=== PATIENT | male | born 1945 | race Caucasian/White ===

== ENCOUNTER 2016-10-18 05:23 | Inpatient (IN) | payer OTHER ==
--- NOTE | 2016-10-18 05:28 | PDOC ---
History of Present Illness - History of Present Illness Initial Comments: 10/18/16 06:04 The patient is a 72-year-old male BIB daughter via car with a significant past medical history of hypertension, hypercholesterolemia, diabetes, s/p triple bypass surgery, cardiac stent, paroxysmal Afib, and fibroids, and presents to the emergency department with bloody stools and a near syncopal episode tonight. The patient reports that he has had multiple episodes of bloody stools since 2am this morning, and there was a copious amount of blood. The patient reports associated nausea and diarrhea. As per daughter, the patient had a brief syncopal episode en route to the ED, during which he was unresponsive. He also reports associated pallor and diaphoresis. The patient denies any history of polyps. He denies any head trauma. The patient denies chest pain, shortness of breath, and headache. The patient denies fever, chills, vomit and constipation. The patient denies dysuria, frequency, urgency and hematuria. Allergies: NKDA Past Surgical History: Triple bypass heart surgery (16 months ago), colonoscopy PCP: Dr. Julito Aragon Tank Tender: Dr. Hannah Muir <Loly Worthington - Last Filed: 10/18/16 06:45> <Tayler Fernandez - Last Filed: 10/18/16 06:55> - General Stated Complaint: DIARRHEA, NEAR SYNCOPE Time Seen by Provider: 10/18/16 05:28 Past History <Loly Worthington - Last Filed: 10/18/16 06:45> - Past Medical History Anemia: No Asthma: No Cancer: No Cardiac Disorders: Yes (STENTS , A FIB; triple bypass sx in 11/25) CVA: No COPD: No CHF: No Dementia: No Diabetes: (NIDDM resolved) GI Disorders: Yes (REFLUX) Disorders: No HTN: Yes Hypercholesterolemia: Yes HIV: Yes (kidney stones) Liver Disease: No Seizures: No Thyroid Disease: No - Surgical History Abdominal Surgery: Yes (HERNIA SX REPAIRS) Appendectomy: No Cardiac Surgery: Yes (STENTS/tripple bypass 11/22/14) Cholecystectomy: No Orthopedic Surgery: Yes (ARTHROSCOPY KNEE;) - Immunization History Immunization Up to Date: Yes - Psycho/Social/Smoking Cessation Hx Anxiety: No Suicidal Ideation: No Smoking History: Never smoked Have you smoked in the past 12 months: No Hx Alcohol Use: No Drug/Substance Use Hx: No Substance Use Type: None Hx Substance Use Treatment: No <Tayler Fernandez - Last Filed: 10/18/16 06:55> - Past Medical History Allergies/Adverse Reactions: Allergies Allergy/AdvReac Type Severity Reaction Status Date / Time No Known Drug Allergies Allergy Verified 10/18/16 05:36 Home Medications: Ambulatory Orders Glyburide/Metformin HCl [Glyburide-Metformin 5-500 mg] 2.5 each PO HS 09/23/13 Atorvastatin Ca [Lipitor] 20 mg PO HS #0 tablet 09/26/13 Allopurinol [Zyloprim -] 100 mg PO DAILY 06/03/14 Finasteride 5 mg PO DAILY 06/28/15 Tamsulosin HCl 0.4 mg PO DAILY 06/28/15 Levothyroxine [Synthroid -] 25 mcg PO DAILY 04/06/16 Ranitidine [Zantac -] 150 mg PO DAILY 04/06/16 Sotalol HCl [Betapace -] 80 mg PO BID 04/06/16 Aspirin [ASA -] 81 mg PO DAILY 10/18/16 Glipizide [Glipizide ER] 2.5 mg PO DAILY 10/18/16 Paroxetine HCl 10 mg PO DAILY 10/18/16 Review of Systems - Review of Systems Able to Perform ROS?: Yes Comments:: 10/18/16 06:04 CONSTITUTIONAL: Present: (+) diaphoresis Absent: fever, chills, generalized weakness, malaise, loss of appetite HEENT: Absent: rhinorrhea, nasal congestion, throat pain, throat swelling, difficulty swallowing, mouth swelling, ear pain, eye pain, visual changes CARDIOVASCULAR: Present: (+) near syncope Absent: chest pain, palpitations, irregular heart rate, lightheadedness, peripheral edema RESPIRATORY: Absent: cough, shortness of breath, dyspnea with exertion, orthopnea, wheezing, stridor, hemoptysis GASTROINTESTINAL: Present: (+) hematochezia, (+) diarrhea, (+) nausea Absent: abdominal pain, abdominal distension, vomiting, constipation, melena GENITOURINARY: Absent: dysuria, frequency, urgency, hesitancy, hematuria, flank pain, genital pain MUSCULOSKELETAL: Absent: myalgia, arthralgia, joint swelling SKIN: Present: (+) pallor Absent: rash, itching HEMATOLOGIC/IMMUNOLOGIC: Absent: easy bleeding, easy bruising, lymphadenopathy, frequent infections ENDOCRINE: Absent: unexplained weight gain, unexplained weight loss, heat intolerance, cold intolerance NEUROLOGIC: Absent: headache, focal weakness or paresthesias, dizziness, unsteady gait, seizure, mental status changes, bladder or bowel incontinence PSYCHIATRIC: Absent: anxiety, depression, suicidal or homicidal ideation, hallucinations. <Loly Worthington - Last Filed: 10/18/16 06:45> *Physical Exam - Vital Signs Last Vital Signs Temp Pulse Resp BP Pulse Ox 97.9 F 59 L 20 119/63 100 10/18/16 05:46 10/18/16 05:46 10/18/16 05:46 10/18/16 05:46 10/18/16 05:46 - Physical Exam Comments: 10/18/16 06:42 GENERAL: Well developed, well nourished. Awake and alert. No acute distress. HEENT: Normocephalic, atraumatic. PERRLA, EOMI. No conjunctival pallor. Sclera are non- icteric. Moist mucous membranes. Oropharynx is clear. NECK: Supple. Full ROM. No JVD. Carotid pulses 2+ and symmetric, without bruits. No thyromegaly. No lymphadenopathy. CARDIOVASCULAR: Regular rate and rhythm. No murmurs, rubs, or gallops. Distal pulses are 2+ and symmetric. PULMONARY: No evidence of respiratory distress. Lungs clear to auscultation bilaterally. No wheezing, rales or rhonchi. ABDOMINAL: (+) Obese abdomen. (+) Large ventral hernia. Soft. Non-tender. No rebound or guarding. No organomegaly. Normoactive bowel sounds. MUSCULOSKELETAL Normal range of motion at all joints. No bony deformities or tenderness. No CVA tenderness. EXTREMITIES: No cyanosis. No clubbing. No pitting edema. No calf tenderness. SKIN: (+) Pale, (+) Poor capillary refill. (+) Cold and clammy. No rashes. No jaundice. NEUROLOGICAL: Alert, awake, appropriate. Cranial nerves 2-12 intact. No deficits to light touch and temperature in face, upper extremities and lower extremities. No motor deficits in the in face, upper extremities and lower extremities. Normoreflexic in the upper and lower extremities. Normal speech. Toes are down- going bilaterally. Gait is normal without ataxia. PSYCHIATRIC: Cooperative. Good eye contact. Appropriate mood and affect. <Loly Worthington - Last Filed: 10/18/16 06:45> ED Treatment Course - LABORATORY CBC & Chemistry Diagram: 10/18/16 05:30 10/18/16 05:30 - ADDITIONAL ORDERS Additional order review: 10/18/16 05:30 RBC 4.88 MCV 70.4 L MCHC 31.7 L RDW 16.6 H MPV 8.7 Neutrophils % 61.8 Lymphocytes % 24.9 Monocytes % 8.1 Eosinophils % 3.9 Basophils % 1.3 - Medications Given in the ED: ED Medications Discontinued Medications Generic Name Dose Route Start Last Admin Trade Name Raj PRN Reason Stop Dose Admin Sodium Chloride 500 ml 10/18/16 05:30 10/18/16 05:51 Normal Saline - IV 10/18/16 05:31 500 ml ONCE ONE Administration <Loly Worthington - Last Filed: 10/18/16 06:45> - LABORATORY CBC & Chemistry Diagram: 10/18/16 05:30 10/18/16 05:30 <Tayler Fernandez - Last Filed: 10/18/16 06:55> Medical Decision Making - Medical Decision Making 10/18/16 06:38 Patient Name: Antoine Dupree THIS IS A PRELIMINARY REPORT FROM [facility] EXAM: CT of the brain without contrast. IMAGES: 86. There is no intra/extra-axial hemorrhage, vasogenic edema/focal mass effect or CT evidence of acute infarction; mild-moderate white matter presumed microvascular disease changes. No disproportionate ventriculomegaly. Right maxillary, ethmoid and milder b/l frontal sinus mucoperiosteal disease; no air/fluid levels. The visualized portions of the paranasal sinuses, orbits and tympanomastoid cavities are otherwise unremarkable. Impression: no hemorrhage, gross acute infarct or mass. THIS DOCUMENT HAS BEEN ELECTRONICALLY SIGNED 10/18/16 06:53 Pt came in with diarrhea and GI bleed going on since 2 am today. He comes with a syncopal episode in his daughters car. Pt is stable on arrival. Hb is 10.9. 7 months previously his Hb was 13. Dr Aragon is aware of the patient and accepts him to the tele unit. He is requesting Dr. Villatoro for consultation GI; pt has normal cardiac enzymmes and flat T waves on EKG inferiorly. <Tayler Fernandez - Last Filed: 10/18/16 06:55> *DC/Admit/Observation/Transfer - Attestations Scribe Attestion: 10/18/16 06:05 Documentation prepared by Loly Worthington, acting as medical staff physician for Tayler Fernandez MD. <Loly Worthington - Last Filed: 10/18/16 06:45> - Discharge Dispostion Admit: Yes <Tayler Fernandez - Last Filed: 10/18/16 06:55> Diagnosis at time of Disposition: Rectal bleed, Syncope - Referrals
[2016-10-18] MEDS ORDERED: SODIUM CHLORIDE 0.9% 500 ML INFUS.BAG IV ONE (05:30)
[2016-10-18 05:48] LABS: BASOPHIL 1.3 % (0-2.0); EOSINOPHIL 3.9 % (0-4.5); MCH 22.3 pg (25.7-33.7); MCHC 31.7 g/dl (32.0-35.9); MEAN CELL VOLUME 70.4 fl (80-96); MEAN PLT VOLUME 8.7 fl (7.5-11.1); NEUTROPHILS 61.8 % (42.8-82.8); PLATELET COUNT 160 K/MM3 (134-434); RDW 16.6 % (11.9-15.9); WHITE BLOOD COUNT 10.4 K/mm3 (4.0-10.0)
[2016-10-18 05:57] LABS: INR 1.04 (0.82-1.09); PROTHROMBIN TIME (PATIENT) 11.5 SEC (9.98-11.88)
[2016-10-18 06:18] LABS: ALBUMIN 3.4 g/dl (3.4-5.0); ANION GAP 11 (8-16); BILIRUBIN,TOTAL 0.3 mg/dL (0.2-1.0); CALCIUM 8.8 mg/dL (8.5-10.1); CO2 22 mmol/L (21-32); CREATININE 1.3 mg/dL (0.7-1.3); GLUCOSE,RANDOM 251 mg/dL (74-106); SGPT/ALT 20 U/L (12-78); TOT PROT 6.5 g/dl (6.4-8.2)
[2016-10-18 06:20] LABS: ALK PHOS 46 U/L (45-117); TROPONIN I < 0.02 ng/ml (0.00-0.05)
[2016-10-18 06:25] LABS: SGOT/AST 21 U/L (15-37)
[2016-10-18] MEDS ORDERED: ONDANSETRON 4 MG/2 ML VIAL IVPUSH ONE ×2 (07:31→08:54)
[2016-10-18] MEDS ORDERED: ONDANSETRON 4 MG/2 ML VIAL ONE ×2 (07:34→08:56)
[2016-10-18 14:03] VITALS: BMI 36.3
--- NOTE | 2016-10-18 14:13 | CON.GI ---
Consult Consult Specialty:: Gastroenterology Referred by:: Dr. Aragon Reason for Consultation:: Rectal bleeding - History of Present Illness Chief Complaint: Awoken by crampy abdominal pain followed by 3 episodes of hemtochezia. History of Present Illness: 71M was awoken with crampy lower abdominal pain leading to 2 episodes of hematochezia. Took an Imodium but after having a 3rd episode he had his granddaughter bring him to the ER. He had a very brief syncopal spell in the car. No further episodes of hematochezia. Has nausea but no vomiting. Takes aspirin but no other blood thinners. No previous GI bleeding. Had colonoscopy with me about 10 years ago which he recalls being normal. He has chronic acid reflux. No FH of GI malignancies. Had cardiac stents 3 years ago and CABG 16 months ago at [facility] in [place]. Cardioverted for paroxysmal atrial fib x 2. Has an indwelling wireless rhythm transmitter. - History Source History Provided By: Patient Limitations to Obtaining History: No Limitations - Past Medical History Cardio/Vascular: Yes: AFIB (paroxysmal with 2 cardioversions. Has wireless rhythm transmitter), CAD (stents 2012, CABG 2014), CHF (EF 47% on 2014 echo), HTN, Hyperlipdemia Pulmonary: Yes: Sleep Apnea (does not prescribed use CPAP machine) Gastrointestinal: Yes: GERD Renal/: Yes: BPH, Renal Calculi (required cystoscopic extraction) Psych: Yes: Anxiety Rheumatology: Yes: Gout Endocrine: Yes: Diabetes Mellitus, Hypothyroidism - Past Surgical History Past Surgical History: Yes: CABG, Colonoscopy, Hernia Repair (right inguinal), Stent, Tonsillectomy - Alcohol/Substance Use Hx Alcohol Use: Yes (occasional wine) History of Substance Use: reports: None - Smoking History Smoking history: Former smoker (quit as teenager) Have you smoked in the past 12 months: No - Social History Usual Living Arrangement: With Spouse ADL: Independent 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 (year[place] age 19 History of Recent Travel: No Home Medications - Allergies Allergies/Adverse Reactions: Allergies Allergy/AdvReac Type Severity Reaction Status Date / Time No Known Drug Allergies Allergy Verified 10/18/16 05:36 - Home Medications Home Medications: Ambulatory Orders Glyburide/Metformin HCl [Glyburide-Metformin 5-500 mg] 2.5 each PO HS 09/23/13 Atorvastatin Ca [Lipitor] 20 mg PO HS #0 tablet 09/26/13 Allopurinol [Zyloprim -] 100 mg PO DAILY 06/03/14 Finasteride 5 mg PO DAILY 06/28/15 Tamsulosin HCl 0.4 mg PO DAILY 06/28/15 Levothyroxine [Synthroid -] 25 mcg PO DAILY 04/06/16 Ranitidine [Zantac -] 150 mg PO DAILY 04/06/16 Sotalol HCl [Betapace -] 80 mg PO BID 04/06/16 Aspirin [ASA -] 81 mg PO DAILY 10/18/16 Glipizide [Glipizide ER] 2.5 mg PO DAILY 10/18/16 Paroxetine HCl 10 mg PO DAILY 10/18/16 Family Disease History - Family Disease History Family Disease History: Diabetes: Brother, Heart Disease: Brother, Other: Father (lived to 93), Mother (liverd ot 88) Review of Systems - Review of Systems Constitutional: reports: No Symptoms Eyes: reports: No Symptoms HENT: reports: No Symptoms Neck: reports: No Symptoms Cardiovascular: reports: No Symptoms Respiratory: reports: No Symptoms Gastrointestinal: reports: Abdominal Pain, Nausea, Rectal Bleeding Genitourinary: reports: No Symptoms Musculoskeletal: reports: No Symptoms Neurological: reports: No Symptoms Physical Exam-GI Vital Signs: Vital Signs Temperature 98.0 F 10/18/16 06:43 Pulse Rate 62 10/18/16 13:40 Respiratory Rate 20 10/18/16 13:40 Blood Pressure 117/61 10/18/16 13:40 O2 Sat by Pulse Oximetry (%) 97 10/18/16 13:40 CBC,CMP WBC 10.4 K/mm3 (4.0-10.0) H 10/18/16 05:30 RBC 4.88 M/mm3 (4.00-5.60) 10/18/16 05:30 Hgb 10.9 GM/dL (11.7-16.9) L D 10/18/16 05:30 Hct 34.4 % (35.4-49) L D 10/18/16 05:30 MCV 70.4 fl (80-96) L 10/18/16 05:30 MCHC 31.7 g/dl (32.0-35.9) L 10/18/16 05:30 RDW 16.6 % (11.9-15.9) H 10/18/16 05:30 Plt Count 160 K/MM3 (134-434) D 10/18/16 05:30 MPV 8.7 fl (7.5-11.1) 10/18/16 05:30 Neutrophils % 61.8 % (42.8-82.8) 10/18/16 05:30 Lymphocytes % 24.9 % (8-40) 10/18/16 05:30 Monocytes % 8.1 % (3.8-10.2) 10/18/16 05:30 Eosinophils % 3.9 % (0-4.5) 10/18/16 05:30 Basophils % 1.3 % (0-2.0) 10/18/16 05:30 Sodium 137 mmol/L (136-145) 10/18/16 05:30 Potassium 4.5 mmol/L (3.5-5.1) 10/18/16 05:30 Chloride 104 mmol/L (98-107) 10/18/16 05:30 Carbon Dioxide 22 mmol/L (21-32) 10/18/16 05:30 Anion Gap 11 (8-16) 10/18/16 05:30 BUN 29 mg/dL (7-18) H D 10/18/16 05:30 Creatinine 1.3 mg/dL (0.7-1.3) 10/18/16 05:30 Creat Clearance w eGFR 54.11 (>60) 10/18/16 05:30 Random Glucose 251 mg/dL (74-106) H D 10/18/16 05:30 Calcium 8.8 mg/dL (8.5-10.1) 10/18/16 05:30 Total Bilirubin 0.3 mg/dL (0.2-1.0) D 10/18/16 05:30 AST 21 U/L (15-37) 10/18/16 05:30 ALT 20 U/L (12-78) D 10/18/16 05:30 Alkaline Phosphatase 46 U/L (45-117) 10/18/16 05:30 Creatine Kinase 106 IU/L (39-308) 10/18/16 05:30 Troponin I < 0.02 ng/ml (0.00-0.05) 10/18/16 05:30 Total Protein 6.5 g/dl (6.4-8.2) 10/18/16 05:30 Albumin 3.4 g/dl (3.4-5.0) 10/18/16 05:30 Constitutional: Yes: Calm Eyes: Yes: Conjunctiva Clear HENT: Yes: Normocephalic Neck: Yes: Supple Cardiovascular: Yes: Regular Rate and Rhythm Respiratory: Yes: CTA Bilaterally Gastrointestinal Inspection: Yes: Distention, Scars (healed RIH incision) ...Auscultate: Yes: Normoactive Bowel Sounds ...Palpate: Yes: Soft, Other (nontender) ...Rectal Exam: Yes: Guaiac Positive, Hemorrhoids/External, Other (2+ prostate, fresh red blood) Musculoskeletal: Yes: WNL Extremities: Yes: WNL Edema: No Neurological: Yes: Alert, Oriented Psychiatric: Yes: Alert Labs: INR, PTT INR 1.04 (0.82-1.09) 10/18/16 05:30 Problem List - Problems (1) Anemia associated with acute blood loss Code(s): D62 - ACUTE POSTHEMORRHAGIC ANEMIA (2) Abdominal pain Code(s): R10.9 - UNSPECIFIED ABDOMINAL PAIN (3) Gout Code(s): M10.9 - GOUT, UNSPECIFIED Assessment/Plan The presentation with crampy pain in a diabetic suggests ischemic colitis. Other potential sources of bleeding include diverticuli, angiodysplasias, hemorrhoids, stercoral ulcer, infectious colitis, UGI source such as NSAID gastritis or ulcer or GERD among other possibilities. I have discussed the need to undergo a colonoscopy to determine the source of bleeding and facilitate management. I have obtained an informed consent for colonoscopy after discussing the potential for such complications as perforation and hemorrhage. If no source is found he may come to need an EGD as well. Situation discussed in detail with the patient and his daughter. Will defer colonoscopy to allow bleeding to subside and for patient's condition to be optimized given his syncopal spell.
[2016-10-18 16:50] LABS: MCH 22.4 pg (25.7-33.7); PLATELET COUNT 145 K/MM3 (134-434); RDW 16.5 % (11.9-15.9); WHITE BLOOD COUNT 10.5 K/mm3 (4.0-10.0)
[2016-10-18] MEDS: PANTOPRAZOLE SODIUM 80 MG in SODIUM CHLORIDE 100 ML IVPB SCH (17:36)
[2016-10-18] MEDS: SODIUM CHLORIDE 0.45% 1,000 ML IV SCH (17:36)
[2016-10-18 18:38] LABS: BASOPHIL 0.8 % (0-2.0); EOSINOPHIL 2.1 % (0-4.5); MCH 22.3 pg (25.7-33.7); MCHC 31.9 g/dl (32.0-35.9); MEAN CELL VOLUME 69.9 fl (80-96); MEAN PLT VOLUME 8.5 fl (7.5-11.1); NEUTROPHILS 66.5 % (42.8-82.8); PLATELET COUNT 144 K/MM3 (134-434); WHITE BLOOD COUNT 10.6 K/mm3 (4.0-10.0)
[2016-10-18] MEDS: SOTALOL HCL 80 MG TABLET (FP) PO SCH (21:00)
[2016-10-18] MEDS: ATORVASTATIN CA 40 MG TABLET (FP) PO SCH (21:00)
--- NOTE | 2016-10-18 21:44 | EKG ---
Test Reason : Blood Pressure : / mmHG Vent. Rate : 055 BPM Atrial Rate : 055 BPM P-R Int : 164 ms QRS Dur : 092 ms QT Int : 478 ms P-R-T Axes : 026 000 018 degrees QTc Int : 457 ms SINUS BRADYCARDIA OTHERWISE NORMAL ECG WHEN COMPARED WITH ECG OF 18-OCT-2016 05:27, NO SIGNIFICANT CHANGE WAS FOUND Confirmed by EVIE COSTA MD ([id number]) on 10/18/2016 9:44:03 PM Referred By: Confirmed By:EVIE COSTA MD
--- NOTE | 2016-10-18 21:54 | EKG ---
Test Reason : Blood Pressure : / mmHG Vent. Rate : 061 BPM Atrial Rate : 061 BPM P-R Int : 162 ms QRS Dur : 096 ms QT Int : 462 ms P-R-T Axes : 046 010 010 degrees QTc Int : 465 ms NORMAL SINUS RHYTHM NORMAL ECG WHEN COMPARED WITH ECG OF 04-APR-2016 23:05, NO SIGNIFICANT CHANGE WAS FOUND Confirmed by EVIE COSTA MD ([id number]) on 10/18/2016 9:54:23 PM Referred By: Confirmed By:EVIE COSTA MD
[2016-10-19] MEDS: PANTOPRAZOLE SODIUM 80 MG in SODIUM CHLORIDE 100 ML IVPB SCH ×2 (01:09→11:16)
[2016-10-19] MEDS: LEVOTHYROXINE NA 25 MCG TABLET (FP) PO SCH (06:25)
[2016-10-19] MEDS: metFORMIN HCL 500 MG TABLET (FP) PO SCH (06:25)
[2016-10-19] MEDS: glyBURIDE 2.5 MG TABLET (FP) PO SCH (06:25)
[2016-10-19] MEDS: SODIUM CHLORIDE 0.45% 1,000 ML IV SCH (06:27)
[2016-10-19 07:21] LABS: INR 1.08 (0.82-1.09); PROTHROMBIN TIME (PATIENT) 11.9 SEC (9.98-11.88)
[2016-10-19 07:45] LABS: ALBUMIN 3.4 g/dl (3.4-5.0); BILIRUBIN,TOTAL 0.4 mg/dL (0.2-1.0); CALCIUM 8.9 mg/dL (8.5-10.1); CREATININE 1.3 mg/dL (0.7-1.3); TOT PROT 6.2 g/dl (6.4-8.2)
--- NOTE | 2016-10-19 09:15 | PN ---
Progress Note, Physician History of Present Illness: Admitted with rectal bleeding Diagnosed to have CAD/CABG diabetics - Current Medication List Current Medications: Active Medications Allopurinol (Zyloprim -) 100 mg PO DAILY [facility] Aspirin (Asa -) 81 mg PO DAILY [facility] Atorvastatin Calcium (Lipitor -) 40 mg PO HS [facility] Last Admin: 10/18/16 21:00 Dose: 40 mg Finasteride (Proscar -) 5 mg PO DAILY [facility] Glyburide (Diabeta -) 2.5 mg PO DAILY@0700 [facility] Last Admin: 10/19/16 06:25 Dose: 2.5 mg Pantoprazole Sodium 80 mg/ (Sodium Chloride) 100 mls @ 10 mls/hr IVPB Q10H [facility] PRN Reason: 8 MG/HR Last Admin: 10/19/16 01:09 Dose: 10 mls/hr Sodium Chloride (1/2 Normal Saline) 1,000 mls @ 75 mls/hr IV ASDIR [facility] Last Admin: 10/19/16 06:27 Dose: 75 mls/hr Levothyroxine Sodium (Synthroid -) 25 mcg PO DAILY@0700 [facility] Last Admin: 10/19/16 06:25 Dose: 25 mcg Metformin HCl (Glucophage -) 500 mg PO DAILY@0700 [facility] Last Admin: 10/19/16 06:25 Dose: 500 mg Sotalol HCl (Betapace -) 80 mg PO BID [facility] Last Admin: 10/18/16 21:00 Dose: 80 mg Tamsulosin HCl (Flomax -) 0.4 mg PO DAILY@0830 [facility] - Objective Vital Signs: Vital Signs Temperature 98.1 F 10/19/16 06:00 Pulse Rate 65 10/19/16 06:00 Respiratory Rate 20 10/19/16 06:00 Blood Pressure 151/79 10/19/16 06:00 O2 Sat by Pulse Oximetry (%) 98 10/19/16 05:00 Constitutional: Yes: No Distress Eyes: Yes: WNL HENT: Yes: WNL Neck: Yes: WNL Cardiovascular: Yes: Regular Rate and Rhythm Respiratory: Yes: WNL Gastrointestinal: Yes: Normal Bowel Sounds, Soft ...Rectal Exam: Yes: Deferred Neurological: Yes: Alert ...Motor Strength: WNL Labs: CBC, BMP 10/18/16 18:10 10/19/16 05:35 INR, PTT INR 1.08 (0.82-1.09) 10/19/16 05:35 Assessment/Plan Cleared for colonoscopy/ EKG to be evaluated
[2016-10-19] MEDS: ASPIRIN 81 MG CHEWABLE TABLETS PO SCH (10:05)
[2016-10-19] MEDS: TAMSULOSIN HCL 0.4 MG CAP.ER.24H (FP) PO SCH (10:05)
[2016-10-19] MEDS: FINASTERIDE 5 MG TABLET (FP) PO SCH (10:06)
[2016-10-19] MEDS: ALLOPURINOL 100 MG TABLET (FP) PO SCH (10:06)
[2016-10-19] MEDS: SOTALOL HCL 80 MG TABLET (FP) PO SCH ×2 (10:06→21:44)
--- NOTE | 2016-10-19 10:16 | HP ---
DATE OF ADMISSION: 10/18/2016 This is a 71-year-old male admitted with rectal bleeding. Patient was examined yesterday in the ER. He came to the ER with minimal abdominal pain and two to three times of rectal bleeding. His granddaughter brought him to the ER. When he came, he had a near syncopal episode. His hemoglobin had dropped from 13 to 10 and there was shameka blood, so got admitted. PAST MEDICAL HISTORY: Coronary artery bypass surgery 2 years ago at [facility] in [place]. Atrial fibrillation. He takes aspirin but no other blood thinners. Patient also diabetic. PHYSICAL EXAMINATION: Vital Signs: BP 130/80, pulse 72, respirations 20, temperature 98. HEENT: Unremarkable. Neck: Supple, no JVD. Lungs: Clear. Heart: S1, S2 normal. No S3, S4. Abdomen: benign, bowel sounds are normal. Rectal: Shameka blood present with maroon color. Extremities: Legs: No edema. Neurological: Grossly normal. LABORATORY REPORTS: Hemoglobin 9.8, hematocrit 30. Electrolytes normal. Blood sugar 110. Chest x-ray to be evaluated. IMPRESSION: Gastrointestinal bleeding. PLAN: Consult Dr. Villatoro. Admit to the telemetry unit. Polina [id number]
--- NOTE | 2016-10-19 10:40 | CON.CARD ---
Consult Consult Specialty:: Cardiology Referred by:: Julito Aragon MD Reason for Consultation:: Pre-procedural CV evaluation - History of Present Illness Chief Complaint: Hematochezia History of Present Illness: 71-year-old [place] male with past medical history significant for LV diastolic dysfxn, hypertension, paroxysmal A. fib ([id number]), CAD s/p multivessel PCI (stent), CABGx3 with MAZE procedure 11/2014, angina pectoris, NIDDM, chol, HTN, hypothyroidism presented with crampy lower abdominal pain leading to 2 episodes of hematochezia, diaphoresis with vasovagal syncope, nausea. Today reports epigastric burning since improved, denies chest tightness, palpitations, dyspnea , near or true syncope, orthopnea, PND or LE edema. Allergies: None Past surgical history: Abdominal hernia sx, triple bypass with stents (11/22/14) Social history: Former smoker (quit 12 years ago). He denies alcohol and drug use PCP - Dr.Abdul Aragon Train Starter - Dr. Killian - History Source History Provided By: Patient Limitations to Obtaining History: No Limitations - Past Medical History Cardio/Vascular: Yes: AFIB (paroxysmal with 2 cardioversions. Has wireless rhythm transmitter), CAD (stents 2012, CABG 2014), CHF (EF 47% on 2014 echo), HTN, Hyperlipdemia Pulmonary: Yes: Sleep Apnea (does not prescribed use CPAP machine) Gastrointestinal: Yes: GERD Renal/: Yes: BPH, Renal Calculi (required cystoscopic extraction) Psych: Yes: Anxiety Rheumatology: Yes: Gout Endocrine: Yes: Diabetes Mellitus, Hypothyroidism - Past Surgical History Past Surgical History: Yes: CABG, Colonoscopy, Hernia Repair (right inguinal), Stent, Tonsillectomy - Alcohol/Substance Use Hx Alcohol Use: Yes (occasional wine) History of Substance Use: reports: None - Smoking History Smoking history: Former smoker (quit as teenager) Have you smoked in the past 12 months: No - Social History Usual Living Arrangement: With Spouse ADL: Independent 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 History of Recent Travel: No Home Medications - Allergies Allergies/Adverse Reactions: Allergies Allergy/AdvReac Type Severity Reaction Status Date / Time No Known Drug Allergies Allergy Verified 10/18/16 05:36 - Home Medications Home Medications: Ambulatory Orders Glyburide/Metformin HCl [Glyburide-Metformin 5-500 mg] 2.5 each PO HS 09/23/13 Atorvastatin Ca [Lipitor] 20 mg PO HS #0 tablet 09/26/13 Allopurinol [Zyloprim -] 100 mg PO DAILY 06/03/14 Finasteride 5 mg PO DAILY 06/28/15 Tamsulosin HCl 0.4 mg PO DAILY 06/28/15 Levothyroxine [Synthroid -] 25 mcg PO DAILY 04/06/16 Ranitidine [Zantac -] 150 mg PO BID 04/06/16 Sotalol HCl [Betapace -] 80 mg PO BID 04/06/16 Aspirin [ASA -] 81 mg PO DAILY 10/18/16 Glipizide [Glipizide ER] 2.5 mg PO DAILY 10/18/16 Losartan Potassium [Cozaar] 25 mg PO DAILY 10/18/16 Paroxetine HCl 10 mg PO DAILY 10/18/16 Family Disease History - Family Disease History Family Disease History: Diabetes: Brother, Heart Disease: Brother, Other: Father (lived to 93), Mother (liverd ot 88) Review of Systems - Review of Systems Gastrointestinal: reports: Abdominal Pain, Indigestion, Rectal Bleeding Vital Signs: Vital Signs Temperature 98.1 F 10/19/16 06:00 Pulse Rate 65 10/19/16 06:00 Respiratory Rate 20 10/19/16 06:00 Blood Pressure 151/79 10/19/16 06:00 O2 Sat by Pulse Oximetry (%) 98 10/19/16 05:00 Constitutional: Yes: No Distress, Calm Respiratory: Yes: Regular Gastrointestinal: Yes: Normal Bowel Sounds, Soft Cardiovascular: Yes: Regular Rate and Rhythm JVD: No Carotid Bruit: No Heart Sounds: Yes: S1, S2 Edema: No - Other Data Labs, Other Data: CBC, BMP 10/18/16 18:10 10/19/16 05:35 INR, PTT INR 1.08 (0.82-1.09) 10/19/16 05:35 SB @ [address]-T changes Ejection Fraction %: LVEF > or = 40 % Imaging - Results Chest X-ray: Report Reviewed (NAD) Cat Scan: Report Reviewed (HCT: No acute changes) Problem List - Problems (1) Anemia associated with acute blood loss Code(s): D62 - ACUTE POSTHEMORRHAGIC ANEMIA (2) Syncope Code(s): R55 - SYNCOPE AND COLLAPSE Qualifiers: Syncope type: vasovagal syncope Qualified Code(s): R55 - Syncope and collapse (3) Atypical chest pain Code(s): R07.89 - OTHER CHEST PAIN (4) Coronary artery disease Code(s): I25.10 - ATHSCL HEART DISEASE OF [place] CORONARY ARTERY W/O ANG PCTRS Qualifiers: Coronary Disease-Associated Artery/Lesion type: [place] artery [place] vs. transplanted heart: [place] heart Associated angina: without angina Qualified Code(s): I25.10 - Atherosclerotic heart disease of [place] coronary artery without angina pectoris (5) Diabetes mellitus Code(s): E11.9 - TYPE 2 DIABETES MELLITUS WITHOUT COMPLICATIONS Qualifiers: Diabetes mellitus type: type 2 (6) Diastolic dysfunction Code(s): I51.9 - HEART DISEASE, UNSPECIFIED (7) Hyperlipidemia Code(s): E78.5 - HYPERLIPIDEMIA, UNSPECIFIED Qualifiers: Hyperlipidemia type: pure hypercholesterolemia Qualified Code(s): E78.0 - Pure hypercholesterolemia (8) Hypertension Code(s): I10 - ESSENTIAL (PRIMARY) HYPERTENSION Qualifiers: Hypertension type: essential hypertension Qualified Code(s): I10 - Essential (primary) hypertension (9) Hypothyroidism Code(s): E03.9 - HYPOTHYROIDISM, UNSPECIFIED Qualifiers: Hypothyroidism type: unspecified Qualified Code(s): E03.9 - Hypothyroidism, unspecified (10) Paroxysmal atrial fibrillation Code(s): I48.0 - PAROXYSMAL ATRIAL FIBRILLATION (11) S/P Maze operation for atrial fibrillation Code(s): Z98.89 - OTHER SPECIFIED POSTPROCEDURAL STATES * DO NOT USE * Z86.79 - PERSONAL HISTORY OF OTHER DISEASES OF THE CIRCULATORY SYSTEM (12) S/P coronary artery bypass graft x 3 Code(s): Z95.1 - PRESENCE OF AORTOCORONARY BYPASS GRAFT (13) Status post coronary artery stent placement Code(s): Z95.5 - PRESENCE OF CORONARY ANGIOPLASTY IMPLANT AND GRAFT Assessment/Plan 1. Chest pain syndrome atypical for CAD angina pectoris probably GERD 2. CAD post PCI/Stent/CABG angina pectoris 3. PAF post Cryo-Maze procedure, a/c deferred due to hematochezia 4. Diastolic LV dysfunction with no clinical LV failure 5. HTN 6. DM 7. Hypercholesterolemia 8. Hypothyroidism 9. Anemia r/o GI source with h/o hematochezia 10. Syncopal episode with prodromal sxs likely vasovagal etiology PLAN: 1. Continue sotalol 80 bid, losartan 25 qd 2. Continue Lipitor 20 qhs 3. Continue ASA 81 qd 4. Trial of antacids, check TSH, lipid panel, Ha1c 5. Plan for EGD and colonoscopy, may proceed from CV standpoint 6. Thank you for consultative opportunity
[2016-10-19] MEDS: LOSARTAN POTASSIUM 25 MG TABLET PO SCH (11:17)
[2016-10-19] MEDS ORDERED: MAG HYDROX/AL HYDROX/SIMETH 30 ML UNIT-DOSE CUP PO ONE (11:20)
--- NOTE | 2016-10-19 12:15 | PN ---
GI Progress Note Subjective: GI NOte: Dr Soriano's consult is appreciated. No bleeding overnight and Hct us stable. Has developed epigastric burning which he recognizes as his acid reflux. I have advised adding EGD to his colonoscopy as he agrees. - Objective Vital Signs: Vital Signs Temperature 98.1 F 10/19/16 06:00 Pulse Rate 65 10/19/16 06:00 Respiratory Rate 20 10/19/16 06:00 Blood Pressure 151/79 10/19/16 06:00 O2 Sat by Pulse Oximetry (%) 98 10/19/16 05:00 ...Auscultate: Yes: Normoactive Bowel Sounds ...Palpate: Yes: Soft, Other (nontender) Labs: CBC, BMP 10/18/16 18:10 10/19/16 05:35 INR, PTT INR 1.08 (0.82-1.09) 10/19/16 05:35 Laboratory Tests 10/18/16 10/19/16 18:10 05:35 WBC 10.6 H Hgb 9.7 L BUN 24 H Creatinine 1.3 Assessment/Plan GI bleeding appears to have subsided. Now has epigastric burning suggesting reflux but will need to exclude an ulcer or erosive gastritis. Will start prep in AM for egd and colonoscopy. Problem List - Problems (1) Anemia associated with acute blood loss Code(s): D62 - ACUTE POSTHEMORRHAGIC ANEMIA (2) Abdominal pain Code(s): R10.9 - UNSPECIFIED ABDOMINAL PAIN (3) Gout Code(s): M10.9 - GOUT, UNSPECIFIED
[2016-10-19] MEDS: POLYETHYLENE GLYCOL 3350 119 GM BTL PO SCH ×2 (12:33→21:45)
[2016-10-19 14:46] LABS: MCH 21.8 pg (25.7-33.7); MCHC 30.8 g/dl (32.0-35.9); MEAN CELL VOLUME 70.6 fl (80-96); PLATELET COUNT 120 K/MM3 (134-434); RDW 16.3 % (11.9-15.9); WHITE BLOOD COUNT 8.1 K/mm3 (4.0-10.0)
[2016-10-19 16:45] LABS: ANISOCYTOSIS 3+; HYPOCHROMIA 2+; MICROCYTOSIS 3+; OVALOCYTES 1+; PLATELET ESTIMATE DECREASED (NORMAL)
[2016-10-19] MEDS ORDERED: ACETAMINOPHEN 325 MG TABLET (FP) PO PRN (20:33)
[2016-10-19] MEDS ORDERED: ONDANSETRON 4 MG TABLET PO PRN (20:34)
[2016-10-19] MEDS: ATORVASTATIN CA 40 MG TABLET (FP) PO SCH (21:44)
[2016-10-19] MEDS: PANTOPRAZOLE 40 MG TABLET (FP) PO SCH (21:44)
[2016-10-19] MEDS: PARoxetine HCL 10 MG TABLET (FP) PO SCH (21:45)
--- NOTE | 2016-10-20 00:23 | EKG ---
Test Reason : Blood Pressure : / mmHG Vent. Rate : 062 BPM Atrial Rate : 062 BPM P-R Int : 164 ms QRS Dur : 096 ms QT Int : 440 ms P-R-T Axes : 007 002 016 degrees QTc Int : 446 ms NORMAL SINUS RHYTHM NONSPECIFIC T WAVE ABNORMALITY ABNORMAL ECG WHEN COMPARED WITH ECG OF 18-OCT-2016 08:34, NO SIGNIFICANT CHANGE WAS FOUND Confirmed by EDWARD LEDBETTER MD ([id number]) on 10/20/2016 12:22:50 AM Referred By: NAZIA AUSTIN Confirmed By:EDWARD LEDBETTER MD
[2016-10-20] MEDS: LEVOTHYROXINE NA 25 MCG TABLET (FP) PO SCH (06:00)
[2016-10-20] MEDS: glyBURIDE 2.5 MG TABLET (FP) PO SCH (06:01)
[2016-10-20] MEDS: metFORMIN HCL 500 MG TABLET (FP) PO SCH (06:01)
[2016-10-20 07:32] LABS: BASOPHIL 0.5 % (0-2.0); EOSINOPHIL 3.4 % (0-4.5); MCH 22.3 pg (25.7-33.7); MCHC 31.7 g/dl (32.0-35.9); MEAN CELL VOLUME 70.4 fl (80-96); MEAN PLT VOLUME 8.9 fl (7.5-11.1); NEUTROPHILS 61.4 % (42.8-82.8); PLATELET COUNT 123 K/MM3 (134-434); RDW 16.2 % (11.9-15.9); WHITE BLOOD COUNT 6.6 K/mm3 (4.0-10.0)
[2016-10-20 08:03] LABS: CREATININE 1.3 mg/dL (0.7-1.3); THYROID STIMULATING HORMONE 2.21 uIU/ml (0.358-3.74)
[2016-10-20] MEDS ORDERED: PEG3350/SOD SULF,BICARB,CL/KCL 4,000 ML SOLN.RECON PO ONE (09:00)
--- NOTE | 2016-10-20 09:25 | PN ---
Progress Note, Physician Chief Complaint: No chest pain edith Hutchins cardiology consult appreciated - Current Medication List Current Medications: Active Medications Acetaminophen (Tylenol -) 650 mg PO Q4H PRN PRN Reason: FEVER OR PAIN Last Admin: 10/19/16 20:54 Dose: 650 mg Allopurinol (Zyloprim -) 100 mg PO DAILY [facility] Last Admin: 10/19/16 10:06 Dose: 100 mg Aspirin (Asa -) 81 mg PO DAILY [facility] Last Admin: 10/19/16 10:05 Dose: 81 mg Atorvastatin Calcium (Lipitor -) 40 mg PO HS [facility] Last Admin: 10/19/16 21:44 Dose: 40 mg Bisacodyl (Dulcolax -) 20 mg PO ONCE ONE Stop: 10/20/16 18:01 Finasteride (Proscar -) 5 mg PO DAILY [facility] Last Admin: 10/19/16 10:06 Dose: 5 mg Glyburide (Diabeta -) 2.5 mg PO DAILY@0700 [facility] Last Admin: 10/20/16 06:01 Dose: 2.5 mg Levothyroxine Sodium (Synthroid -) 25 mcg PO DAILY@0700 [facility] Last Admin: 10/20/16 06:00 Dose: 25 mcg Losartan Potassium (Cozaar -) 25 mg PO DAILY [facility] Last Admin: 10/19/16 11:17 Dose: 25 mg Metformin HCl (Glucophage -) 500 mg PO DAILY@0700 [facility] Last Admin: 10/20/16 06:01 Dose: 500 mg Ondansetron HCl (Zofran -) 4 mg PO Q8H PRN PRN Reason: NAUSEA AND/OR VOMITING Last Admin: 10/19/16 20:55 Dose: 4 mg Pantoprazole Sodium (Protonix -) 40 mg PO BID [facility] Last Admin: 10/19/16 21:44 Dose: 40 mg Paroxetine HCl (Paxil -) 10 mg PO DAILY [facility] Last Admin: 10/19/16 21:45 Dose: 10 mg Polyethylene Glycol (Miralax (For Daily Use) -) 17 gm PO BID [facility] Last Admin: 10/19/16 21:45 Dose: 17 gm Sotalol HCl (Betapace -) 80 mg PO BID [facility] Last Admin: 10/19/16 21:44 Dose: 80 mg Tamsulosin HCl (Flomax -) 0.4 mg PO DAILY@0830 [facility] Last Admin: 10/19/16 10:05 Dose: 0.4 mg - Objective Vital Signs: Vital Signs Temperature 98.5 F 10/20/16 06:00 Pulse Rate 62 10/20/16 06:00 Respiratory Rate 20 10/20/16 06:00 Blood Pressure 155/81 10/20/16 06:00 O2 Sat by Pulse Oximetry (%) 96 10/19/16 20:42 Constitutional: Yes: No Distress Eyes: Yes: WNL HENT: Yes: WNL Neck: Yes: WNL Respiratory: Yes: Regular Gastrointestinal: Yes: Normal Bowel Sounds Genitourinary: Yes: WNL Breast(s): Yes: WNL Neurological: Yes: Alert Labs: CBC, BMP 10/20/16 05:35 10/20/16 05:35 INR, PTT INR 1.08 (0.82-1.09) 10/19/16 05:35 Assessment/Plan EGD and colonoscopy today
[2016-10-20] MEDS: SOTALOL HCL 80 MG TABLET (FP) PO SCH ×2 (09:49→21:37)
[2016-10-20] MEDS: ASPIRIN 81 MG CHEWABLE TABLETS PO SCH (09:49)
[2016-10-20] MEDS: PANTOPRAZOLE 40 MG TABLET (FP) PO SCH ×2 (09:49→21:37)
[2016-10-20] MEDS: ALLOPURINOL 100 MG TABLET (FP) PO SCH (09:49)
[2016-10-20] MEDS: FINASTERIDE 5 MG TABLET (FP) PO SCH (09:49)
[2016-10-20] MEDS: LOSARTAN POTASSIUM 25 MG TABLET PO SCH (09:49)
[2016-10-20] MEDS: TAMSULOSIN HCL 0.4 MG CAP.ER.24H (FP) PO SCH (09:49)
[2016-10-20] MEDS: PARoxetine HCL 10 MG TABLET (FP) PO SCH (09:49)
[2016-10-20] MEDS: POLYETHYLENE GLYCOL 3350 119 GM BTL PO SCH ×2 (09:50→21:38)
--- NOTE | 2016-10-20 10:57 | PN ---
Progress Note (short form) - Note Progress Note: Chief Complaint: Events noted, notes reviewed, denies any chest pain or dyspnea History of Present Illness: Seen and examined on telemetry. Events noted, notes reviewed, denies any chest pain or dyspnea Medications: Current Medications Acetaminophen (Tylenol -) 650 mg PO Q4H PRN PRN Reason: FEVER OR PAIN Last Admin: 10/19/16 20:54 Dose: 650 mg Allopurinol (Zyloprim -) 100 mg PO DAILY [facility] Last Admin: 10/20/16 09:49 Dose: 100 mg Aspirin (Asa -) 81 mg PO DAILY [facility] Last Admin: 10/20/16 09:49 Dose: 81 mg Atorvastatin Calcium (Lipitor -) 40 mg PO HS [facility] Last Admin: 10/19/16 21:44 Dose: 40 mg Bisacodyl (Dulcolax -) 20 mg PO ONCE ONE Stop: 10/20/16 18:01 Finasteride (Proscar -) 5 mg PO DAILY [facility] Last Admin: 10/20/16 09:49 Dose: 5 mg Glyburide (Diabeta -) 2.5 mg PO DAILY@0700 [facility] Last Admin: 10/20/16 06:01 Dose: 2.5 mg Levothyroxine Sodium (Synthroid -) 25 mcg PO DAILY@0700 [facility] Last Admin: 10/20/16 06:00 Dose: 25 mcg Losartan Potassium (Cozaar -) 25 mg PO DAILY [facility] Last Admin: 10/20/16 09:49 Dose: 25 mg Metformin HCl (Glucophage -) 500 mg PO DAILY@0700 [facility] Last Admin: 10/20/16 06:01 Dose: 500 mg Ondansetron HCl (Zofran -) 4 mg PO Q8H PRN PRN Reason: NAUSEA AND/OR VOMITING Last Admin: 10/19/16 20:55 Dose: 4 mg Pantoprazole Sodium (Protonix -) 40 mg PO BID [facility] Last Admin: 10/20/16 09:49 Dose: 40 mg Paroxetine HCl (Paxil -) 10 mg PO DAILY [facility] Last Admin: 10/20/16 09:49 Dose: 10 mg Polyethylene Glycol (Miralax (For Daily Use) -) 17 gm PO BID [facility] Last Admin: 10/20/16 09:50 Dose: 17 gm Sotalol HCl (Betapace -) 80 mg PO BID [facility] Last Admin: 10/20/16 09:49 Dose: 80 mg Tamsulosin HCl (Flomax -) 0.4 mg PO DAILY@0830 [facility] Last Admin: 10/20/16 09:49 Dose: 0.4 mg Review of Systems - Review of Systems Constitutional: no symptoms reported Respiratory: denies Cough or Sputum Production Cardiovascular: as noted above Gastrointestinal: denies Nausea, Vomiting, Diarrhea, Constipation or Abdominal Pain Genitourinary: no symptoms reported Musculoskeletal: no symptoms reported Endocrine: Diabetes Mellitus Vital Signs: Last Vital Signs Temp Pulse Resp BP Pulse Ox 98.5 F 62 20 155/81 96 10/20/16 06:00 10/20/16 06:00 10/20/16 06:00 10/20/16 06:00 10/19/16 20:42 Constitutional: No Distress, Calm Neck: Supple Negative JVD No Bruit Respiratory: Clear to A&P Bilaterally Cardiovascular: S1 S2 Regular Rate and Rhythm Grade 1/6 SM Gastrointestinal: Soft Benign Normal Bowel Sounds Ext: No Edema Labs: CBC, BMP 10/20/16 05:35 10/20/16 05:35 INR, PTT INR 1.08 (0.82-1.09) 10/19/16 05:35 Hepatic Panel Total Bilirubin 0.4 mg/dL (0.2-1.0) D 10/19/16 05:35 AST 11 U/L (15-37) L D 10/19/16 05:35 ALT 17 U/L (12-78) 10/19/16 05:35 Alkaline Phosphatase 43 U/L (45-117) L 10/19/16 05:35 Albumin 3.4 g/dl (3.4-5.0) 10/19/16 05:35 ASSESSMENT/PLAN: ASSESSMENT: 1. Chest pain syndrome atypical for CAD angina pectoris probably musculo- skeletal discomfort 2. CAD post PCI/Stent/CABG angina pectoris 3. PAF post Cryo-Maze procedure, [id number] score of 4 on no A/C 4. Diastolic LV dysfunction with class 0 NYHA classification LV failure 5. HTN 6. DM 7. Hypercholesterolemia 8. Anemia R/O GI source with history of hematochezia 9. Syncopal episode with prodromal symptoms most likely vasovagal etiology 10. Hypothyroidism PLAN: 1. Continue Sotalol 2. Continue Losartan 2. Continue Lipitor 3. Continue ASA 4. To proceed with EGD and colonoscopy, there are no absolute contraindications in proceeding with planned procedures considering that there is no evidence of ACS and/or decompensated LV failure and/or malignant ventricular arrhythmias Felicia Lemus M.D.
[2016-10-20] MEDS ORDERED: INSULIN (NOVOLOG) ASPART 100 UNITS/ML 10ML VIAL ONE (11:28)
[2016-10-20 15:26] LABS: MCH 22.2 pg (25.7-33.7); MCHC 31.7 g/dl (32.0-35.9); MEAN PLT VOLUME 8.5 fl (7.5-11.1); PLATELET COUNT 132 K/MM3 (134-434); RDW 16.4 % (11.9-15.9)
[2016-10-20] MEDS ORDERED: BISACODYL 5 MG TABLET.DR (FP) PO ONE (18:00)
[2016-10-20] MEDS: ATORVASTATIN CA 40 MG TABLET (FP) PO SCH (21:37)
[2016-10-21] MEDS: glyBURIDE 2.5 MG TABLET (FP) PO SCH (06:00)
[2016-10-21] MEDS: LEVOTHYROXINE NA 25 MCG TABLET (FP) PO SCH (06:00)
[2016-10-21] MEDS: metFORMIN HCL 500 MG TABLET (FP) PO SCH (06:00)
--- NOTE | 2016-10-21 09:30 | DS ---
Physical Examination Vital Signs: Vital Signs Temperature 98.2 F 10/21/16 06:00 Pulse Rate 61 10/21/16 06:00 Respiratory Rate 18 10/21/16 06:00 Blood Pressure 142/79 10/21/16 06:00 O2 Sat by Pulse Oximetry (%) 97 10/20/16 21:00 Findings/Remarks: Admitted with rectal bleeding,no active bleeding now Scheduled for EGD and colonoscopy today Constitutional: Yes: No Distress Eyes: Yes: WNL HENT: Yes: WNL Neck: Yes: WNL Cardiovascular: Yes: WNL Respiratory: Yes: WNL ...Rectal Exam: Yes: Deferred Breast(s): Yes: WNL Extremities: Yes: WNL Edema: No Peripheral Pulses WNL: Yes Wound/Incision: No: Steri Strips Neurological: Yes: Alert ...Motor Strength: WNL Psychiatric: Yes: WNL Labs: CBC, BMP 10/20/16 14:45 10/20/16 05:35 Discharge Summary Reason For Visit: HEMORRHAGE Current Active Problems Abdominal pain (Acute) Anemia associated with acute blood loss (Acute) Gout (Acute) Rectal bleed (Acute) Syncope (Acute) - Instructions Referrals: Julito Aragon MD [Primary Care Provider] - - Home Medications Comprehensive Discharge Medication List: Ambulatory Orders Glyburide/Metformin HCl [Glyburide-Metformin 5-500 mg] 2.5 each PO HS 09/23/13 Atorvastatin Ca [Lipitor] 20 mg PO HS #0 tablet 09/26/13 Allopurinol [Zyloprim -] 100 mg PO DAILY 06/03/14 Finasteride 5 mg PO DAILY 06/28/15 Tamsulosin HCl 0.4 mg PO DAILY 06/28/15 Levothyroxine [Synthroid -] 25 mcg PO DAILY 04/06/16 Ranitidine [Zantac -] 150 mg PO BID 04/06/16 Sotalol HCl [Betapace -] 80 mg PO BID 04/06/16 Aspirin [ASA -] 81 mg PO DAILY 10/18/16 Glipizide [Glipizide ER] 2.5 mg PO DAILY 10/18/16 Losartan Potassium [Cozaar] 25 mg PO DAILY 10/18/16 Paroxetine HCl 10 mg PO DAILY 10/18/16
[2016-10-21] MEDS: POLYETHYLENE GLYCOL 3350 119 GM BTL PO SCH ×2 (10:00→22:02)
[2016-10-21] MEDS: ASPIRIN 81 MG CHEWABLE TABLETS PO SCH (10:00)
[2016-10-21] MEDS ORDERED: PROPOFOL 20 ML ONE ×3 (11:11)
--- NOTE | 2016-10-21 11:29 | PN ---
Progress Note (short form) - Note Progress Note: S: Active Medications Generic Name Dose Route Start Last Admin Trade Name Freq PRN Reason Stop Dose Admin Acetaminophen 650 mg 10/19/16 20:33 10/19/16 20:54 Tylenol - PO 650 mg Q4H PRN Administration FEVER OR PAIN Allopurinol 100 mg 10/19/16 10:00 10/20/16 09:49 Zyloprim - PO 100 mg DAILY [facility] Administration Aspirin 81 mg 10/19/16 10:00 10/20/16 09:49 Asa - PO 81 mg DAILY [facility] Administration Atorvastatin Calcium 40 mg 10/18/16 22:00 10/20/16 21:37 Lipitor - PO 40 mg HS [facility] Administration Finasteride 5 mg 10/19/16 10:00 10/20/16 09:49 Proscar - PO 5 mg DAILY [facility] Administration Glyburide 2.5 mg 10/19/16 07:00 10/21/16 06:00 Diabeta - PO Not Given DAILY@0700 [facility] Levothyroxine Sodium 25 mcg 10/19/16 07:00 10/21/16 06:00 Synthroid - PO Not Given DAILY@0700 [facility] Losartan Potassium 25 mg 10/19/16 11:20 10/20/16 09:49 Cozaar - PO 25 mg DAILY [facility] Administration Metformin HCl 500 mg 10/19/16 07:00 10/21/16 06:00 Glucophage - PO Not Given DAILY@0700 [facility] Ondansetron HCl 4 mg 10/19/16 20:34 10/19/16 20:55 Zofran - PO 4 mg Q8H PRN Administration NAUSEA AND/OR VOMITING Pantoprazole Sodium 40 mg 10/19/16 22:00 10/20/16 21:37 Protonix - PO 40 mg BID [facility] Administration Paroxetine HCl 10 mg 10/19/16 20:45 10/20/16 09:49 Paxil - PO 10 mg DAILY [facility] Administration Polyethylene Glycol 17 gm 10/19/16 12:30 10/20/16 21:38 Miralax (For Daily Use) - PO 17 gm BID [facility] Administration Sotalol HCl 80 mg 10/18/16 22:00 10/20/16 21:37 Betapace - PO 80 mg BID [facility] Administration Tamsulosin HCl 0.4 mg 10/19/16 08:30 10/20/16 09:49 Flomax - PO 0.4 mg DAILY@0830 [facility] Administration O: 71 year old male was in no acute distress, no pallor, cyanosis, clubbing, or jaundice. Last Vital Signs Temp Pulse Resp BP Pulse Ox 98.2 F 58 L 18 137/77 98 10/21/16 06:00 10/21/16 10:00 10/21/16 10:00 10/21/16 10:00 10/21/16 10:00 Neck: Supple, no JVD, negative HJR, carotids were equal and upstrokes were normal, no thyromegaly appreciated. Heart: PMI was in the 5th intercostal space, no heaves or thrills, S1 and S2 were normal. No murmurs or gallops were appreciated. Lungs: Clear on auscultation bilaterally. Abdomen: Soft, nontender, no hepatosplenomegaly appreciated, and no palpable masses were felt. Extremities: No calf tenderness or dependent edema. Pulses are normal. CBC, BMP 10/20/16 14:45 10/20/16 05:35 Laboratory Results - last 24 hr 10/20/16 10/21/16 14:45 05:49 WBC 7.0 RBC 4.30 Hgb 9.5 L Hct 30.1 L MCV 70.0 L MCHC 31.7 L RDW 16.4 H Plt Count 132 L MPV 8.5 POC Glucometer 157 Impression: (1) Anemia associated with acute blood loss Code(s): D62 - ACUTE POSTHEMORRHAGIC ANEMIA (2) Syncope Code(s): R55 - SYNCOPE AND COLLAPSE Qualifiers: Syncope type: vasovagal syncope Qualified Code(s): R55 - Syncope and collapse (3) Atypical chest pain Code(s): R07.89 - OTHER CHEST PAIN (4) Coronary artery disease Code(s): I25.10 - ATHSCL HEART DISEASE OF [place] CORONARY ARTERY W/O ANG PCTRS Qualifiers: Coronary Disease-Associated Artery/Lesion type: [place] artery [place] vs. transplanted heart: [place] heart Associated angina: without angina Qualified Code(s): I25.10 - Atherosclerotic heart disease of [place] coronary artery without angina pectoris (5) Diabetes mellitus Code(s): E11.9 - TYPE 2 DIABETES MELLITUS WITHOUT COMPLICATIONS Qualifiers: Diabetes mellitus type: type 2 (6) Diastolic dysfunction Code(s): I51.9 - HEART DISEASE, UNSPECIFIED (7) Hyperlipidemia Code(s): E78.5 - HYPERLIPIDEMIA, UNSPECIFIED Qualifiers: Hyperlipidemia type: pure hypercholesterolemia Qualified Code(s): E78.0 - Pure hypercholesterolemia (8) Hypertension Code(s): I10 - ESSENTIAL (PRIMARY) HYPERTENSION Qualifiers: Hypertension type: essential hypertension Qualified Code(s): I10 - Essential (primary) hypertension (9) Hypothyroidism Code(s): E03.9 - HYPOTHYROIDISM, UNSPECIFIED Qualifiers: Hypothyroidism type: unspecified Qualified Code(s): E03.9 - Hypothyroidism, unspecified (10) Paroxysmal atrial fibrillation Code(s): I48.0 - PAROXYSMAL ATRIAL FIBRILLATION (11) S/P Maze operation for atrial fibrillation Code(s): Z98.89 - OTHER SPECIFIED POSTPROCEDURAL STATES * DO NOT USE * Z86.79 - PERSONAL HISTORY OF OTHER DISEASES OF THE CIRCULATORY SYSTEM (12) S/P coronary artery bypass graft x 3 Code(s): Z95.1 - PRESENCE OF AORTOCORONARY BYPASS GRAFT (13) Status post coronary artery stent placement Code(s): Z95.5 - PRESENCE OF CORONARY ANGIOPLASTY IMPLANT AND GRAFT Recommendations: Prognosis: Attestation: Documentation prepared by Jonatan Osuna, acting as medical data analyst for Leoncio Agee MD.
--- NOTE | 2016-10-21 12:59 | PN ---
Progress Note (short form) - Note Progress Note: GI procedure NOte: Please see EGD and colonoscopy reports. 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 Two tattoos were applied distal to it as there was 2 proximal transverse colon polyps of a significant size that should be included in the resection. I have informed Antoine and his family of the finding and need for surgical resection. They are trying to decide whether to have the surgery done here or at [facility] in [place]. I will order a CT scan and CEA level in the interim and keep Antoine on a clear liquid diet. Problem List - Problems (1) Anemia associated with acute blood loss Code(s): D62 - ACUTE POSTHEMORRHAGIC ANEMIA (2) Abdominal pain Code(s): R10.9 - UNSPECIFIED ABDOMINAL PAIN (3) Gout Code(s): M10.9 - GOUT, UNSPECIFIED
[2016-10-21] MEDS ORDERED: PT OWN MED DRAWER 7, Y5N ONE (13:37)
[2016-10-21] MEDS: ALLOPURINOL 100 MG TABLET (FP) PO SCH (13:47)
[2016-10-21] MEDS: TAMSULOSIN HCL 0.4 MG CAP.ER.24H (FP) PO SCH (13:47)
[2016-10-21] MEDS: PANTOPRAZOLE 40 MG TABLET (FP) PO SCH ×2 (13:47→22:01)
[2016-10-21] MEDS: PARoxetine HCL 10 MG TABLET (FP) PO SCH (13:47)
[2016-10-21] MEDS: SOTALOL HCL 80 MG TABLET (FP) PO SCH ×2 (13:47→22:01)
[2016-10-21] MEDS: FINASTERIDE 5 MG TABLET (FP) PO SCH (13:48)
[2016-10-21] MEDS: LOSARTAN POTASSIUM 25 MG TABLET PO SCH (13:48)
[2016-10-21 14:48] LABS: MCH 22.3 pg (25.7-33.7); MCHC 31.6 g/dl (32.0-35.9); MEAN CELL VOLUME 70.5 fl (80-96); MEAN PLT VOLUME 8.1 fl (7.5-11.1); PLATELET COUNT 127 K/MM3 (134-434); RDW 16.6 % (11.9-15.9); WHITE BLOOD COUNT 6.7 K/mm3 (4.0-10.0)
--- NOTE | 2016-10-21 16:36 | CONSULT ---
Consult Consult Specialty:: Surgery Referred by:: Dr. Aragon Reason for Consultation:: Colonic tumor - History of Present Illness Chief Complaint: 71 year old man is admitted with acute rectal bleeding. and found to have two tumors in transverse colon, which has been biopsied today Pathology is pending. - History Source History Provided By: Patient, Family Member Limitations to Obtaining History: No Limitations - Past Medical History Cardio/Vascular: Yes: AFIB (paroxysmal with 2 cardioversions. Has wireless rhythm transmitter), CAD (stents 2012, CABG 2014), CHF (EF 47% on 2014 echo), HTN, Hyperlipdemia Pulmonary: Yes: Sleep Apnea (does not prescribed use CPAP machine) Gastrointestinal: Yes: GERD Renal/: Yes: BPH, Renal Calculi (required cystoscopic extraction) Psych: Yes: Anxiety Rheumatology: Yes: Gout Endocrine: Yes: Diabetes Mellitus, Hypothyroidism - Past Surgical History Past Surgical History: Yes: CABG, Colonoscopy, Hernia Repair (right inguinal), Stent, Tonsillectomy - Alcohol/Substance Use Hx Alcohol Use: Yes (occasional wine) History of Substance Use: reports: None - Smoking History Smoking history: Former smoker (quit as teenager) Have you smoked in the past 12 months: No - Social History Usual Living Arrangement: With Spouse ADL: Independent 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 [place] History of Recent Travel: No Home Medications - Allergies Allergies/Adverse Reactions: Allergies Allergy/AdvReac Type Severity Reaction Status Date / Time No Known Drug Allergies Allergy Verified 10/18/16 05:36 - Home Medications Home Medications: Ambulatory Orders Glyburide/Metformin HCl [Glyburide-Metformin 5-500 mg] 2.5 each PO HS 09/23/13 Atorvastatin Ca [Lipitor] 20 mg PO HS #0 tablet 09/26/13 Allopurinol [Zyloprim -] 100 mg PO DAILY 06/03/14 Finasteride 5 mg PO DAILY 06/28/15 Tamsulosin HCl 0.4 mg PO DAILY 06/28/15 Levothyroxine [Synthroid -] 25 mcg PO DAILY 04/06/16 Ranitidine [Zantac -] 150 mg PO BID 04/06/16 Sotalol HCl [Betapace -] 80 mg PO BID 04/06/16 Aspirin [ASA -] 81 mg PO DAILY 10/18/16 Glipizide [Glipizide ER] 2.5 mg PO DAILY 10/18/16 Losartan Potassium [Cozaar] 25 mg PO DAILY 10/18/16 Paroxetine HCl 10 mg PO DAILY 10/18/16 Family Disease History - Family Disease History Family Disease History: Diabetes: Brother, Heart Disease: Brother, Other: Father (lived to 93), Mother (liverd ot 88) Physical Exam Vital Signs: Vital Signs Temperature 98.3 F 10/21/16 16:11 Pulse Rate 60 10/21/16 16:11 Respiratory Rate 20 10/21/16 16:11 Blood Pressure 122/70 10/21/16 16:11 O2 Sat by Pulse Oximetry (%) 100 10/21/16 13:12 Gastrointestinal: Yes: Abdomen, Obese Labs: CBC, BMP 10/21/16 14:30 10/20/16 05:35 Imaging - Results Other: Other (Colonoscopy views noted.) Problem List - Problems (1) Colonic mass Code(s): K63.9 - DISEASE OF INTESTINE, UNSPECIFIED (2) Anemia associated with acute blood loss Code(s): D62 - ACUTE POSTHEMORRHAGIC ANEMIA (3) Obesity Code(s): E66.9 - OBESITY, UNSPECIFIED Qualifiers: Obesity type: due to excess calories Obesity severity: morbid Qualified Code(s): E66.01 - Morbid (severe) obesity due to excess calories (4) Coronary artery disease Code(s): I25.10 - ATHSCL HEART DISEASE OF [place] CORONARY ARTERY W/O ANG PCTRS Qualifiers: Coronary Disease-Associated Artery/Lesion type: [place] artery [place] vs. transplanted heart: [place] heart Associated angina: without angina Qualified Code(s): I25.10 - Atherosclerotic heart disease of [place] coronary artery without angina pectoris (5) Hypertension Code(s): I10 - ESSENTIAL (PRIMARY) HYPERTENSION Qualifiers: Hypertension type: essential hypertension Qualified Code(s): I10 - Essential (primary) hypertension (6) Thrombocytopenia Code(s): D69.6 - THROMBOCYTOPENIA, UNSPECIFIED Assessment/Plan Colonic mass , 2 in proximal transverse colon , biopsied. Possible cause of acute bleeding. Also had a polyp removed from the rectum. Await biopsy report . Will need colectomy , ? right hemicolectomy, laparoscopic , possible open. Has thrombocytopenia, ? secondary to aspirin intake, will need to hold aspirin, disscussed with Dr. Aragon. Procedure , risks, benefits and complications and alternatives were explained. I have explained to the patient , his son and daughter.
[2016-10-21] MEDS: ATORVASTATIN CA 40 MG TABLET (FP) PO SCH (22:02)
[2016-10-21] MEDS: DEXTROSE 5%-0.45% SALINE 1,000 ML IV SCH (22:02)
[2016-10-22] MEDS: metFORMIN HCL 500 MG TABLET (FP) PO SCH (06:23)
[2016-10-22] MEDS: LEVOTHYROXINE NA 25 MCG TABLET (FP) PO SCH (06:27)
[2016-10-22] MEDS: glyBURIDE 2.5 MG TABLET (FP) PO SCH (06:27)
[2016-10-22] MEDS: TAMSULOSIN HCL 0.4 MG CAP.ER.24H (FP) PO SCH (08:07)
[2016-10-22 08:28] LABS: BASOPHIL 0.5 % (0-2.0); EOSINOPHIL 3.5 % (0-4.5); MCH 22.2 pg (25.7-33.7); MCHC 31.4 g/dl (32.0-35.9); MEAN CELL VOLUME 70.6 fl (80-96); MEAN PLT VOLUME 9.3 fl (7.5-11.1); NEUTROPHILS 66.9 % (42.8-82.8); PLATELET COUNT 124 K/MM3 (134-434); RDW 16.4 % (11.9-15.9); WHITE BLOOD COUNT 5.9 K/mm3 (4.0-10.0)
[2016-10-22 08:50] LABS: CALCIUM 8.4 mg/dL (8.5-10.1); CREATININE 1.2 mg/dL (0.7-1.3)
[2016-10-22] MEDS: ASPIRIN 81 MG CHEWABLE TABLETS PO SCH (10:23)
[2016-10-22] MEDS: SOTALOL HCL 80 MG TABLET (FP) PO SCH ×2 (10:47→22:17)
[2016-10-22] MEDS: LOSARTAN POTASSIUM 25 MG TABLET PO SCH (10:47)
[2016-10-22] MEDS: ALLOPURINOL 100 MG TABLET (FP) PO SCH (10:47)
[2016-10-22] MEDS: PANTOPRAZOLE 40 MG TABLET (FP) PO SCH ×2 (10:47→22:17)
[2016-10-22] MEDS: FINASTERIDE 5 MG TABLET (FP) PO SCH (10:47)
[2016-10-22] MEDS: PARoxetine HCL 10 MG TABLET (FP) PO SCH (10:48)
[2016-10-22] MEDS: POLYETHYLENE GLYCOL 3350 119 GM BTL PO SCH ×2 (10:48→22:17)
--- NOTE | 2016-10-22 14:18 | PATH ---
Surgical Pathology Report Patient Name: DANYA VERDUZCO [facility]. Rec. #: [id number] /Age/Gender: 1945 (Age: 71) / M Account: [id number] Location: [address] [place] [address] Taken: 10/21/2016 Received: 10/21/2016 Reported: 10/22/2016 Physicians: Polina Choudhary M.D. Prakashchandra Rao, M.D. Specimen(s) Received A: BX DUODENUM B: BX ANTRUM C: POLYP HEPATIC FLEXURE D: POLYP SESSITE POLYPS PROXIMAL TRANSVERSE E: POLYP RIGHT COLON F: POLYP RECTUM Clinical History Rectal bleeding Gastritis, colon polyps Final Diagnosis A. DUODENUM, SECOND PORTION AND BULB, BIOPSY: NONSPECIFIC CHRONIC DUODENITIS WITH FOLLICULAR HYPERPLASIA OF [place] ASSOCIATED LYMPHOID TISSUE. NO HISTOLOGIC EVIDENCE OF GLUTEN SENSITIVE ENTEROPATHY (CELIAC SPRUE) IDENTIFIED. B. STOMACH, ANTRUM, BIOPSY: MODERATE CHRONIC ACTIVE GASTRITIS. IMMUNOSTAIN FOR H. PYLORI IS NEGATIVE. C. 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 D. COLON, PROXIMAL TRANSVERSE, BIOPSY: TUBULAR ADENOMA. E. COLON, RIGHT, BIOPSY: TUBULAR ADENOMA. F. COLON, RECTUM, BIOPSY: TUBULAR ADENOMA. Comment: This case was discussed with Dr. Villatoro on October 22, 2016. Mismatch repair protein analysis by immunohistochemistry is pending on specimen C, and a report will follow. Electronically Signed Edwin Mcqueen M.D. Addendum Reported: 10/26/2016 Addendum Diagnosis Part C: DNA Mismatch Repair (MMR) protein expression analysis by IHC [facility] [place] ([id number] on block C1 and interpreted [facility] shows the following: Results: hMLH-1 DNA Mismatch Repair Protein: Intact nuclear expression hMSH-2 DNA Mismatch Repair Protein: Intact nuclear expression hMSH-6 DNA Mismatch Repair Protein: Intact nuclear expression PMS2 DNA Mismatch Repair Protein: Intact nuclear expression Interpretation: No defect in DNA Mismatch Repair (MMR) protein expression is identified by IHC. This result is usually seen in MSI-H stable tumors and is not associated with HNPCC (Ruth syndrome). Moses Harjit, M.D. Gross Description A. Received in formalin, labeled "biopsy duodenum second portion and bulb" are 3 simon, irregular portions of soft tissue averaging 0.3 cm. in greatest dimension. The specimens are submitted in toto in one cassette. B. Received in formalin, labeled "biopsy antrum" are 2 simon, irregular portions of soft tissue measuring 0.2 and 0.3 cm. in greatest dimension. The specimens are submitted in toto in one cassette. C. Received in formalin, labeled "polyp hepatic flexure" are 7 simon, irregular portions of soft tissue ranging from 0.1-0.3 cm. in greatest dimension. The specimens are submitted in toto in one cassette. D. Received in formalin, labeled "biopsy sessile polyps proximal transverse" are 7 simon, irregular portions of soft tissue ranging from 0.1-0.4 cm. in greatest dimension. The specimens are submitted in toto in one cassette. E. Received in formalin, labeled "polyp right colon" is a simon, irregular portion of soft tissue measuring 0.2 cm. in greatest dimension. The specimen is submitted in toto in one cassette. F. Received in formalin, labeled "polyp rectum" are 3 simon, irregular portions of soft tissue ranging from 0.1-0.4 cm. in greatest dimension. The specimens are submitted in toto in one cassette. 10/21/2016 saudi10/21/2016
--- NOTE | 2016-10-22 15:20 | PN ---
Progress Note, Physician - Current Medication List Current Medications: Active Medications Acetaminophen (Tylenol -) 650 mg PO Q4H PRN PRN Reason: FEVER OR PAIN Last Admin: 10/19/16 20:54 Dose: 650 mg Allopurinol (Zyloprim -) 100 mg PO DAILY ON LICENSE OF [facility] Last Admin: 10/22/16 10:47 Dose: 100 mg Aspirin (Asa -) 81 mg PO DAILY ON LICENSE OF [facility] Last Admin: 10/22/16 10:23 Dose: Not Given Atorvastatin Calcium (Lipitor -) 40 mg PO HS ON LICENSE OF [facility] Last Admin: 10/21/16 22:02 Dose: 40 mg Finasteride (Proscar -) 5 mg PO DAILY ON LICENSE OF [facility] Last Admin: 10/22/16 10:47 Dose: 5 mg Glyburide (Diabeta -) 2.5 mg PO DAILY@0700 ON [facility] OF [facility] Last Admin: 10/22/16 06:27 Dose: 2.5 mg Dextrose/Sodium Chloride (D5-1/2ns -) 1,000 mls @ 125 mls/hr IV ASDIR ON LICENSE OF [facility] Last Admin: 10/21/16 22:02 Dose: Not Given Levothyroxine Sodium (Synthroid -) 25 mcg PO DAILY@0700 ON [facility] Last Admin: 10/22/16 06:27 Dose: 25 mcg Losartan Potassium (Cozaar -) 25 mg PO DAILY ON [facility] Last Admin: 10/22/16 10:47 Dose: 25 mg Metformin HCl (Glucophage -) 500 mg PO DAILY@0700 ON [facility] Last Admin: 10/22/16 06:23 Dose: Not Given Ondansetron HCl (Zofran -) 4 mg PO Q8H PRN PRN Reason: NAUSEA AND/OR VOMITING Last Admin: 10/19/16 20:55 Dose: 4 mg Pantoprazole Sodium (Protonix -) 40 mg PO BID ON [facility] Last Admin: 10/22/16 10:47 Dose: 40 mg Paroxetine HCl (Paxil -) 10 mg PO DAILY ON [facility] Last Admin: 10/22/16 10:48 Dose: 10 mg Polyethylene Glycol (Miralax (For Daily Use) -) 17 gm PO BID ON [facility] Last Admin: 10/22/16 10:48 Dose: Not Given Sotalol HCl (Betapace -) 80 mg PO BID ON [facility] Last Admin: 10/22/16 10:47 Dose: 80 mg Tamsulosin HCl (Flomax -) 0.4 mg PO DAILY@0830 ON LICENSE [facility] Last Admin: 10/22/16 08:07 Dose: 0.4 mg - Objective Vital Signs: Vital Signs Temperature 98.1 F 10/22/16 10:00 Pulse Rate 56 L 10/22/16 10:00 Respiratory Rate 20 10/22/16 10:00 Blood Pressure 122/78 10/22/16 10:00 O2 Sat by Pulse Oximetry (%) 97 10/22/16 10:00 Labs: CBC, BMP 10/22/16 06:00 10/22/16 06:00 INR, PTT INR 1.08 (0.82-1.09) 10/19/16 05:35 Problem List - Problems (1) Colonic mass Code(s): K63.9 - DISEASE OF INTESTINE, UNSPECIFIED (2) Anemia associated with acute blood loss Code(s): D62 - ACUTE POSTHEMORRHAGIC ANEMIA (3) Obesity Code(s): E66.9 - OBESITY, UNSPECIFIED Qualifiers: Obesity type: due to excess calories Obesity severity: morbid Qualified Code(s): E66.01 - Morbid (severe) obesity due to excess calories (4) Coronary artery disease Code(s): I25.10 - ATHSCL HEART DISEASE OF [place] CORONARY ARTERY W/O ANG PCTRS Qualifiers: Coronary Disease-Associated Artery/Lesion type: [place] artery [place] vs. transplanted heart: [place] heart Associated angina: without angina Qualified Code(s): I25.10 - Atherosclerotic heart disease of [place] coronary artery without angina pectoris (5) Hypertension Code(s): I10 - ESSENTIAL (PRIMARY) HYPERTENSION Qualifiers: Hypertension type: essential hypertension Qualified Code(s): I10 - Essential (primary) hypertension (6) Thrombocytopenia Code(s): D69.6 - THROMBOCYTOPENIA, UNSPECIFIED Assessment/Plan Mri of abdomen suggests, splenomegaly and enlarged, caudate lobe to right lobe ratio. Suggestive of " advanced hepatocellular disease, wuth fatty infiltration. This might explain his thrombocytopenia, in addition to aspirin intake, He is scheduled for surgery on Wednesday at 8.00 a.m., for ? lesions around the hepatic flexure of the transverse colon.
[2016-10-22] MEDS ORDERED: BACITRACIN 0.9 GM PACKET TP SCH (22:00)
[2016-10-22] MEDS: BACITRACIN 30 GM TUBE TOPICAL OINTMENT TP SCH (22:16)
[2016-10-22] MEDS: ATORVASTATIN CA 40 MG TABLET (FP) PO SCH (22:17)
[2016-10-23] MEDS: DEXTROSE 5%-0.45% SALINE 1,000 ML IV SCH (06:46)
[2016-10-23] MEDS: LEVOTHYROXINE NA 25 MCG TABLET (FP) PO SCH (06:50)
[2016-10-23] MEDS: metFORMIN HCL 500 MG TABLET (FP) PO SCH (06:50)
[2016-10-23] MEDS: glyBURIDE 2.5 MG TABLET (FP) PO SCH (06:50)
[2016-10-23 07:45] LABS: ALBUMIN 3.4 g/dl (3.4-5.0); CALCIUM 8.8 mg/dL (8.5-10.1); CREATININE 1.2 mg/dL (0.7-1.3)
[2016-10-23 07:49] LABS: BILIRUBIN,TOTAL 0.5 mg/dL (0.2-1.0); TOT PROT 6.2 g/dl (6.4-8.2)
--- NOTE | 2016-10-23 09:15 | PN ---
Progress Note, Physician Chief Complaint: Feels OK History of Present Illness: Diagnosed to have Ca colon ,case discussed with Dr Rubi CT of abdomen showed sleenomegally - Current Medication List Current Medications: Active Medications Acetaminophen (Tylenol -) 650 mg PO Q4H PRN PRN Reason: FEVER OR PAIN Last Admin: 10/19/16 20:54 Dose: 650 mg Allopurinol (Zyloprim -) 100 mg PO DAILY [facility] Last Admin: 10/22/16 10:47 Dose: 100 mg Atorvastatin Calcium (Lipitor -) 40 mg PO HS [facility] Last Admin: 10/22/16 22:17 Dose: 40 mg Bacitracin (Bacitracin -) 1 applic TP BID [facility] Last Admin: 10/22/16 22:16 Dose: 1 applic Finasteride (Proscar -) 5 mg PO DAILY [facility] Last Admin: 10/22/16 10:47 Dose: 5 mg Glyburide (Diabeta -) 2.5 mg PO DAILY@0700 [facility] Last Admin: 10/23/16 06:50 Dose: 2.5 mg Dextrose/Sodium Chloride (D5-1/2ns -) 1,000 mls @ 125 mls/hr IV ASDIR [facility] Last Admin: 10/23/16 06:46 Dose: 125 mls/hr Levothyroxine Sodium (Synthroid -) 25 mcg PO DAILY@0700 [facility] Last Admin: 10/23/16 06:50 Dose: 25 mcg Losartan Potassium (Cozaar -) 25 mg PO DAILY [facility] Last Admin: 10/22/16 10:47 Dose: 25 mg Metformin HCl (Glucophage -) 500 mg PO DAILY@0700 [facility] Last Admin: 10/23/16 06:50 Dose: Not Given Ondansetron HCl (Zofran -) 4 mg PO Q8H PRN PRN Reason: NAUSEA AND/OR VOMITING Last Admin: 10/19/16 20:55 Dose: 4 mg Pantoprazole Sodium (Protonix -) 40 mg PO BID [facility] Last Admin: 10/22/16 22:17 Dose: 40 mg Paroxetine HCl (Paxil -) 10 mg PO DAILY [facility] Last Admin: 10/22/16 10:48 Dose: 10 mg Polyethylene Glycol (Miralax (For Daily Use) -) 17 gm PO BID [facility] Last Admin: 10/22/16 22:17 Dose: Not Given Sotalol HCl (Betapace -) 80 mg PO BID [facility] Last Admin: 10/22/16 22:17 Dose: 80 mg Tamsulosin HCl (Flomax -) 0.4 mg PO DAILY@0830 [facility] Last Admin: 10/22/16 08:07 Dose: 0.4 mg - Objective Vital Signs: Vital Signs Temperature 97.7 F 10/23/16 05:55 Pulse Rate 52 L 10/23/16 05:55 Respiratory Rate 20 10/23/16 05:55 Blood Pressure 146/72 10/23/16 05:55 O2 Sat by Pulse Oximetry (%) 99 10/22/16 21:00 Constitutional: Yes: No Distress Eyes: Yes: WNL HENT: Yes: WNL Neck: Yes: WNL Respiratory: Yes: WNL Gastrointestinal: Yes: Normal Bowel Sounds Genitourinary: Yes: WNL Labs: CBC, BMP 10/22/16 06:00 10/23/16 05:35 INR, PTT INR 1.08 (0.82-1.09) 10/19/16 05:35 Assessment/Plan Oncology consult Dr Stiles
[2016-10-23] MEDS: TAMSULOSIN HCL 0.4 MG CAP.ER.24H (FP) PO SCH (09:36)
[2016-10-23] MEDS: LOSARTAN POTASSIUM 25 MG TABLET PO SCH (09:36)
[2016-10-23] MEDS: BACITRACIN 30 GM TUBE TOPICAL OINTMENT TP SCH ×2 (09:36→21:49)
[2016-10-23] MEDS: SOTALOL HCL 80 MG TABLET (FP) PO SCH ×2 (09:36→21:48)
[2016-10-23] MEDS: PANTOPRAZOLE 40 MG TABLET (FP) PO SCH ×2 (09:37→21:48)
[2016-10-23] MEDS: FINASTERIDE 5 MG TABLET (FP) PO SCH (09:37)
[2016-10-23] MEDS: ALLOPURINOL 100 MG TABLET (FP) PO SCH (09:37)
[2016-10-23] MEDS: POLYETHYLENE GLYCOL 3350 119 GM BTL PO SCH ×2 (09:39→21:48)
[2016-10-23] MEDS: PARoxetine HCL 10 MG TABLET (FP) PO SCH (09:39)
--- NOTE | 2016-10-23 09:55 | PN ---
Progress Note, Physician - Current Medication List Current Medications: Active Medications Acetaminophen (Tylenol -) 650 mg PO Q4H PRN PRN Reason: FEVER OR PAIN Last Admin: 10/19/16 20:54 Dose: 650 mg Allopurinol (Zyloprim -) [address] [facility] Last Admin: 10/23/16 09:37 Dose: 100 mg Atorvastatin Calcium (Lipitor -) [address] [facility] Last Admin: 10/22/16 22:17 Dose: 40 mg Bacitracin (Bacitracin -) [address] [facility] Last Admin: 10/23/16 09:36 Dose: 1 applic Finasteride (Proscar -) [address] [facility] Last Admin: 10/23/16 09:37 Dose: 5 mg Glyburide (Diabeta -) 2.5 mg PO DAILY@0700 [facility] Last Admin: 10/23/16 06:50 Dose: 2.5 mg Levothyroxine Sodium (Synthroid -) 25 mcg PO DAILY@0700 [facility] Last Admin: 10/23/16 06:50 Dose: 25 mcg Losartan Potassium (Cozaar -) [address] [facility] Last Admin: 10/23/16 09:36 Dose: 25 mg Metformin HCl (Glucophage -) 500 mg PO DAILY@0700 [facility] Last Admin: 10/23/16 06:50 Dose: Not Given Ondansetron HCl (Zofran -) 4 mg PO Q8H PRN PRN Reason: NAUSEA AND/OR VOMITING Last Admin: 10/19/16 20:55 Dose: 4 mg Pantoprazole Sodium (Protonix -) [address] [facility] Last Admin: 10/23/16 09:37 Dose: 40 mg Paroxetine HCl (Paxil -) [address] [facility] Last Admin: 10/23/16 09:39 Dose: 10 mg Polyethylene Glycol (Miralax (For Daily Use) -) [address] [facility] Last Admin: 10/23/16 09:39 Dose: Not Given Sotalol HCl (Betapace -) [address] [facility] Last Admin: 10/23/16 09:36 Dose: 80 mg Tamsulosin HCl (Flomax -) 0.4 mg PO DAILY@0830 [facility] Last Admin: 10/23/16 09:36 Dose: 0.4 mg - Objective Vital Signs: Vital Signs Temperature 97.7 F 10/23/16 05:55 Pulse Rate 52 L 10/23/16 05:55 Respiratory Rate 20 10/23/16 05:55 Blood Pressure 146/72 10/23/16 05:55 O2 Sat by Pulse Oximetry (%) 99 10/22/16 21:00 Labs: CBC, BMP 10/22/16 06:00 10/23/16 05:35 INR, PTT INR 1.08 (0.82-1.09) 10/19/16 05:35 Problem List - Problems (1) Colonic mass Code(s): K63.9 - DISEASE OF INTESTINE, UNSPECIFIED (2) Anemia associated with acute blood loss Code(s): D62 - ACUTE POSTHEMORRHAGIC ANEMIA (3) Obesity Code(s): E66.9 - OBESITY, UNSPECIFIED Qualifiers: Obesity type: due to excess calories Obesity severity: morbid Qualified Code(s): E66.01 - Morbid (severe) obesity due to excess calories (4) Coronary artery disease Code(s): I25.10 - ATHSCL HEART DISEASE OF [place] CORONARY ARTERY W/O ANG PCTRS Qualifiers: Coronary Disease-Associated Artery/Lesion type: [place] artery [place] vs. transplanted heart: [place] heart Associated angina: without angina Qualified Code(s): I25.10 - Atherosclerotic heart disease of [place] coronary artery without angina pectoris (5) Hypertension Code(s): I10 - ESSENTIAL (PRIMARY) HYPERTENSION Qualifiers: Hypertension type: essential hypertension Qualified Code(s): I10 - Essential (primary) hypertension (6) Thrombocytopenia Code(s): D69.6 - THROMBOCYTOPENIA, UNSPECIFIED Assessment/Plan Surgery: No further g.i. bleeding. He has no abdominal pain. He is scheduled for colectomy on Wednesday. Underhoing preperation for the same. He is thrombocytopenic with splenomegaly, and an enlarged liver. ? Etiology. I have explained the risks of surgery, with concerns for bleeding, if he has underlying liver disease, portal hypertension , hematological disorder. Concerns of laparoscopic surgery , with inflation of the abdpmen , to venous return , pulmonary hypertension also discussed. I have explained complications related to obesity, including, pulmonary, thromboembolism. poor wound healing, and onfection has been explained. His daughter was with him during the disscussion. Will resume bowel prep on 10/26/2016.
--- NOTE | 2016-10-23 10:23 | PN ---
Progress Note (short form) - Note Progress Note: S: 71 year old male, known case of coronary artery disease, s/p PCI/stenting, s/ p CABG, angina pectoris, left ventricular diastolic dysfunction, paroxysmal atrial fibrillation, s/p cryo-maze procedure, hypertension, NID diabetes mellitus, hypercholesterolemia, hypothyroidism. History of GERD. Patient was admitted with recurrent rectal bleeding. There is no further episode of syncope. Denies having lightheadedness, dizziness. States that he has not had further rectal bleeding. 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 Active Medications Generic Name Dose Route Start Last Admin Trade Name Freq PRN Reason Stop Dose Admin Acetaminophen 650 mg 10/19/16 20:33 10/19/16 20:54 Tylenol - PO 650 mg Q4H PRN Administration FEVER OR PAIN Allopurinol 100 mg 10/19/16 10:00 10/20/16 09:49 Zyloprim - PO 100 mg DAILY [facility] Administration Aspirin 81 mg 10/19/16 10:00 10/20/16 09:49 Asa - PO 81 mg DAILY [facility] Administration Atorvastatin Calcium 40 mg 10/18/16 22:00 10/20/16 21:37 Lipitor - PO 40 mg HS [facility] Administration Finasteride 5 mg 10/19/16 10:00 10/20/16 09:49 Proscar - PO 5 mg DAILY [facility] Administration Glyburide 2.5 mg 10/19/16 07:00 10/21/16 06:00 Diabeta - PO Not Given DAILY@0700 [facility] Levothyroxine Sodium 25 mcg 10/19/16 07:00 10/21/16 06:00 Synthroid - PO Not Given DAILY@0700 [facility] Losartan Potassium 25 mg 10/19/16 11:20 10/20/16 09:49 Cozaar - PO 25 mg DAILY [facility] Administration Metformin HCl 500 mg 10/19/16 07:00 10/21/16 06:00 Glucophage - PO Not Given DAILY@0700 [facility] Ondansetron HCl 4 mg 10/19/16 20:34 10/19/16 20:55 Zofran - PO 4 mg Q8H PRN Administration NAUSEA AND/OR VOMITING Pantoprazole Sodium 40 mg 10/19/16 22:00 10/20/16 21:37 Protonix - PO 40 mg BID [facility] Administration Paroxetine HCl 10 mg 10/19/16 20:45 10/20/16 09:49 Paxil - PO 10 mg DAILY [facility] Administration Polyethylene Glycol 17 gm 10/19/16 12:30 10/20/16 21:38 Miralax (For Daily Use) - PO 17 gm BID [facility] Administration Sotalol HCl 80 mg 10/18/16 22:00 10/20/16 21:37 Betapace - PO 80 mg BID [facility] Administration Tamsulosin HCl 0.4 mg 10/19/16 08:30 10/20/16 09:49 Flomax - PO 0.4 mg DAILY@0830 [facility] Administration O: 71 year old male was in no acute distress, no pallor, cyanosis, clubbing, or jaundice. Last Vital Signs Temp Pulse Resp BP Pulse Ox 98.2 F 58 L 18 137/77 98 10/21/16 06:00 10/21/16 10:00 10/21/16 10:00 10/21/16 10:00 10/21/16 10:00 Neck: Supple, no JVD, negative HJR, carotids were equal and upstrokes were normal, no thyromegaly appreciated. Heart: PMI was in the 5th intercostal space, no heaves or thrills, S1 and S2 were normal. No murmurs or gallops were appreciated. Lungs: Clear on auscultation bilaterally. Abdomen: Soft, nontender, no hepatosplenomegaly appreciated, and no palpable masses were felt. Extremities: No calf tenderness or dependent edema. Pulses are normal. CBC, BMP 10/20/16 14:45 10/20/16 05:35 Laboratory Results - last 24 hr 10/20/16 10/21/16 14:45 05:49 WBC 7.0 RBC 4.30 Hgb 9.5 L Hct 30.1 L MCV 70.0 L MCHC 31.7 L RDW 16.4 H Plt Count 132 L MPV 8.5 POC Glucometer 157 Impression: (1) Coronary artery disease, s/p PCI/stenting s/p CABG, angina pectoris Code(s): I25.10 - ATHSCL HEART DISEASE OF [place] CORONARY ARTERY W/O ANG PCTRS Qualifiers: Coronary Disease-Associated Artery/Lesion type: [place] artery [place] vs. transplanted heart: [place] heart Associated angina: without angina Qualified Code(s): I25.10 - Atherosclerotic heart disease of [place] coronary artery without angina pectoris (2) Syncope, most likely related to acute blood loss Code(s): R55 - SYNCOPE Qualifiers: Syncope type: vasovagal syncope Qualified Code(s): R55 - Syncope (3) Anemia associated with acute blood loss Code(s): D62 - ACUTE POSTHEMORRHAGIC ANEMIA (4) Chest pain syndrome, possibly related to angina pectoris, ppt by acute blood loss Code(s): R07.89 - OTHER CHEST PAIN (5) Diabetes mellitus Code(s): E11.9 - TYPE 2 DIABETES MELLITUS WITHOUT COMPLICATIONS Qualifiers: Diabetes mellitus type: type 2 (6) History of Diastolic dysfunction Code(s): I51.9 - HEART DISEASE, UNSPECIFIED (7) Hyperlipidemia Code(s): E78.5 - HYPERLIPIDEMIA, UNSPECIFIED Qualifiers: Hyperlipidemia type: pure hypercholesterolemia Qualified Code(s): E78.0 - Pure hypercholesterolemia (8) Hypertension Code(s): I10 - ESSENTIAL (PRIMARY) HYPERTENSION Qualifiers: Hypertension type: essential hypertension Qualified Code(s): I10 - Essential (primary) hypertension (9) Hypothyroidism Code(s): E03.9 - HYPOTHYROIDISM, UNSPECIFIED Qualifiers: Hypothyroidism type: unspecified Qualified Code(s): E03.9 - Hypothyroidism, unspecified (10) Paroxysmal atrial fibrillation Code(s): I48.0 - PAROXYSMAL ATRIAL FIBRILLATION (11) S/P Maze operation for atrial fibrillation Code(s): Z98.89 - OTHER SPECIFIED POSTPROCEDURAL STATES * DO NOT USE * Z86.79 - PERSONAL HISTORY OF OTHER DISEASES OF THE CIRCULATORY SYSTEM Recommendations: 1. Continue current cardiac therapy. 2. Maintain hematocrit 30 and above. 3. Risk modifications were discussed. 4. Follow up with primary bank credit card collection clerk. Prognosis: Guarded Attestation: Documentation prepared by Jonatan Osuna, acting as medical nurse for Leoncio Agee MD.
--- NOTE | 2016-10-23 13:24 | PN ---
GI Progress Note Subjective: GI NOte: I have informed Antoine and his daughter ( I spoke with the son yesterday) that the biopsies confirm colon cancer and that his CT and CEA argue against advanced disease. I also explained that his CT suggests that he has a chronic liver disease with possible cirrhosis. He denies any significant alcohol intake but tells me that at one time he weighed over 300 lbs and that bariatric surgery was being considered. I told him that he most likely has LOZANO. I answered all of his daughter's and grandaughter's questions. - Objective Vital Signs: Vital Signs Temperature 97.7 F 10/23/16 05:55 Pulse Rate 52 L 10/23/16 05:55 Respiratory Rate 20 10/23/16 05:55 Blood Pressure 146/72 10/23/16 05:55 O2 Sat by Pulse Oximetry (%) 100 10/23/16 09:00 Constitutional: Calm ...Auscultate: Yes: Normoactive Bowel Sounds ...Palpate: Yes: Soft, Other (nontender) Labs: CBC, BMP 10/22/16 06:00 10/23/16 05:35 INR, PTT INR 1.08 (0.82-1.09) 10/19/16 05:35 Laboratory Tests 10/22/16 10/22/16 10/23/16 06:00 06:00 05:35 Hgb 9.2 L MCV 70.6 L Plt Count 124 L Total Bilirubin 0.5 D AST 14 L D ALT 22 D Alkaline Phosphatase 51 Albumin 3.4 Carcinoembryonic Ag 2.0 Assessment/Plan 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 I discussed the colonoscopic findings and tattoos with Dr Rubi to assure that all the residual right half of the colon polyps be removed. I also asked him to do a liver biopsy. Fortunately despite the evident cirrhosis it does appear to be still relatively well compensated. I will order an AFP however as hepatocellular carcinoma screening. Problem List - Problems (1) Anemia associated with acute blood loss Code(s): D62 - ACUTE POSTHEMORRHAGIC ANEMIA (2) Abdominal pain Code(s): R10.9 - UNSPECIFIED ABDOMINAL PAIN (3) Gout Code(s): M10.9 - GOUT, UNSPECIFIED
--- NOTE | 2016-10-23 17:21 | CONSULT ---
Consult Consult Specialty:: Oncology Referred by:: Dr. Aragon Reason for Consultation:: Colon Ca - History Source History Provided By: Patient, Medical Record Limitations to Obtaining History: No Limitations - Past Medical History Cardio/Vascular: Yes: AFIB (paroxysmal with 2 cardioversions. Has wireless rhythm transmitter), CAD (stents 2012, CABG 2014), CHF (EF 47% on 2014 echo), HTN, Hyperlipdemia Pulmonary: Yes: Sleep Apnea (does not prescribed use CPAP machine) Gastrointestinal: Yes: GERD Hepatobiliary: Yes: Cirrhosis Renal/: Yes: BPH, Renal Calculi (required cystoscopic extraction) Heme/Onc: Yes: Thrombocytopenia Psych: Yes: Anxiety Rheumatology: Yes: Gout Endocrine: Yes: Diabetes Mellitus, Hypothyroidism - Past Surgical History Past Surgical History: Yes: CABG, Colonoscopy, Hernia Repair (right inguinal), Stent, Tonsillectomy - Alcohol/Substance Use Hx Alcohol Use: Yes (occasional wine) History of Substance Use: reports: None - Smoking History Smoking history: Former smoker (quit as teenager) Have you smoked in the past 12 months: No - Social History Usual Living Arrangement: With Spouse ADL: Independent 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 [employer] of : Other ([email or web address]) History of Recent Travel: No Home Medications - Allergies Allergies/Adverse Reactions: Allergies Allergy/AdvReac Type Severity Reaction Status Date / Time No Known Drug Allergies Allergy Verified 10/18/16 05:36 - Home Medications Home Medications: Ambulatory Orders Glyburide/Metformin HCl [Glyburide-Metformin 5-500 mg] 2.5 each PO HS 09/23/13 Atorvastatin Ca [Lipitor] 20 mg PO HS #0 tablet 09/26/13 Allopurinol [Zyloprim -] 100 mg PO DAILY 06/03/14 Finasteride 5 mg PO DAILY 06/28/15 Tamsulosin HCl 0.4 mg PO DAILY 06/28/15 Levothyroxine [Synthroid -] 25 mcg PO DAILY 04/06/16 Ranitidine [Zantac -] 150 mg PO BID 04/06/16 Sotalol HCl [Betapace -] 80 mg PO BID 04/06/16 Aspirin [ASA -] 81 mg PO DAILY 10/18/16 Glipizide [Glipizide ER] 2.5 mg PO DAILY 10/18/16 Losartan Potassium [Cozaar] 25 mg PO DAILY 10/18/16 Paroxetine HCl 10 mg PO DAILY 10/18/16 Family Disease History - Family Disease History Family Disease History: Diabetes: Brother, Heart Disease: Brother, Other: Father (lived to 93), Mother (liverd ot 88) Other Family History: No family history of carcinoma Review of Systems - Review of Systems Constitutional: denies: Fever, Night Sweats, Unintentional Wgt. Loss, Weakness Eyes: denies: Photophobia HENT: denies: Difficult Swallowing, Epistaxis, Throat Pain Neck: denies: Stiffness, Swollen Glands, Tenderness Cardiovascular: denies: Palpitations Respiratory: denies: SOB, SOB on Exertion Gastrointestinal: reports: Diarrhea, Rectal Bleeding Genitourinary: reports: Other (nocturia x 2). denies: Burning, Dysuria, Frequency Musculoskeletal: denies: Back Pain, Decreased ROM Integumentary: denies: Blister, Bruising, Erythema Neurological: reports: No Symptoms Endocrine: reports: No Symptoms Hematology/Lymphatic: denies: Swollen Glands Psychiatric: reports: No Symptoms Physical Exam Vital Signs: Vital Signs Temperature 98.2 F 10/23/16 16:20 Pulse Rate 57 L 10/23/16 16:20 Respiratory Rate 22 10/23/16 16:20 Blood Pressure 144/68 10/23/16 16:20 O2 Sat by Pulse Oximetry (%) 100 10/23/16 09:00 Constitutional: Yes: No Distress Eyes: Yes: PERRL. No: Ptosis, Sclera Icterus HENT: Yes: Normocephalic. No: Epistaxis, Hoarseness, Tonsillar Exudate Neck: Yes: Supple. No: Lymphadenopathy, Tenderness, Thyromegaly Cardiovascular: Yes: Regular Rate and Rhythm Respiratory: Yes: Regular, Accessory Muscle Use Gastrointestinal: Yes: Normal Bowel Sounds, Distention, Rectal Bleeding. No: Hepatomegaly, Splenomegaly, Tenderness Renal/: No: CVA Tenderness - Left, CVA Tenderness - Right Musculoskeletal: No: Back Pain, Joint Swelling, Muscle Pain Extremities: No: Calf Tenderness, Cyanosis Integumentary: No: Bruising, Erythema, Jaundice, Petechiae Neurological: Yes: WNL ...Motor Strength: WNL Psychiatric: Yes: WNL Labs: CBC, BMP 10/22/16 06:00 10/23/16 05:35 Imaging - Results X-ray: Report Reviewed, Image Reviewed Cat Scan: Report Reviewed, Image Reviewed Problem List - Problems (1) Colonic mass Assessment/Plan: 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 Will need surgery. CT with picture compatible with hepatocellular disease and splenomegaly. No obvious mets. Will need to complete staging with CT of chest. CEA baseline prior to surgery. Pathology will determine any adjuvant treatments which may be required. Code(s): K63.9 - DISEASE OF INTESTINE, UNSPECIFIED (2) Thrombocytopenia Assessment/Plan: Ct with hepatocellular disease and fatty liver . Also with splenomegaly, likely secondary to liver disease. 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 Current platelet count is adequate for surgery. (124K) Code(s): D69.6 - THROMBOCYTOPENIA, UNSPECIFIED (3) Rectal bleed Assessment/Plan: ?? rectal polyp, ?? other site as source. Code(s): K62.5 - HEMORRHAGE OF ANUS AND RECTUM
[2016-10-23] MEDS: ATORVASTATIN CA 40 MG TABLET (FP) PO SCH (21:48)
[2016-10-24] MEDS: LEVOTHYROXINE NA 25 MCG TABLET (FP) PO SCH (06:26)
[2016-10-24] MEDS: metFORMIN HCL 500 MG TABLET (FP) PO SCH (06:26)
[2016-10-24] MEDS: glyBURIDE 2.5 MG TABLET (FP) PO SCH ×2 (06:59→09:36)
[2016-10-24] MEDS: TAMSULOSIN HCL 0.4 MG CAP.ER.24H (FP) PO SCH (08:14)
[2016-10-24 09:04] LABS: ALBUMIN 3.5 g/dl (3.4-5.0); BILIRUBIN,DIRECT 0.2 mg/dL (0.0-0.2); BILIRUBIN,TOTAL 0.5 mg/dL (0.2-1.0); FERRITIN 7.363 ng/ml (16.4-293.9); TOT PROT 6.4 g/dl (6.4-8.2)
[2016-10-24] MEDS ORDERED: PT OWN MED DRAWER 7, Y5N ONE ×2 (09:19→16:33)
[2016-10-24] MEDS: BACITRACIN 30 GM TUBE TOPICAL OINTMENT TP SCH ×2 (09:35→21:58)
[2016-10-24] MEDS: LOSARTAN POTASSIUM 25 MG TABLET PO SCH (09:35)
[2016-10-24] MEDS: PANTOPRAZOLE 40 MG TABLET (FP) PO SCH ×2 (09:35→21:58)
[2016-10-24] MEDS: SOTALOL HCL 80 MG TABLET (FP) PO SCH ×2 (09:35→21:58)
[2016-10-24] MEDS: PARoxetine HCL 10 MG TABLET (FP) PO SCH (09:35)
[2016-10-24] MEDS: ALLOPURINOL 100 MG TABLET (FP) PO SCH (09:35)
[2016-10-24] MEDS: FINASTERIDE 5 MG TABLET (FP) PO SCH (09:35)
[2016-10-24] MEDS: POLYETHYLENE GLYCOL 3350 119 GM BTL PO SCH ×2 (09:35→21:57)
--- NOTE | 2016-10-24 12:23 | PN ---
Progress Note, Physician - Current Medication List Current Medications: Active Medications Acetaminophen (Tylenol -) 650 mg PO Q4H PRN PRN Reason: FEVER OR PAIN Last Admin: 10/19/16 20:54 Dose: 650 mg Allopurinol (Zyloprim -) 100 mg PO DAILY [facility] Last Admin: 10/24/16 09:35 Dose: 100 mg Atorvastatin Calcium (Lipitor -) 40 mg PO HS [facility] Last Admin: 10/23/16 21:48 Dose: 40 mg Bacitracin (Bacitracin -) 1 applic TP BID [facility] Last Admin: 10/24/16 09:35 Dose: 1 applic Finasteride (Proscar -) 5 mg PO DAILY [facility] Last Admin: 10/24/16 09:35 Dose: 5 mg Glyburide (Diabeta -) 2.5 mg PO DAILY@0700 [facility] Last Admin: 10/24/16 09:36 Dose: 2.5 mg Levothyroxine Sodium (Synthroid -) 25 mcg PO DAILY@0700 [facility] Last Admin: 10/24/16 06:26 Dose: 25 mcg Losartan Potassium (Cozaar -) 25 mg PO DAILY [facility] Last Admin: 10/24/16 09:35 Dose: 25 mg Metformin HCl (Glucophage -) 500 mg PO DAILY@0700 [facility] Last Admin: 10/24/16 06:26 Dose: Not Given Ondansetron HCl (Zofran -) 4 mg PO Q8H PRN PRN Reason: NAUSEA AND/OR VOMITING Last Admin: 10/19/16 20:55 Dose: 4 mg Pantoprazole Sodium (Protonix -) 40 mg PO BID [facility] Last Admin: 10/24/16 09:35 Dose: 40 mg Paroxetine HCl (Paxil -) 10 mg PO DAILY [facility] Last Admin: 10/24/16 09:35 Dose: 10 mg Polyethylene Glycol (Miralax (For Daily Use) -) 17 gm PO BID [facility] Last Admin: 10/24/16 09:35 Dose: Not Given Sotalol HCl (Betapace -) 80 mg PO BID [facility] Last Admin: 10/24/16 09:35 Dose: 80 mg Tamsulosin HCl (Flomax -) 0.4 mg PO DAILY@0830 [facility] Last Admin: 10/24/16 08:14 Dose: 0.4 mg - Objective Vital Signs: Vital Signs Temperature 98.5 F 10/24/16 06:00 Pulse Rate 60 10/24/16 06:00 Respiratory Rate 20 10/24/16 06:00 Blood Pressure 148/78 10/24/16 06:00 O2 Sat by Pulse Oximetry (%) 99 10/23/16 21:00 Constitutional: Yes: Anxious Eyes: Yes: WNL HENT: Yes: WNL, Tonsillar Exudate Cardiovascular: Yes: WNL Respiratory: Yes: Regular Gastrointestinal: Yes: Normal Bowel Sounds Breast(s): Yes: WNL Musculoskeletal: Yes: WNL Neurological: Yes: Alert ...Motor Strength: WNL Labs: CBC, BMP 10/22/16 06:00 10/23/16 05:35 INR, PTT INR 1.08 (0.82-1.09) 10/19/16 05:35
--- NOTE | 2016-10-24 12:25 | PN ---
Progress Note, Physician History of Present Illness: Dr Youngblood oncology consult appreciated Platelet - Current Medication List Current Medications: Active Medications Acetaminophen (Tylenol -) 650 mg PO Q4H PRN PRN Reason: FEVER OR PAIN Last Admin: 10/19/16 20:54 Dose: 650 mg Allopurinol (Zyloprim -) 100 mg PO DAILY [facility] Last Admin: 10/24/16 09:35 Dose: 100 mg Atorvastatin Calcium (Lipitor -) 40 mg PO HS [facility] Last Admin: 10/23/16 21:48 Dose: 40 mg Bacitracin (Bacitracin -) 1 applic TP BID [facility] Last Admin: 10/24/16 09:35 Dose: 1 applic Finasteride (Proscar -) 5 mg PO DAILY [facility] Last Admin: 10/24/16 09:35 Dose: 5 mg Glyburide (Diabeta -) 2.5 mg PO DAILY@0700 [facility] Last Admin: 10/24/16 09:36 Dose: 2.5 mg Levothyroxine Sodium (Synthroid -) 25 mcg PO DAILY@0700 [facility] Last Admin: 10/24/16 06:26 Dose: 25 mcg Losartan Potassium (Cozaar -) 25 mg PO DAILY [facility] Last Admin: 10/24/16 09:35 Dose: 25 mg Metformin HCl (Glucophage -) 500 mg PO DAILY@0700 [facility] Last Admin: 10/24/16 06:26 Dose: Not Given Ondansetron HCl (Zofran -) 4 mg PO Q8H PRN PRN Reason: NAUSEA AND/OR VOMITING Last Admin: 10/19/16 20:55 Dose: 4 mg Pantoprazole Sodium (Protonix -) 40 mg PO BID [facility] Last Admin: 10/24/16 09:35 Dose: 40 mg Paroxetine HCl (Paxil -) 10 mg PO DAILY [facility] Last Admin: 10/24/16 09:35 Dose: 10 mg Polyethylene Glycol (Miralax (For Daily Use) -) 17 gm PO BID [facility] Last Admin: 10/24/16 09:35 Dose: Not Given Sotalol HCl (Betapace -) 80 mg PO BID [facility] Last Admin: 10/24/16 09:35 Dose: 80 mg Tamsulosin HCl (Flomax -) 0.4 mg PO DAILY@0830 [facility] Last Admin: 10/24/16 08:14 Dose: 0.4 mg - Objective Vital Signs: Vital Signs Temperature 98.5 F 10/24/16 06:00 Pulse Rate 60 10/24/16 06:00 Respiratory Rate 20 10/24/16 06:00 Blood Pressure 148/78 10/24/16 06:00 O2 Sat by Pulse Oximetry (%) 99 10/23/16 21:00 Labs: CBC, BMP 10/22/16 06:00 10/23/16 05:35 INR, PTT INR 1.08 (0.82-1.09) 10/19/16 05:35
--- NOTE | 2016-10-24 13:42 | PN ---
Progress Note (short form) - Note Progress Note: Chief Complaint: Events noted, notes reviewed, denies any chest pain or dyspnea History of Present Illness: Seen and examined on telemetry. Events noted, notes reviewed, denies any chest pain or dyspnea Results of colonoscopy noted, adenocarcinoma for staging Medications: Current Medications Acetaminophen (Tylenol -) 650 mg PO Q4H PRN PRN Reason: FEVER OR PAIN Last Admin: 10/19/16 20:54 Dose: 650 mg Allopurinol (Zyloprim -) 100 mg PO DAILY [facility]S [facility] Last Admin: 10/24/16 09:35 Dose: 100 mg Atorvastatin Calcium (Lipitor -) 40 mg PO HS [facility] 234 B[facility]S AT [facility] Last Admin: 10/23/16 21:48 Dose: 40 mg Bacitracin (Bacitracin -) 1 applic TP BID [facility] 234 [facility]S [facility] Last Admin: 10/24/16 09:35 Dose: 1 applic Finasteride (Proscar -) 5 mg PO DAILY [facility] 234 [facility]S [facility] Last Admin: 10/24/16 09:35 Dose: 5 mg Glyburide (Diabeta -) 2.5 mg PO DAILY@0700 [facility] 234 B[facility]S [facility] Last Admin: 10/24/16 09:36 Dose: 2.5 mg Levothyroxine Sodium (Synthroid -) 25 mcg PO DAILY@0700 [facility] 234 B[facility]S [facility] Last Admin: 10/24/16 06:26 Dose: 25 mcg Losartan Potassium (Cozaar -) 25 mg PO DAILY [facility] 234 B[facility]S AT [facility] Last Admin: 10/24/16 09:35 Dose: 25 mg Metformin HCl (Glucophage -) 500 mg PO DAILY@0700 [facility] 234 B[facility]S [facility] Last Admin: 10/24/16 06:26 Dose: Not Given Ondansetron HCl (Zofran -) 4 mg PO Q8H PRN PRN Reason: NAUSEA AND/OR VOMITING Last Admin: 10/19/16 20:55 Dose: 4 mg Pantoprazole Sodium (Protonix -) 40 mg PO BID [facility] 234 [facility]S [facility] Last Admin: 10/24/16 09:35 Dose: 40 mg Paroxetine HCl (Paxil -) 10 mg PO DAILY [facility] 234 B[facility]S AT [facility] Last Admin: 10/24/16 09:35 Dose: 10 mg Polyethylene Glycol (Miralax (For Daily Use) -) 17 gm PO BID [facility] 234 [facility]S [facility] Last Admin: 10/24/16 09:35 Dose: Not Given Sotalol HCl (Betapace -) 80 mg PO BID [facility] 234 [facility]S [facility] Last Admin: 10/24/16 09:35 Dose: 80 mg Tamsulosin HCl (Flomax -) 0.4 mg PO DAILY@0830 [facility] 234 [facility]S [facility] Last Admin: 10/24/16 08:14 Dose: 0.4 mg Review of Systems - Review of Systems Constitutional: no symptoms reported Respiratory: denies Cough or Sputum Production Cardiovascular: as noted above Gastrointestinal: denies Nausea, Vomiting, Diarrhea, Constipation or Abdominal Pain Genitourinary: no symptoms reported Musculoskeletal: no symptoms reported Endocrine: Diabetes Mellitus Vital Signs: Last Vital Signs Temp Pulse Resp BP Pulse Ox 97.5 F L 60 17 148/78 99 10/24/16 13:30 10/24/16 13:30 10/24/16 13:30 10/24/16 06:00 10/23/16 21:00 Constitutional: No Distress, Calm Neck: Supple Negative JVD No Bruit Respiratory: Clear to A&P Bilaterally Cardiovascular: S1 S2 Regular Rate and Rhythm Grade 1/6 SM Gastrointestinal: Soft Benign Normal Bowel Sounds Ext: No Edema Labs: CBC, BMP 10/22/16 06:00 10/23/16 05:35 ASSESSMENT/PLAN: ASSESSMENT: 1. 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 Chest pain syndrome atypical for CAD angina pectoris probably musculo- skeletal discomfort 3. CAD post PCI/Stent/CABG angina pectoris 4. PAF post Cryo-Maze procedure, [id number] score of 4 on no A/C 5. Diastolic LV dysfunction with class 0 NYHA classification LV failure 6. HTN 7. DM 8. Hypercholesterolemia 9. Syncopal episode with prodromal symptoms most likely vasovagal etiology 10. Hypothyroidism PLAN: 1. Continue Sotalol 2. Continue Losartan 3. Continue Lipitor 4. Hold ASA 5. To discuss timing of intervention/surgery with the primary team, patient may require additional cardiovascular evaluation prior to proceeding with planned surgical intervention echocardiography and possible MPI study Felicia Lemus M.D.
[2016-10-24] MEDS: ATORVASTATIN CA 40 MG TABLET (FP) PO SCH (21:57)
[2016-10-25] MEDS: LEVOTHYROXINE NA 25 MCG TABLET (FP) PO SCH (06:30)
[2016-10-25] MEDS: glyBURIDE 2.5 MG TABLET (FP) PO SCH (06:31)
[2016-10-25] MEDS: metFORMIN HCL 500 MG TABLET (FP) PO SCH (06:31)
[2016-10-25] MEDS: TAMSULOSIN HCL 0.4 MG CAP.ER.24H (FP) PO SCH (08:17)
[2016-10-25] MEDS ORDERED: PT OWN MED DRAWER 7, Y5N ONE ×2 (09:07→21:44)
[2016-10-25] MEDS: ALLOPURINOL 100 MG TABLET (FP) PO SCH (09:09)
[2016-10-25] MEDS: PARoxetine HCL 10 MG TABLET (FP) PO SCH (09:09)
[2016-10-25] MEDS: PANTOPRAZOLE 40 MG TABLET (FP) PO SCH ×2 (09:09→21:45)
[2016-10-25] MEDS: SOTALOL HCL 80 MG TABLET (FP) PO SCH ×2 (09:09→21:45)
[2016-10-25] MEDS: LOSARTAN POTASSIUM 25 MG TABLET PO SCH (09:09)
[2016-10-25] MEDS: FINASTERIDE 5 MG TABLET (FP) PO SCH (09:10)
[2016-10-25] MEDS: POLYETHYLENE GLYCOL 3350 119 GM BTL PO SCH ×2 (09:10→21:46)
[2016-10-25] MEDS: BACITRACIN 30 GM TUBE TOPICAL OINTMENT TP SCH ×2 (09:10→21:45)
--- NOTE | 2016-10-25 11:06 | PN ---
Progress Note (short form) - Note Progress Note: Chief Complaint: Events noted, notes reviewed, denies any chest pain or dyspnea History of Present Illness: Seen and examined on telemetry. Events noted, notes reviewed, denies any chest pain or dyspnea Discussed in detail with the patient and his daughter Junie who was contacted via telephone that additional cardiovascular vascular evaluation is recommended including echocardiography and MPI study (Junie contacted his electrical apprentice in [place] Dr. Benjamin Wu [phone], his last evaluation was performed 08/27, and as noted patient is post PCI/stent/CABG/Diastolic LV dysfunction/Cryo -Maze for PAF, patient currently has a implantable loop recorder in situ) Medications: Current Medications Acetaminophen (Tylenol -) 650 mg PO Q4H PRN PRN Reason: FEVER OR PAIN Last Admin: 10/19/16 20:54 Dose: 650 mg Allopurinol (Zyloprim -) 100 mg PO DAILY [facility] Last Admin: 10/25/16 09:09 Dose: 100 mg Atorvastatin Calcium (Lipitor -) 40 mg PO HS [facility] Last Admin: 10/24/16 21:57 Dose: 40 mg Bacitracin (Bacitracin -) 1 applic TP BID [facility] Last Admin: 10/25/16 09:10 Dose: 1 applic Finasteride (Proscar -) 5 mg PO DAILY [facility] Last Admin: 10/25/16 09:10 Dose: 5 mg Glyburide (Diabeta -) 2.5 mg PO DAILY@0700 [facility] Last Admin: 10/25/16 06:31 Dose: 2.5 mg Levothyroxine Sodium (Synthroid -) 25 mcg PO DAILY@0700 [facility] Last Admin: 10/25/16 06:30 Dose: 25 mcg Losartan Potassium (Cozaar -) 25 mg PO DAILY [facility] Last Admin: 10/25/16 09:09 Dose: 25 mg Metformin HCl (Glucophage -) 500 mg PO DAILY@0700 [facility] Last Admin: 10/25/16 06:31 Dose: 500 mg Ondansetron HCl (Zofran -) 4 mg PO Q8H PRN PRN Reason: NAUSEA AND/OR VOMITING Last Admin: 10/19/16 20:55 Dose: 4 mg Pantoprazole Sodium (Protonix -) 40 mg PO BID [facility] Last Admin: 10/25/16 09:09 Dose: 40 mg Paroxetine HCl (Paxil -) 10 mg PO DAILY [facility] Last Admin: 10/25/16 09:09 Dose: 10 mg Polyethylene Glycol (Miralax (For Daily Use) -) 17 gm PO BID [facility] Last Admin: 10/25/16 09:10 Dose: Not Given Sotalol HCl (Betapace -) 80 mg PO BID [facility] Last Admin: 10/25/16 09:09 Dose: 80 mg Tamsulosin HCl (Flomax -) 0.4 mg PO DAILY@0830 [facility] Last Admin: 10/25/16 08:17 Dose: 0.4 mg Review of Systems - Review of Systems Constitutional: no symptoms reported Respiratory: denies Cough or Sputum Production Cardiovascular: as noted above Gastrointestinal: denies Nausea, Vomiting, Diarrhea, Constipation or Abdominal Pain Genitourinary: no symptoms reported Musculoskeletal: no symptoms reported Endocrine: Diabetes Mellitus Vital Signs: Last Vital Signs Temp Pulse Resp BP Pulse Ox 98.3 F 67 18 109/61 99 10/25/16 10:00 10/25/16 10:00 10/25/16 10:00 10/25/16 10:00 10/24/16 21:00 Constitutional: No Distress, Calm Neck: Supple Negative JVD No Bruit Respiratory: Clear to A&P Bilaterally Cardiovascular: S1 S2 Regular Rate and Rhythm Grade 1-2/6 SM Gastrointestinal: Soft Benign Normal Bowel Sounds Ext: No Edema Labs: CBC, BMP 10/22/16 06:00 10/23/16 05:35 ASSESSMENT/PLAN: ASSESSMENT: 1. Anemia with history of hematochezia related to colonic adenocarcinoma for surgical intervention this coming week 2. Chest pain syndrome atypical for CAD angina pectoris probably musculo- skeletal discomfort 3. CAD post PCI/Stent/CABG angina pectoris 4. PAF post Cryo-Maze procedure, [id number] score of 4 on no A/C, implantable loop recorder in situ 5. Diastolic LV dysfunction with class 0 NYHA classification LV failure 6. HTN 7. DM 8. Hypercholesterolemia 9. Syncopal episode with prodromal symptoms most likely vaso-vagal etiology 10. Hypothyroidism PLAN: 1. Continue Sotalol 2. Continue Losartan 3. Continue Lipitor 4. Hold ASA, although ideally surgery could have been done with angela-operative continuation of ASA 5. As outlined above to proceed with echocardiography and MPI study in the morning for risk stratification considering his history and presentation Felicia Lemus M.D.
--- NOTE | 2016-10-25 14:54 | PN ---
Progress Note, Physician Chief Complaint: Feels better History of Present Illness: nuclear stress test in am - Current Medication List Current Medications: Active Medications Acetaminophen (Tylenol -) 650 mg PO Q4H PRN PRN Reason: FEVER OR PAIN Last Admin: 10/19/16 20:54 Dose: 650 mg Allopurinol (Zyloprim -) 100 mg PO DAILY [facility] Last Admin: 10/25/16 09:09 Dose: 100 mg Atorvastatin Calcium (Lipitor -) 40 mg PO HS [facility] Last Admin: 10/24/16 21:57 Dose: 40 mg Bacitracin (Bacitracin -) 1 applic TP BID [facility] Last Admin: 10/25/16 09:10 Dose: 1 applic Finasteride (Proscar -) 5 mg PO DAILY [facility] Last Admin: 10/25/16 09:10 Dose: 5 mg Glyburide (Diabeta -) 2.5 mg PO DAILY@0700 [facility] Last Admin: 10/25/16 06:31 Dose: 2.5 mg Levothyroxine Sodium (Synthroid -) 25 mcg PO DAILY@0700 [facility] Last Admin: 10/25/16 06:30 Dose: 25 mcg Losartan Potassium (Cozaar -) 25 mg PO DAILY [facility] Last Admin: 10/25/16 09:09 Dose: 25 mg Metformin HCl (Glucophage -) 500 mg PO DAILY@0700 [facility] Last Admin: 10/25/16 06:31 Dose: 500 mg Ondansetron HCl (Zofran -) 4 mg PO Q8H PRN PRN Reason: NAUSEA AND/OR VOMITING Last Admin: 10/19/16 20:55 Dose: 4 mg Pantoprazole Sodium (Protonix -) 40 mg PO BID [facility] Last Admin: 10/25/16 09:09 Dose: 40 mg Paroxetine HCl (Paxil -) 10 mg PO DAILY [facility] Last Admin: 10/25/16 09:09 Dose: 10 mg Polyethylene Glycol (Miralax (For Daily Use) -) 17 gm PO BID [facility] Last Admin: 10/25/16 09:10 Dose: Not Given Sotalol HCl (Betapace -) 80 mg PO BID [facility] Last Admin: 10/25/16 09:09 Dose: 80 mg Tamsulosin HCl (Flomax -) 0.4 mg PO DAILY@0830 [facility] Last Admin: 10/25/16 08:17 Dose: 0.4 mg - Objective Vital Signs: Vital Signs Temperature 97.3 F L 10/25/16 13:52 Pulse Rate 59 L 10/25/16 13:52 Respiratory Rate 17 10/25/16 13:52 Blood Pressure 109/61 10/25/16 10:00 O2 Sat by Pulse Oximetry (%) 99 10/24/16 21:00 Constitutional: Yes: No Distress Eyes: Yes: WNL HENT: Yes: WNL Neck: Yes: WNL Cardiovascular: Yes: Regular Rate and Rhythm Respiratory: Yes: Regular Gastrointestinal: Yes: Normal Bowel Sounds ...Rectal Exam: Yes: Deferred Genitourinary: Yes: WNL Edema: No Labs: CBC, BMP 10/22/16 06:00 10/23/16 05:35 INR, PTT INR 1.08 (0.82-1.09) 10/19/16 05:35
[2016-10-25] MEDS: ATORVASTATIN CA 40 MG TABLET (FP) PO SCH (21:45)
[2016-10-26] MEDS: glyBURIDE 2.5 MG TABLET (FP) PO SCH ×2 (06:32→12:09)
[2016-10-26] MEDS: metFORMIN HCL 500 MG TABLET (FP) PO SCH ×2 (06:32→12:11)
[2016-10-26] MEDS: LEVOTHYROXINE NA 25 MCG TABLET (FP) PO SCH (06:32)
[2016-10-26 08:06] LABS: SERUM IRON 21 ug/dL (38-169); TOTAL IRON BINDING CAPACITY 356 ug/dL (250-450); UIBC 335 ug/dL (111-343)
[2016-10-26 08:08] LABS: BASOPHIL 0.9 % (0-2.0); EOSINOPHIL 5.7 % (0-4.5); MCH 22.1 pg (25.7-33.7); MCHC 31.7 g/dl (32.0-35.9); MEAN CELL VOLUME 69.5 fl (80-96); MEAN PLT VOLUME 8.4 fl (7.5-11.1); NEUTROPHILS 61.1 % (42.8-82.8); PLATELET COUNT 133 K/MM3 (134-434); RDW 15.9 % (11.9-15.9); WHITE BLOOD COUNT 6.1 K/mm3 (4.0-10.0)
[2016-10-26] MEDS ORDERED: PEG3350/SOD SULF,BICARB,CL/KCL 4,000 ML SOLN.RECON PO ONE (08:26)
[2016-10-26 08:34] LABS: ALBUMIN 3.4 g/dl (3.4-5.0); BILIRUBIN,TOTAL 0.4 mg/dL (0.2-1.0); CALCIUM 8.9 mg/dL (8.5-10.1); CREATININE 1.3 mg/dL (0.7-1.3); TOT PROT 6.3 g/dl (6.4-8.2)
--- NOTE | 2016-10-26 09:13 | PN ---
Progress Note, Physician Chief Complaint: No rectal bleeding No chest pain History of Present Illness: On nuclear stress test to day - Current Medication List Current Medications: Active Medications Acetaminophen (Tylenol -) 650 mg PO Q4H PRN PRN Reason: FEVER OR PAIN Last Admin: 10/19/16 20:54 Dose: 650 mg Allopurinol (Zyloprim -) 100 mg PO DAILY [facility] Last Admin: 10/25/16 09:09 Dose: 100 mg Atorvastatin Calcium (Lipitor -) 40 mg PO HS [facility] Last Admin: 10/25/16 21:45 Dose: 40 mg Bacitracin (Bacitracin -) 1 applic TP BID [facility] Last Admin: 10/25/16 21:45 Dose: 1 applic Finasteride (Proscar -) 5 mg PO DAILY [facility] Last Admin: 10/25/16 09:10 Dose: 5 mg Glyburide (Diabeta -) 2.5 mg PO DAILY@0700 [facility] Last Admin: 10/26/16 06:32 Dose: Not Given Dipyridamole 50 mg/ Dextrose 50 mls @ 750 mls/hr IVPB ONCE ONE Stop: 10/26/16 10:03 Levothyroxine Sodium (Synthroid -) 25 mcg PO DAILY@0700 [facility] Last Admin: 10/26/16 06:32 Dose: Not Given Losartan Potassium (Cozaar -) 25 mg PO DAILY [facility] Last Admin: 10/25/16 09:09 Dose: 25 mg Metformin HCl (Glucophage -) 500 mg PO DAILY@0700 [facility] Last Admin: 10/26/16 06:32 Dose: Not Given Metronidazole (Flagyl -) 500 mg PO BID [facility] Stop: 10/27/16 09:59 Neomycin Sulfate (Mycifradin -) 1,000 mg PO 1300,1400,2300 [facility] Stop: 10/26/16 23:01 Ondansetron HCl (Zofran -) 4 mg PO Q8H PRN PRN Reason: NAUSEA AND/OR VOMITING Last Admin: 10/19/16 20:55 Dose: 4 mg Pantoprazole Sodium (Protonix -) 40 mg PO BID [facility] Last Admin: 10/25/16 21:45 Dose: 40 mg Paroxetine HCl (Paxil -) 10 mg PO DAILY [facility] Last Admin: 10/25/16 09:09 Dose: 10 mg Polyethylene Glycol (Miralax (For Daily Use) -) 17 gm PO BID [facility] Last Admin: 10/25/16 21:46 Dose: Not Given Sotalol HCl (Betapace -) 80 mg PO BID [facility] Last Admin: 10/25/16 21:45 Dose: 80 mg Tamsulosin HCl (Flomax -) 0.4 mg PO DAILY@0830 [facility] Last Admin: 10/25/16 08:17 Dose: 0.4 mg - Objective Vital Signs: Vital Signs Temperature 98.4 F 10/26/16 06:44 Pulse Rate 62 10/26/16 06:44 Respiratory Rate 20 10/26/16 06:44 Blood Pressure 138/74 10/26/16 06:44 O2 Sat by Pulse Oximetry (%) 99 10/24/16 21:00 Constitutional: Yes: No Distress Eyes: Yes: WNL HENT: Yes: WNL Neck: Yes: WNL Cardiovascular: Yes: WNL Respiratory: Yes: WNL Gastrointestinal: Yes: Normal Bowel Sounds ...Rectal Exam: Yes: Deferred Edema: No Neurological: Yes: Alert Psychiatric: Yes: Alert Labs: CBC, BMP 10/26/16 06:38 10/26/16 06:38 INR, PTT INR 1.08 (0.82-1.09) 10/19/16 05:35 Assessment/Plan If stress test is OK ,will clear him for surgery
[2016-10-26] MEDS ORDERED: DIPYRIDAMOLE STRESS TEST 50 MG in DEXTROSE 5%-WATER - 40 ML IVPB ONE (10:00)
--- NOTE | 2016-10-26 11:36 | PN ---
Progress Note, Physician - Current Medication List Current Medications: Active Medications Acetaminophen (Tylenol -) 650 mg PO Q4H PRN PRN Reason: FEVER OR PAIN Last Admin: 10/19/16 20:54 Dose: 650 mg Allopurinol (Zyloprim -) 100 mg PO DAILY [facility] Last Admin: 10/25/16 09:09 Dose: 100 mg Atorvastatin Calcium (Lipitor -) 40 mg PO HS [facility] Last Admin: 10/25/16 21:45 Dose: 40 mg Bacitracin (Bacitracin -) 1 applic TP BID [facility] Last Admin: 10/25/16 21:45 Dose: 1 applic Finasteride (Proscar -) 5 mg PO DAILY [facility] Last Admin: 10/25/16 09:10 Dose: 5 mg Glyburide (Diabeta -) 2.5 mg PO DAILY@0700 [facility] Last Admin: 10/26/16 06:32 Dose: Not Given Levothyroxine Sodium (Synthroid -) 25 mcg PO DAILY@0700 [facility] Last Admin: 10/26/16 06:32 Dose: Not Given Losartan Potassium (Cozaar -) 25 mg PO DAILY [facility] Last Admin: 10/25/16 09:09 Dose: 25 mg Metformin HCl (Glucophage -) 500 mg PO DAILY@0700 [facility] Last Admin: 10/26/16 06:32 Dose: Not Given Metronidazole (Flagyl -) 500 mg PO BID [facility] Stop: 10/27/16 09:59 Neomycin Sulfate (Mycifradin -) 1,000 mg PO 1300,1400,2300 [facility] Stop: 10/26/16 23:01 Ondansetron HCl (Zofran -) 4 mg PO Q8H PRN PRN Reason: NAUSEA AND/OR VOMITING Last Admin: 10/19/16 20:55 Dose: 4 mg Pantoprazole Sodium (Protonix -) 40 mg PO BID [facility] Last Admin: 10/25/16 21:45 Dose: 40 mg Paroxetine HCl (Paxil -) 10 mg PO DAILY [facility] Last Admin: 10/25/16 09:09 Dose: 10 mg Polyethylene Glycol (Miralax (For Daily Use) -) 17 gm PO BID [facility] Last Admin: 10/25/16 21:46 Dose: Not Given Sotalol HCl (Betapace -) 80 mg PO BID [facility] Last Admin: 10/25/16 21:45 Dose: 80 mg Tamsulosin HCl (Flomax -) 0.4 mg PO DAILY@0830 [facility] Last Admin: 10/25/16 08:17 Dose: 0.4 mg - Objective Vital Signs: Vital Signs Temperature 98.4 F 10/26/16 06:44 Pulse Rate 62 10/26/16 06:44 Respiratory Rate 20 10/26/16 06:44 Blood Pressure 138/74 10/26/16 06:44 O2 Sat by Pulse Oximetry (%) 99 10/24/16 21:00 Labs: CBC, BMP 10/26/16 06:38 10/26/16 06:38 INR, PTT INR 1.08 (0.82-1.09) 10/19/16 05:35 Problem List - Problems (1) Colonic mass Code(s): K63.9 - DISEASE OF INTESTINE, UNSPECIFIED (2) Anemia associated with acute blood loss Code(s): D62 - ACUTE POSTHEMORRHAGIC ANEMIA (3) Obesity Code(s): E66.9 - OBESITY, UNSPECIFIED Qualifiers: Obesity type: due to excess calories Obesity severity: morbid Qualified Code(s): E66.01 - Morbid (severe) obesity due to excess calories (4) Coronary artery disease Code(s): I25.10 - ATHSCL HEART DISEASE OF [place] CORONARY ARTERY W/O ANG PCTRS Qualifiers: Coronary Disease-Associated Artery/Lesion type: [place] artery [place] vs. transplanted heart: [place] heart Associated angina: without angina Qualified Code(s): I25.10 - Atherosclerotic heart disease of [place] coronary artery without angina pectoris (5) Hypertension Code(s): I10 - ESSENTIAL (PRIMARY) HYPERTENSION Qualifiers: Hypertension type: essential hypertension Qualified Code(s): I10 - Essential (primary) hypertension (6) Thrombocytopenia Code(s): D69.6 - THROMBOCYTOPENIA, UNSPECIFIED Assessment/Plan He is scheduled for laparoscopy, possible laparoscopic assisted right hemicolectomy, and liver biopsy. His cardiac status may limit the ability to distend his abdomen, and abdominal distension , and CO2 insufflation, may compromise cardiac output. Most likely will have an open laparotomy. Patient has been informed , of the surgical procedure planned for carcinoma of the hepatic flexure, and an adenoma of the proximal transverse colon. Risks, benefits and complications , and alternatives, have been explained to the patient, and his family. Complications related, to his obesity , cardiac status, thrombocytopenia , ? underlying liver disease, etc. are informed. The possible need, for blood transfusion, has been explained. Consent obtained, bowel prep in progress.
[2016-10-26] MEDS ORDERED: PT OWN MED DRAWER 7, Y5N ONE (11:59)
[2016-10-26] MEDS: LOSARTAN POTASSIUM 25 MG TABLET PO SCH (12:07)
[2016-10-26] MEDS: TAMSULOSIN HCL 0.4 MG CAP.ER.24H (FP) PO SCH (12:07)
[2016-10-26] MEDS: PANTOPRAZOLE 40 MG TABLET (FP) PO SCH ×2 (12:07→21:19)
[2016-10-26] MEDS: BACITRACIN 30 GM TUBE TOPICAL OINTMENT TP SCH ×2 (12:07→21:20)
[2016-10-26] MEDS: metroNIDAZOLE 250 MG TABLET PO SCH ×2 (12:08→21:19)
[2016-10-26] MEDS: SOTALOL HCL 80 MG TABLET (FP) PO SCH ×2 (12:09→21:20)
[2016-10-26] MEDS: FINASTERIDE 5 MG TABLET (FP) PO SCH (12:09)
[2016-10-26] MEDS: ALLOPURINOL 100 MG TABLET (FP) PO SCH (12:09)
[2016-10-26] MEDS: NEOMYCIN SO4 500 MG TABLET PO SCH ×3 (12:10→22:06)
[2016-10-26] MEDS: PARoxetine HCL 10 MG TABLET (FP) PO SCH (12:10)
[2016-10-26] MEDS: POLYETHYLENE GLYCOL 3350 119 GM BTL PO SCH ×2 (12:10→21:21)
--- NOTE | 2016-10-26 12:13 | PN ---
Progress Note, Physician Chief Complaint: Events noted Not in distress History of Present Illness: Patient was seen and examined. Awake and alert. Chart was reviewed Denies chest pain, SOB or palpitations - Current Medication List Current Medications: Active Medications Acetaminophen (Tylenol -) 650 mg PO Q4H PRN PRN Reason: FEVER OR PAIN Last Admin: 10/19/16 20:54 Dose: 650 mg Allopurinol (Zyloprim -) 100 mg PO DAILY [facility] Last Admin: 10/26/16 12:09 Dose: 100 mg Atorvastatin Calcium (Lipitor -) 40 mg PO HS [facility] Last Admin: 10/25/16 21:45 Dose: 40 mg Bacitracin (Bacitracin -) 1 applic TP BID [facility] Last Admin: 10/26/16 12:07 Dose: 1 applic Finasteride (Proscar -) 5 mg PO DAILY [facility] Last Admin: 10/26/16 12:09 Dose: 5 mg Glyburide (Diabeta -) 2.5 mg PO DAILY@0700 [facility] Last Admin: 10/26/16 12:09 Dose: 2.5 mg Levothyroxine Sodium (Synthroid -) 25 mcg PO DAILY@0700 [facility] Last Admin: 10/26/16 06:32 Dose: Not Given Losartan Potassium (Cozaar -) 25 mg PO DAILY [facility] Last Admin: 10/26/16 12:07 Dose: 25 mg Metformin HCl (Glucophage -) 500 mg PO DAILY@0700 [facility] Last Admin: 10/26/16 12:11 Dose: 500 mg Metronidazole (Flagyl -) 500 mg PO BID [facility] Stop: 10/27/16 09:59 Last Admin: 10/26/16 12:08 Dose: 500 mg Neomycin Sulfate (Mycifradin -) 1,000 mg PO 1300,1400,2300 [facility] Stop: 10/26/16 23:01 Last Admin: 10/26/16 12:10 Dose: 1,000 mg Ondansetron HCl (Zofran -) 4 mg PO Q8H PRN PRN Reason: NAUSEA AND/OR VOMITING Last Admin: 10/19/16 20:55 Dose: 4 mg Pantoprazole Sodium (Protonix -) 40 mg PO BID [facility] Last Admin: 10/26/16 12:07 Dose: 40 mg Paroxetine HCl (Paxil -) 10 mg PO DAILY [facility] Last Admin: 10/26/16 12:10 Dose: Not Given Polyethylene Glycol (Miralax (For Daily Use) -) 17 gm PO BID [facility] Last Admin: 10/26/16 12:10 Dose: Not Given Sotalol HCl (Betapace -) 80 mg PO BID [facility] Last Admin: 10/26/16 12:09 Dose: 80 mg Tamsulosin HCl (Flomax -) 0.4 mg PO DAILY@0830 [facility] Last Admin: 10/26/16 12:07 Dose: 0.4 mg - Objective Vital Signs: Vital Signs Temperature 98.4 F 10/26/16 06:44 Pulse Rate 62 10/26/16 06:44 Respiratory Rate 20 10/26/16 06:44 Blood Pressure 138/74 10/26/16 06:44 O2 Sat by Pulse Oximetry (%) 99 10/24/16 21:00 Neck: Yes: Supple Cardiovascular: Yes: Regular Rate and Rhythm, Murmur (Soft SM), S1, S2 Respiratory: Yes: CTA Bilaterally Gastrointestinal: Yes: Normal Bowel Sounds, Soft. No: Tenderness Edema: No Additional Findings/Remarks: - Review of Systems Constitutional: no symptoms reported Respiratory: denies Cough or Sputum Production Cardiovascular: as noted above Gastrointestinal: denies Nausea, Vomiting, Diarrhea, Constipation or Abdominal Pain Genitourinary: no symptoms reported Musculoskeletal: no symptoms reported Endocrine: Diabetes Mellitus Labs: CBC, BMP 10/26/16 06:38 10/26/16 06:38 Problem List - Problems (1) Anemia associated with acute blood loss Code(s): D62 - ACUTE POSTHEMORRHAGIC ANEMIA (2) Colonic mass Code(s): K63.9 - DISEASE OF INTESTINE, UNSPECIFIED (3) Syncope Code(s): R55 - SYNCOPE AND COLLAPSE Qualifiers: Syncope type: vasovagal syncope Qualified Code(s): R55 - Syncope and collapse (4) Coronary artery disease Code(s): I25.10 - ATHSCL HEART DISEASE OF [place] CORONARY ARTERY W/O ANG PCTRS Qualifiers: Coronary Disease-Associated Artery/Lesion type: [place] artery [place] vs. transplanted heart: [place] heart Associated angina: without angina Qualified Code(s): I25.10 - Atherosclerotic heart disease of [place] coronary artery without angina pectoris (5) Diabetes mellitus Code(s): E11.9 - TYPE 2 DIABETES MELLITUS WITHOUT COMPLICATIONS Qualifiers: Diabetes mellitus type: type 2 Diabetes mellitus complication status: without complication Diabetes mellitus correction insulin use: without correction use Qualified Code(s): E11.9 - Type 2 diabetes mellitus without complications (6) Diastolic dysfunction Code(s): I51.9 - HEART DISEASE, UNSPECIFIED (7) Hyperlipidemia Code(s): E78.5 - HYPERLIPIDEMIA, UNSPECIFIED Qualifiers: Hyperlipidemia type: pure hypercholesterolemia Qualified Code(s): E78.0 - Pure hypercholesterolemia (8) Hypertension Code(s): I10 - ESSENTIAL (PRIMARY) HYPERTENSION Qualifiers: Hypertension type: essential hypertension Qualified Code(s): I10 - Essential (primary) hypertension (9) Paroxysmal atrial fibrillation Code(s): I48.0 - PAROXYSMAL ATRIAL FIBRILLATION (10) S/P Maze operation for atrial fibrillation Code(s): Z98.89 - OTHER SPECIFIED POSTPROCEDURAL STATES * DO NOT USE * Z86.79 - PERSONAL HISTORY OF OTHER DISEASES OF THE CIRCULATORY SYSTEM (11) S/P coronary artery bypass graft x 3 Code(s): Z95.1 - PRESENCE OF AORTOCORONARY BYPASS GRAFT (12) Status post coronary artery stent placement Code(s): Z95.5 - PRESENCE OF CORONARY ANGIOPLASTY IMPLANT AND GRAFT Assessment/Plan 1. 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 CAD post PCI/Stent/CABG angina pectoris 3. PAF post Cryo-Maze procedure, [id number] score of 4 on no A/C 4. Diastolic LV dysfunction with class 0 NYHA classification LV failure 5. HTN 6. DM 7. Hypercholesterolemia 8. Syncopal episode with prodromal symptoms most likely vasovagal etiology 9. Hypothyroidism PLAN: 1. Continue Sotalol 2. Continue Losartan 3. Continue Lipitor 4. ASA has been held in preparation for surgery 5. Nuclear myocardial perfusion imaging for risk stratification and transthoracic echocardiography ADDENDUM: Spoke with Dr. Benjamin Wu who is his advanced practice nurse and also spoke to his daughter regarding nuclear myocardial perfusion imaging result. Nuclear MPI showed small to moderate inferior ischemia with LVEF 46%. Patient remains asymptomatic, therefore, despite abnormal stress testing, there would be no absolute contraindication in proceeding with surgery at this time, in view of absence of ischemic symptoms, decompensated congestive heart failure or malignant arrhythmia and also with the nature of illness. patient should proceed with planned surgery. Further plans are to follow James Killian MD
[2016-10-26] MEDS ORDERED: D5-1/2NS+20 MEQ KCL - 1,000 ML IV SCH (19:45)
[2016-10-26] MEDS: ATORVASTATIN CA 40 MG TABLET (FP) PO SCH (21:20)
--- NOTE | 2016-10-26 21:53 | PN ---
Progress Note (short form) - Note Progress Note: Patient seen and examined Denies any c/o AFVSS HEENT: VIVIANA, EOM Intact Oropharynx: No thrush, No mucositis Cor: RSR, No murmurs, No gallops Lungs: Clear to P&A Abd: Soft, Normal bowel sounds, No organomegaly Ext:No significant edema Abnormal Lab Results 10/24/16 10/26/16 10/26/16 07:35 06:38 06:38 Hgb 9.3 L Hct 29.2 L MCV 69.5 L MCHC 31.7 L Plt Count 133 L Eosinophils % 5.7 H Anion Gap 7 L Random Glucose 134 H Iron 21 L Iron Saturation 6 L AST 7 L D Total Protein 6.3 L JOCE Screen Positive H Current Medications Acetaminophen (Tylenol -) 650 mg PO Q4H PRN PRN Reason: FEVER OR PAIN Last Admin: 10/19/16 20:54 Dose: 650 mg Allopurinol (Zyloprim -) 100 mg PO DAILY [facility] Last Admin: 10/26/16 12:09 Dose: 100 mg Atorvastatin Calcium (Lipitor -) 40 mg PO HS [facility] Last Admin: 10/26/16 21:20 Dose: 40 mg Bacitracin (Bacitracin -) 1 applic TP BID [facility] Last Admin: 10/26/16 21:20 Dose: 1 applic Finasteride (Proscar -) 5 mg PO DAILY [facility] Last Admin: 10/26/16 12:09 Dose: 5 mg Glyburide (Diabeta -) 2.5 mg PO DAILY@0700 [facility] Last Admin: 10/27/16 06:05 Dose: Not Given Potassium Chloride/Dextrose/Sod Cl (D5-1/2ns+20 Meq Kcl -) 1,000 mls @ 75 mls/ hr IV ASDIR [facility] Last Admin: 10/26/16 21:16 Dose: 75 mls/hr Levothyroxine Sodium (Synthroid -) 25 mcg PO DAILY@0700 [facility] Last Admin: 10/27/16 06:01 Dose: 25 mcg Losartan Potassium (Cozaar -) 25 mg PO DAILY [facility] Last Admin: 10/26/16 12:07 Dose: 25 mg Metformin HCl (Glucophage -) 500 mg PO DAILY@0700 [facility] Last Admin: 10/27/16 06:05 Dose: Not Given Metronidazole (Flagyl -) 500 mg PO BID [facility] Stop: 10/27/16 09:59 Last Admin: 10/26/16 21:19 Dose: 500 mg Ondansetron HCl (Zofran -) 4 mg PO Q8H PRN PRN Reason: NAUSEA AND/OR VOMITING Last Admin: 10/19/16 20:55 Dose: 4 mg Pantoprazole Sodium (Protonix -) 40 mg PO BID [facility] Last Admin: 10/26/16 21:19 Dose: 40 mg Paroxetine HCl (Paxil -) 10 mg PO DAILY [facility] Last Admin: 10/26/16 12:10 Dose: Not Given Polyethylene Glycol (Miralax (For Daily Use) -) 17 gm PO BID [facility] Last Admin: 10/26/16 21:21 Dose: Not Given Sotalol HCl (Betapace -) 80 mg PO BID [facility] Last Admin: 10/26/16 21:20 Dose: 80 mg Tamsulosin HCl (Flomax -) 0.4 mg PO DAILY@0830 [facility] Last Admin: 10/26/16 12:07 Dose: 0.4 mg A/P 1) Colonic mass Assessment/Plan: 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 Will need surgery. CT with picture compatible with hepatocellular disease and splenomegaly. No obvious mets. CT chest -- nl CEA--nl Pathology will determine any adjuvant treatments which may be required (2) Thrombocytopenia Assessment/Plan: Ct with hepatocellular disease and fatty liver . Also with splenomegaly, likely secondary to liver disease. 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 Current platelet count is adequate for surgery. (124K) Code(s): D69.6 - THROMBOCYTOPENIA, UNSPECIFIED (3) Iron deficiency due to colonoc adenoca Hgb 9.3 transfuse perioperatively as necessary will need iron supplementation
[2016-10-27] MEDS: LEVOTHYROXINE NA 25 MCG TABLET (FP) PO SCH (06:01)
[2016-10-27] MEDS: metFORMIN HCL 500 MG TABLET (FP) PO SCH (06:05)
[2016-10-27] MEDS: glyBURIDE 2.5 MG TABLET (FP) PO SCH (06:05)
[2016-10-27] MEDS ORDERED: PROPOFOL 20 ML ONE (07:38)
[2016-10-27] MEDS ORDERED: SUCCINYLCHOLINE CHLORIDE 200 MG/10 ML VIAL ONE (07:38)
[2016-10-27] MEDS ORDERED: ROCURONIUM BROMIDE 50 MG/5 ML VIAL ONE ×2 (07:38→08:48)
[2016-10-27] MEDS ORDERED: MIDAZOLAM HCL 2 MG/2 ML SINGLE DOSE VIAL ONE (07:39)
[2016-10-27 07:47] LABS: MCH 21.8 pg (25.7-33.7); MCHC 31.6 g/dl (32.0-35.9); MEAN CELL VOLUME 69.2 fl (80-96); MEAN PLT VOLUME 8.4 fl (7.5-11.1); PLATELET COUNT 151 K/MM3 (134-434); RDW 16.2 % (11.9-15.9); WHITE BLOOD COUNT 6.3 K/mm3 (4.0-10.0)
[2016-10-27 08:12] LABS: INR 1.16 (0.82-1.09); PROTHROMBIN TIME (PATIENT) 12.8 SEC (9.98-11.88)
[2016-10-27] MEDS ORDERED: ceFAZolin 2 GRAM PREMIX BAG IVPB SCH (08:15)
[2016-10-27] MEDS ORDERED: LIDOCAINE HCL/PF 2% SDV 5ML VIAL ONE (08:17)
[2016-10-27] MEDS ORDERED: AMPICILLIN NA/SULBACTAM NA 1.5 GM VIAL ONE ×2 (08:21→08:31)
[2016-10-27 08:24] LABS: ALBUMIN 3.6 g/dl (3.4-5.0); CALCIUM 8.6 mg/dL (8.5-10.1); CREATININE 1.2 mg/dL (0.7-1.3)
[2016-10-27 08:25] LABS: BILIRUBIN,TOTAL 0.5 mg/dL (0.2-1.0); TOT PROT 6.4 g/dl (6.4-8.2)
[2016-10-27] MEDS ORDERED: ceFAZolin SODIUM 1 GM VIAL IVPB ONE (08:30)
[2016-10-27] MEDS ORDERED: ceFAZolin SODIUM 1 GM VIAL ONE (08:30)
[2016-10-27] MEDS ORDERED: AMPICILLIN NA/SULBACTAM NA 3 GM VIAL IVPB ONE (08:33)
[2016-10-27] MEDS ORDERED: ONDANSETRON 4 MG/2 ML VIAL ONE (09:07)
[2016-10-27] MEDS ORDERED: HYDROmorphone HCL/PF 1 MG/ML VIAL (FOR PYXIS CHARGING ONLY) ONE (10:47)
[2016-10-27] MEDS ORDERED: NEOSTIGMINE METHYLSULFATE 0.5 MG/ML - 10 ML MDV ONE (10:59)
--- NOTE | 2016-10-27 11:21 | OP ---
Operative Note - Note: Operative Date: 10/27/16 Pre-Operative Diagnosis: Adenocarcinoma of the hepatic flexure of the colon, and adenoma of the transverse colon. Operation: Laparoscopic assisted, extended right hemicolectomy, iliotransverse anastamosis, and wedge biopsy of the liver. Findings: Two areas of inked lesion in the specimen with adequate margin. Tumor felt at the hepatic flexure, small, did not appear through the wall. Normal appearing liver. Post-Operative Diagnosis: Same as Pre-op Surgeon: Chuck Rubi Coal Deliverer: Mike Ugarte Anesthesia: General Specimens Removed: 1)Extended right hemicolectomy,. 2) wedge biosy of the liver. Estimated Blood Loss (mls): 50 Operative Report Dictated: Yes
[2016-10-27] MEDS: HYDROmorphone HCL CARPU-JECT 1 MG/1 ML DISP.SYRIN IVPUSH PRN ×2 (11:45→11:55)
[2016-10-27] MEDS ORDERED: HYDROmorphone HCL CARPU-JECT 2 MG/1 ML DISP.SYRIN ONE (11:45)
[2016-10-27] MEDS ORDERED: HYDROmorphone *PCA* 10MG/50ML DISP.SYRIN PCA SCH ×2 (11:58→12:00)
[2016-10-27] MEDS ORDERED: HYDROmorphone *PCA* 10MG/50ML DISP.SYRIN PCA ONE (12:02)
[2016-10-27 12:43] LABS: MCH 21.5 pg (25.7-33.7); MCHC 30.8 g/dl (32.0-35.9); MEAN PLT VOLUME 8.2 fl (7.5-11.1); PLATELET COUNT 180 K/MM3 (134-434); RDW 16.3 % (11.9-15.9); WHITE BLOOD COUNT 11.3 K/mm3 (4.0-10.0)
[2016-10-27 13:15] LABS: ALBUMIN 3.4 g/dl (3.4-5.0); CALCIUM 8.5 mg/dL (8.5-10.1); CREATININE 1.4 mg/dL (0.7-1.3)
[2016-10-27 13:19] LABS: BILIRUBIN,TOTAL 0.5 mg/dL (0.2-1.0); TOT PROT 6.3 g/dl (6.4-8.2)
--- NOTE | 2016-10-27 13:21 | SURG ---
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 Procedure: Laparoscopic assisted, extended right hemicolectomy, iliotransverse anastamosis , and wedge biopsy of the liver I was present for the entirety of the operative procedure. For further detail, please refer to operative report. Visit type - Case Type Case Type: Scheduled Admission - New patient This patient is new to me today: Yes Date on this admission: 10/27/16
--- NOTE | 2016-10-27 13:24 | PN ---
Progress Note, Physician Chief Complaint: Seen in recovery room post op laparoscopic hemicolectomy History of Present Illness: Patient was seen and examined. Awake and alert. Chart was reviewed Post operative incisional pain otherwise hemodynamically stable - Current Medication List Current Medications: Active Medications Heparin Sodium (Porcine) (Heparin -) 5,000 unit SQ BID [facility] Hydromorphone HCl (Dilaudid Extension Forester -) 10 mg PIZZA DELIVERY PIZZA DELIVERY [facility] PRN Reason: Protocol Stop: 10/30/16 11:46 Cefazolin Sodium (Ancef 1gm Ivpb (Pre-Docked)) 50 mls @ 100 mls/hr IVPB BID [facility] Stop: 10/28/16 21:59 Lactated Ringer's (Lactated Ringers Solution) 1,000 mls @ 125 mls/hr IV ASDIR [facility] - Objective Vital Signs: Vital Signs Temperature 98.1 F 10/27/16 11:35 Pulse Rate 52 L 10/27/16 11:35 Respiratory Rate 16 10/27/16 11:35 Blood Pressure 154/73 10/27/16 11:35 O2 Sat by Pulse Oximetry (%) 99 10/27/16 11:35 Neck: Yes: Supple Cardiovascular: Yes: Regular Rate and Rhythm, S1, S2 Respiratory: Yes: Diminished Gastrointestinal: Yes: Other (Post op) Edema: No Additional Findings/Remarks: - Review of Systems Constitutional: no symptoms reported Respiratory: denies Cough or Sputum Production Cardiovascular: as noted above Gastrointestinal: denies Nausea, Vomiting, Diarrhea, Constipation or Abdominal Pain Genitourinary: no symptoms reported Musculoskeletal: no symptoms reported Labs: CBC, BMP 10/27/16 12:00 INR, PTT INR 1.16 (0.82-1.09) H 10/27/16 06:30 Problem List - Problems (1) Anemia associated with acute blood loss Code(s): D62 - ACUTE POSTHEMORRHAGIC ANEMIA (2) Colonic mass Code(s): K63.9 - DISEASE OF INTESTINE, UNSPECIFIED (3) Syncope Code(s): R55 - SYNCOPE AND COLLAPSE Qualifiers: Syncope type: vasovagal syncope Qualified Code(s): R55 - Syncope and collapse (4) Coronary artery disease Code(s): I25.10 - ATHSCL HEART DISEASE OF [place] CORONARY ARTERY W/O ANG PCTRS Qualifiers: Coronary Disease-Associated Artery/Lesion type: [place] artery [place] vs. 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 insulin use: without jail use Qualified Code(s): E11.9 - Type 2 diabetes mellitus without complications (6) Diastolic dysfunction Code(s): I51.9 - HEART DISEASE, UNSPECIFIED (7) Hyperlipidemia Code(s): E78.5 - HYPERLIPIDEMIA, UNSPECIFIED Qualifiers: Hyperlipidemia type: pure hypercholesterolemia Qualified Code(s): E78.0 - Pure hypercholesterolemia (8) Hypertension Code(s): I10 - ESSENTIAL (PRIMARY) HYPERTENSION Qualifiers: Hypertension type: essential hypertension Qualified Code(s): I10 - Essential (primary) hypertension (9) Paroxysmal atrial fibrillation Code(s): I48.0 - PAROXYSMAL ATRIAL FIBRILLATION (10) S/P Maze operation for atrial fibrillation Code(s): Z98.89 - OTHER SPECIFIED POSTPROCEDURAL STATES * DO NOT USE * Z86.79 - PERSONAL HISTORY OF OTHER DISEASES OF THE CIRCULATORY SYSTEM (11) S/P coronary artery bypass graft x 3 Code(s): Z95.1 - PRESENCE OF AORTOCORONARY BYPASS GRAFT (12) Status post coronary artery stent placement Code(s): Z95.5 - PRESENCE OF CORONARY ANGIOPLASTY IMPLANT AND GRAFT Assessment/Plan 1. 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 CAD post PCI/Stent/CABG angina pectoris - abnormal nuclear MPI 3. PAF post Cryo-Maze procedure, [id number] score of 4 on no A/C 4. Diastolic LV dysfunction with class 0 NYHA classification LV failure 5. HTN 6. DM 7. Hypercholesterolemia 8. Syncopal episode with prodromal symptoms most likely vasovagal etiology 9. Hypothyroidism PLAN: 1. Continue Sotalol and Losartan when able to. Monitor ECG and consider telemetry monitoring immediately post op 2. Continue Lipitor 3. ASA has been held in preparation for surgery, but should be restarted when able to 4. Surgical post op follow up Further plans are to follow James Killian MD
--- NOTE | 2016-10-27 15:16 | EKG ---
Test Reason : Blood Pressure : / mmHG Vent. Rate : 060 BPM Atrial Rate : 060 BPM P-R Int : 174 ms QRS Dur : 100 ms QT Int : 468 ms P-R-T Axes : 070 -09 007 degrees QTc Int : 468 ms NORMAL SINUS RHYTHM NORMAL ECG WHEN COMPARED WITH ECG OF 19-OCT-2016 09:39, T WAVE INVERSION NO LONGER EVIDENT IN LATERAL LEADS Confirmed by EDWARD LEDBETTER MD ([id number]) on 10/27/2016 3:16:08 PM Referred By: EDWARD LEDBETTER Confirmed By:EDWARD LEDBETTER MD
[2016-10-27 19:33] LABS: TROPONIN I < 0.02 ng/ml (0.00-0.05)
[2016-10-27] MEDS: LACTATED RINGERS SOLUTION 1,000 ML IV SCH (20:00)
--- NOTE | 2016-10-27 20:17 | PN ---
Progress Note (short form) - Note Progress Note: Patient seen a and examined Laparoscopic assisted right hemicolectomy with ileotransverse anastomosis. Liver biopsy. Post op lying in bed on CLARK DRIVER. Last Vital Signs Temp Pulse Resp BP Pulse Ox 97.8 F 73 18 137/71 100 10/27/16 17:59 10/27/16 19:00 10/27/16 19:00 10/27/16 19:00 10/27/16 14:30 NG tube Lungs - diminished breath sounds Cor -regular rhythm Abd- wound sites -dry Ext-SCD CBC, BMP 10/27/16 12:00 10/27/16 12:00 Current Medications Generic Name Dose Route Start Last Admin Trade Name Freq PRN Reason Stop Dose Admin Heparin Sodium (Porcine) 5,000 unit 10/28/16 10:00 Heparin - SQ BID [facility] Hydromorphone HCl 10 mg 10/27/16 12:00 10/27/16 13:00 Dilaudid Lisw - [employer] DRIVER 10/30/16 11:46 10 mg [employer] [employer]IVER [facility] Administration Protocol Cefazolin Sodium 50 mls @ 100 mls/hr 10/27/16 22:00 Ancef 1gm Ivpb (Pre-Docked) IVPB 10/28/16 21:59 BID [facility] Lactated Ringer's 1,000 mls @ 125 mls/hr 10/27/16 12:00 Lactated Ringers Solution IV ASDIR [facility] Impression: S/P laparoscopic assisted right hemicolectomy Await path. Problem List - Problems (1) Colonic mass Code(s): K63.9 - DISEASE OF INTESTINE, UNSPECIFIED (2) Thrombocytopenia Code(s): D69.6 - THROMBOCYTOPENIA, UNSPECIFIED (3) Rectal bleed Code(s): K62.5 - HEMORRHAGE OF ANUS AND RECTUM
[2016-10-27] MEDS: CEFAZOLIN 1 GM/50 ML IVPB SCH (22:52)
[2016-10-28 00:15] LABS: HEP B SURFACE AB Non Reactive (.)
[2016-10-28] MEDS: LACTATED RINGERS SOLUTION 1,000 ML IV SCH ×3 (05:15→21:55)
[2016-10-28 07:14] LABS: MCH 21.9 pg (25.7-33.7); MCHC 31.5 g/dl (32.0-35.9); MEAN CELL VOLUME 69.5 fl (80-96); MEAN PLT VOLUME 8.5 fl (7.5-11.1); PLATELET COUNT 149 K/MM3 (134-434); RDW 16.1 % (11.9-15.9); WHITE BLOOD COUNT 10.1 K/mm3 (4.0-10.0)
[2016-10-28 07:48] LABS: BILIRUBIN,TOTAL 0.6 mg/dL (0.2-1.0); CALCIUM 8.1 mg/dL (8.5-10.1); CREATININE 1.3 mg/dL (0.7-1.3); TOT PROT 5.9 g/dl (6.4-8.2)
[2016-10-28] MEDS: CEFAZOLIN 1 GM/50 ML IVPB SCH (09:14)
[2016-10-28] MEDS: HEPARIN NA (PORCINE) 5,000 UNITS/ML 1ML VIAL SQ SCH ×2 (09:15→21:36)
--- NOTE | 2016-10-28 09:25 | PN ---
Progress Note, Physician History of Present Illness: S/P Rt colectomy and vedge biopsy of liver - Current Medication List Current Medications: Active Medications Heparin Sodium (Porcine) (Heparin -) 5,000 unit SQ BID [facility] Last Admin: 10/28/16 09:15 Dose: 5,000 unit Hydromorphone HCl (Dilaudid Natural Remedy Consultant -) 10 mg MATERIALS HANDLING COORDINATOR MATERIALS HANDLING COORDINATOR CUATE PRN Reason: Protocol Stop: 10/30/16 11:46 Last Admin: 10/27/16 13:00 Dose: 10 mg Cefazolin Sodium (Ancef 1gm Ivpb (Pre-Docked)) 50 mls @ 100 mls/hr IVPB BID [facility] Stop: 10/28/16 21:59 Last Admin: 10/28/16 09:14 Dose: 100 mls/hr Lactated Ringer's (Lactated Ringers Solution) 1,000 mls @ 125 mls/hr IV ASDIR [facility] Last Admin: 10/28/16 05:15 Dose: 125 mls/hr - Objective Vital Signs: Vital Signs Temperature 98.1 F 10/28/16 06:05 Pulse Rate 72 10/28/16 06:05 Respiratory Rate 18 10/28/16 06:05 Blood Pressure 123/68 10/28/16 06:05 O2 Sat by Pulse Oximetry (%) 92 L 10/27/16 21:00 Constitutional: Yes: Mild Distress Eyes: Yes: WNL HENT: Yes: WNL Neck: Yes: WNL Cardiovascular: Yes: Regular Rate and Rhythm Respiratory: Yes: Regular Gastrointestinal: Yes: Hypoactive Bowel Sounds ...Rectal Exam: Yes: Deferred Genitourinary: Yes: WNL Edema: No Wound/Incision: Yes: Dressing Dry and Intact Psychiatric: Yes: Alert Labs: CBC, BMP 10/28/16 06:10 10/28/16 06:10 INR, PTT INR 1.16 (0.82-1.09) H 10/27/16 06:30 Assessment/Plan pot op, Dr Rubi will follow
[2016-10-28 10:16] LABS: ALPHA 2 MACROGLOBULINS,QN 276 mg/dL (110-276); BILIRUBIN TOTAL 0.2 mg/dL (0.0-1.2); FIBROSIS STAGE F1-F2 (.); GGT= 20 IU/L (0-65); GLUCOSE SERUM 149 mg/dL (65-99); HAPTOGLOBIN= 115 mg/dL (34-200); HEIGHT 63 Inches (.); TRIGLYCERIDES= 173 mg/dL (0-149)
--- NOTE | 2016-10-28 10:27 | PN ---
Progress Note, Physician History of Present Illness: s/p laparoscopic assisted right hemicolectomy with ileotransverse anastomosis. Liver biopsy. Post-op pain adequately controlled, passing flatus. Denies chest pain or dyspnea. - Current Medication List Current Medications: Active Medications Heparin Sodium (Porcine) (Heparin -) 5,000 unit SQ BID [facility] Last Admin: 10/28/16 09:15 Dose: 5,000 unit Hydromorphone HCl (Dilaudid Mental Measurements Teacher -) 10 mg CONDITIONING ROOM WORKER CONDITIONING ROOM WORKER [facility] PRN Reason: Protocol Stop: 10/30/16 11:46 Last Admin: 10/27/16 13:00 Dose: 10 mg Cefazolin Sodium (Ancef 1gm Ivpb (Pre-Docked)) 50 mls @ 100 mls/hr IVPB BID [facility] Stop: 10/28/16 21:59 Last Admin: 10/28/16 09:14 Dose: 100 mls/hr Lactated Ringer's (Lactated Ringers Solution) 1,000 mls @ 125 mls/hr IV ASDIR [facility] Last Admin: 10/28/16 05:15 Dose: 125 mls/hr - Objective Vital Signs: Vital Signs Temperature 98.1 F 10/28/16 06:05 Pulse Rate 72 10/28/16 06:05 Respiratory Rate 18 10/28/16 06:05 Blood Pressure 123/68 10/28/16 06:05 O2 Sat by Pulse Oximetry (%) 92 L 10/27/16 21:00 Constitutional: Yes: No Distress, Calm Neck: Yes: Supple Cardiovascular: Yes: Regular Rate and Rhythm, Murmur (2/6 SM) Respiratory: Yes: Regular, Diminished Gastrointestinal: Yes: Soft, Hypoactive Bowel Sounds, Other (Post-op) Edema: No Labs: CBC, BMP 10/28/16 06:10 10/28/16 06:10 INR, PTT INR 1.16 (0.82-1.09) H 10/27/16 06:30 - ....Imaging EKG: Report Reviewed (NSR without ST-T changes) Problem List - Problems (1) Anemia associated with acute blood loss Code(s): D62 - ACUTE POSTHEMORRHAGIC ANEMIA (2) Syncope Code(s): R55 - SYNCOPE AND COLLAPSE Qualifiers: Syncope type: vasovagal syncope Qualified Code(s): R55 - Syncope and collapse (3) Atypical chest pain Code(s): R07.89 - OTHER CHEST PAIN (4) Coronary artery disease Code(s): I25.10 - ATHSCL HEART DISEASE OF [place] CORONARY ARTERY W/O ANG PCTRS Qualifiers: Coronary Disease-Associated Artery/Lesion type: [place] artery [place] vs. transplanted heart: [place] heart Associated angina: without angina Qualified Code(s): I25.10 - Atherosclerotic heart disease of [place] coronary artery without angina pectoris (5) Diabetes mellitus Code(s): E11.9 - TYPE 2 DIABETES MELLITUS WITHOUT COMPLICATIONS Qualifiers: Diabetes mellitus type: type 2 Diabetes mellitus complication status: without complication Diabetes mellitus group home insulin use: without pediatric critical care nurse use Qualified Code(s): E11.9 - Type 2 diabetes mellitus without complications (6) Diastolic dysfunction Code(s): I51.9 - HEART DISEASE, UNSPECIFIED (7) Hyperlipidemia Code(s): E78.5 - HYPERLIPIDEMIA, UNSPECIFIED Qualifiers: Hyperlipidemia type: pure hypercholesterolemia Qualified Code(s): E78.0 - Pure hypercholesterolemia (8) Hypertension Code(s): I10 - ESSENTIAL (PRIMARY) HYPERTENSION Qualifiers: Hypertension type: essential hypertension Qualified Code(s): I10 - Essential (primary) hypertension (9) Hypothyroidism Code(s): E03.9 - HYPOTHYROIDISM, UNSPECIFIED Qualifiers: Hypothyroidism type: unspecified Qualified Code(s): E03.9 - Hypothyroidism, unspecified (10) Paroxysmal atrial fibrillation Code(s): I48.0 - PAROXYSMAL ATRIAL FIBRILLATION (11) S/P Maze operation for atrial fibrillation Code(s): Z98.89 - OTHER SPECIFIED POSTPROCEDURAL STATES * DO NOT USE * Z86.79 - PERSONAL HISTORY OF OTHER DISEASES OF THE CIRCULATORY SYSTEM (12) S/P coronary artery bypass graft x 3 Code(s): Z95.1 - PRESENCE OF AORTOCORONARY BYPASS GRAFT (13) Status post coronary artery stent placement Code(s): Z95.5 - PRESENCE OF CORONARY ANGIOPLASTY IMPLANT AND GRAFT (14) Colonic mass Code(s): K63.9 - DISEASE OF INTESTINE, UNSPECIFIED (15) Status post right hemicolectomy Code(s): Z90.49 - ACQUIRED ABSENCE OF OTHER SPECIFIED PARTS OF DIGESTIVE TRACT Assessment/Plan 1. Anemia with history of hematochezia related to colonic adenocarcinoma s/p laparoscopic right hemicolectomy and liver biopsy stable CV-taylor 2. CAD post PCI/Stent/CABG angina pectoris - abnormal nuclear MPI 3. PAF post Cryo-Maze procedure, [id number] score of 4 on no A/C 4. Diastolic LV dysfunction with class 0 NYHA classification LV failure 5. HTN 6. DM 7. Hypercholesterolemia 8. Syncopal episode with prodromal symptoms most likely vasovagal etiology 9. Hypothyroidism PLAN: 1. Resume Sotalol, Lipitor and Losartan once oral intake re-established 2. Start NOAC once post-op hemostasis achieved, previously not on a/c due to hematochezia 3. Surgical post-op follow up, f/u pathology, analgesia as needed, OOB to chair 4. DVT and GI prophylaxis
[2016-10-28] MEDS: HYDROmorphone HCL CARPU-JECT 2 MG/1 ML DISP.SYRIN IVPB PRN (12:06)
--- NOTE | 2016-10-28 12:11 | OP ---
DATE OF OPERATION: 10/27/2016 PREOPERATIVE DIAGNOSIS: Lower gastrointestinal bleeding, adenocarcinoma of the hepatic flexure of the colon, and adenoma of the transverse colon. POSTOPERATIVE DIAGNOSIS: Lower gastrointestinal bleeding, adenocarcinoma of the hepatic flexure of the colon, and adenoma of the transverse colon. OPERATIVE PROCEDURE: Laparoscopically assisted extended right hemicolectomy, ileotransverse anastomosis, and wedge biopsy of the liver. SURGEON: Michelle Rubi MD EXERCISE SPECIALIST: JESSICA Jordan ANESTHESIA: General anesthesia. OPERATIVE DESCRIPTION: This 71-year-old man was admitted with lower GI bleeding. He was worked up and found to have adenocarcinoma of the hepatic flexure of the colon as well as an adenoma in the proximal to mid transverse colon. Both were stained by the GI endoscopist enabling to identify intraoperatively. Patient was medically worked up and optimized. He had history of cardiac disease and [place] with stenting and a CABG. He is also obese. Consent was obtained. Risks, benefits, and complications were discussed with the patient and the family. Patient had mechanical and antibiotic bowel prep and was brought to the operating room. General anesthesia was administered, and he was placed in the lithotomy position. The abdomen was painted and draped. A Dinh catheter was placed in the bladder, which will be removed in 24 hours. A 10-mm to 12-mm incision was made in the subxiphoid region of the abdomen, in the midline. The incision was deepened through the skin and subcutaneous tissue and the linea alba. A 10-mm to 12-mm laparoscopic trocar of the Heather type was introduced into the abdominal cavity, and the abdomen was inflated with carbon dioxide at 6 L per minute with maximum intraabdominal pressure of 15 mmHg. A 5-mm camera was introduced into the abdominal cavity. Under direct vision another 10-mm trocar was inserted just above the umbilicus. This was noted to enter the abdominal cavity under direct vision of the camera. Another 5-mm trocar was inserted in the midline in the suprapubic area, and a fourth trocar, another 5-mm, was inserted in the right lower quadrant of the abdomen. The camera was switched to the suprapubic port, and the cecum and ascending colon was identified. The cecum and ascending colon was then grasped with a 10-mm Elle through the two 10-mm port site, and the cecum and ascending colon were retracted anteriorly and towards the left, thus exposing the lateral peritoneal reflection of the cecum. Using a LigaSure, the lateral peritoneal reflection of the cecum and ascending colon was then incised and the cecum and ascending colon were mobilized medially all the way down to the hepatic flexure, so that the cecum and ascending colon could be retracted all the way to the left side of the abdomen. Inferiorly, the incision was carried around the cecum and the terminal ileum. It was completely mobilized. The patient also had thrombocytopenia, and there was a suspicion of mass in the caudate lobe of the liver. Once the cecum, ascending colon, terminal ileum, hepatic flexure were mobilized, the two 10-mm ports were connected with a midline incision of about 8 cm in length. The abdominal cavity was entered. The cecum, ascending colon, terminal ileum, along with the mesentery were brought out through the abdominal cavity. The hepatic flexure and the proximal transverse colon were also brought through this incision. The inked bowel was identified, and there was a small palpable tumor in the proximal inked area, which was around the hepatic flexure. The mass was soft and did not appear to go through the colonic wall. Once the mesentery was mobilized, the middle colic vessels were divided as close to its origin between silk sutures. The right colic vessel as well as the left colic vessel was also divided between ligatures. The distal terminal ileum was persistently adherent for about 5 to 6 cm and edematous. Therefore, line of resection proximal to it was obtained, and the terminal ileum was divided using the RAMONA stapling device, about 8 cm in length from the iliocecal valve. The greater omentum was also divided distal to the mid portion of the transverse colon using the LigaSure and ligating the vessels. The transverse colon was then divided about 8 cm to 10 cm away from the inked margin. This was then divided again using the RAMONA stapling device. The specimen consisting of the terminal ileum, cecum, ascending colon, hepatic flexure, and greater than half of the transverse colon was sent to Pathology, wherein the tumor and the adenoma were identified. The terminal ileum and the distal transverse colon were then approximated in a [id number]-rz-wxty fashion by placing it against each other, opening the anterior mesenteric judy of the terminal ileum and the transverse colon along the tenia coli. It was then placed side by side, and anastomosis using the RAMONA stapling device in a [id number]-[id number]-[id number] functional end-to-end manner. The open end of the small bowel and the transverse colon was then again closed and excised using the RAMONA stapling device. The anastomosis was adequate, so it was at least 4 cm and allowing two fingers to go through. A few interrupted seromuscular sutures of 3-0 silk were obtained. The anastomosis was adequate, staple line complete, and bowel was pink, viable, and with adequate bleeding from the staple line. Hemostasis was satisfactory. The mesentery of the bowel was approximated with interrupted and figure-of- eight 3-0 Vicryl sutures. Hemostasis was satisfactory. The NG tube was found in the body of the stomach. The liver grossly appeared normal. Wedge biopsy of the liver was obtained, first by using 0 chromic catgut sutures and suturing in a hemostatic manner with 3 sutures from the edge, one longitudinally around the length of the liver, another horizontally between them. After this, with a sharp knife, a 1 to 1.5- cm depth of liver from the edge was excised, and again about 1 to 1.5 cm in length. This was sent to Pathology. There was no bleeding from the cut surface. However, this was cauterized using electrocautery. Hemostasis was satisfactory. Estimated blood loss was between 50 to 100 mL. Sponge count and instrument count were correct. The abdominal cavity was irrigated with 2 L of normal saline. Also, it was evacuated. The abdomen was then closed with No. 1 looped PDS sutures in running continuous fashion. Skin was approximated with judy. Sponge count and instrument count were correct. Abdominal x-ray was obtained which showed no foreign body within the abdominal cavity. Patient tolerated the procedure well, was extubated, and sent to the recovery room in satisfactory and stable condition. Polina [id number] cc: MD ASYA Ortega
[2016-10-28 12:16] LABS: URINE APPEARANCE CLEAR; URINE BILIRUBIN NEGATIVE (NEGATIVE); URINE COLOR YELLOW; URINE GLUCOSE (UA) NEGATIVE (NEGATIVE); URINE KETONE TRACE (NEGATIVE); URINE NITRITE NEGATIVE (NEGATIVE); URINE UROBILINOGEN NEGATIVE E.U./dl (0.2-1.0)
[2016-10-28 12:20] LABS: URINE BLOOD 1+ (NEGATIVE); URINE LEUK ESTERASE 2+ (NEGATIVE); URINE PROTEIN 1+ (NEGATIVE)
[2016-10-28 12:29] LABS: URINE MUCUS RARE; URINE RBC 9 /hpf (0-3); URINE WBC 13 /hpf (3-5)
--- NOTE | 2016-10-28 17:21 | PN ---
Progress Note, Physician - Current Medication List Current Medications: Active Medications Heparin Sodium (Porcine) (Heparin -) 5,000 unit SQ BID [facility] Last Admin: 10/28/16 09:15 Dose: 5,000 unit Hydromorphone HCl (Dilaudid Injection -) 2 mg IVPB Q6H PRN PRN Reason: PAIN Last Admin: 10/28/16 12:06 Dose: 2 mg Cefazolin Sodium (Ancef 1gm Ivpb (Pre-Docked)) 50 mls @ 100 mls/hr IVPB BID [facility] Stop: 10/28/16 21:59 Last Admin: 10/28/16 09:14 Dose: 100 mls/hr Lactated Ringer's (Lactated Ringers Solution) 1,000 mls @ 125 mls/hr IV ASDIR [facility] Last Admin: 10/28/16 05:15 Dose: 125 mls/hr - Objective Vital Signs: Vital Signs Temperature 98.2 F 10/28/16 14:27 Pulse Rate 70 10/28/16 14:27 Respiratory Rate 16 10/28/16 14:27 Blood Pressure 142/64 10/28/16 14:27 O2 Sat by Pulse Oximetry (%) 92 L 10/28/16 10:00 Labs: CBC, BMP 10/28/16 06:10 10/28/16 06:10 INR, PTT INR 1.16 (0.82-1.09) H 10/27/16 06:30 Problem List - Problems (1) Colonic mass Code(s): K63.9 - DISEASE OF INTESTINE, UNSPECIFIED (2) Anemia associated with acute blood loss Code(s): D62 - ACUTE POSTHEMORRHAGIC ANEMIA (3) Obesity Code(s): E66.9 - OBESITY, UNSPECIFIED Qualifiers: Obesity type: due to excess calories Obesity severity: morbid Qualified Code(s): E66.01 - Morbid (severe) obesity due to excess calories (4) Coronary artery disease Code(s): I25.10 - ATHSCL HEART DISEASE OF [place] CORONARY ARTERY W/O ANG PCTRS Qualifiers: Coronary Disease-Associated Artery/Lesion type: [place] artery [place] vs. transplanted heart: [place] heart Associated angina: without angina Qualified Code(s): I25.10 - Atherosclerotic heart disease of [place] coronary artery without angina pectoris (5) Hypertension Code(s): I10 - ESSENTIAL (PRIMARY) HYPERTENSION Qualifiers: Hypertension type: essential hypertension Qualified Code(s): I10 - Essential (primary) hypertension (6) Thrombocytopenia Code(s): D69.6 - THROMBOCYTOPENIA, UNSPECIFIED Assessment/Plan Postop day1. Afebrile stable. Voiding, no calf tenderness. Surgical procedure explained. NG drainage 1250ml. Dvt prophylxis.
[2016-10-29] MEDS: HYDROmorphone HCL CARPU-JECT 2 MG/1 ML DISP.SYRIN IVPB PRN ×3 (01:57→21:06)
--- NOTE | 2016-10-29 09:35 | PN ---
Progress Note, Physician Chief Complaint: S/P Rt colectomy History of Present Illness: NGT draing a lot No BS - Current Medication List Current Medications: Active Medications Heparin Sodium (Porcine) (Heparin -) 5,000 unit SQ BID [facility] Last Admin: 10/28/16 21:36 Dose: 5,000 unit Hydromorphone HCl (Dilaudid Injection -) 2 mg IVPB Q6H PRN PRN Reason: PAIN Last Admin: 10/29/16 07:51 Dose: 2 mg Lactated Ringer's (Lactated Ringers Solution) 1,000 mls @ 125 mls/hr IV ASDIR [facility] Last Admin: 10/28/16 21:55 Dose: 125 mls/hr - Objective Vital Signs: Vital Signs Temperature 98.2 F 10/29/16 06:00 Pulse Rate 67 10/29/16 06:00 Respiratory Rate 18 10/29/16 06:00 Blood Pressure 152/74 10/29/16 06:00 O2 Sat by Pulse Oximetry (%) 89 L 10/28/16 21:00 Constitutional: Yes: Anxious Eyes: Yes: WNL HENT: Yes: WNL Neck: Yes: WNL Cardiovascular: Yes: Regular Rate and Rhythm, Other ( Had a short run of Vtac) Gastrointestinal: Yes: Soft, Hypoactive Bowel Sounds ...Rectal Exam: Yes: Deferred Wound/Incision: Yes: Clean/Dry Psychiatric: Yes: Alert Labs: CBC, BMP 10/28/16 06:10 10/28/16 06:10 INR, PTT INR 1.16 (0.82-1.09) H 10/27/16 06:30 Assessment/Plan As per Dr Rubi
[2016-10-29] MEDS: HEPARIN NA (PORCINE) 5,000 UNITS/ML 1ML VIAL SQ SCH ×2 (09:37→21:06)
--- NOTE | 2016-10-29 14:11 | PN ---
Progress Note, Physician History of Present Illness: s/p laparoscopic assisted right hemicolectomy with ileotransverse anastomosis. Liver biopsy. Post-op pain adequately controlled, passing flatus. Denies chest pain or dyspnea. Episodes of PAF on telemetry. - Current Medication List Current Medications: Active Medications Heparin Sodium (Porcine) (Heparin -) 5,000 unit SQ BID [facility] Last Admin: 10/29/16 09:37 Dose: 5,000 unit Hydromorphone HCl (Dilaudid Injection -) 2 mg IVPB Q6H PRN PRN Reason: PAIN Last Admin: 10/29/16 07:51 Dose: 2 mg Lactated Ringer's (Lactated Ringers Solution) 1,000 mls @ 125 mls/hr IV ASDIR [facility] Last Admin: 10/28/16 21:55 Dose: 125 mls/hr - Objective Vital Signs: Vital Signs Temperature 98.4 F 10/29/16 10:00 Pulse Rate 67 10/29/16 10:00 Respiratory Rate 18 10/29/16 10:00 Blood Pressure 142/88 10/29/16 10:00 O2 Sat by Pulse Oximetry (%) 89 L 10/29/16 10:00 Constitutional: Yes: No Distress, Calm Neck: Yes: Supple Cardiovascular: Yes: Regular Rate and Rhythm Respiratory: Yes: Regular, Diminished Gastrointestinal: Yes: Soft, Hypoactive Bowel Sounds, Other (Post-op) Edema: No Labs: CBC, BMP 10/28/16 06:10 10/28/16 06:10 INR, PTT INR 1.16 (0.82-1.09) H 10/27/16 06:30 Problem List - Problems (1) Anemia associated with acute blood loss Code(s): D62 - ACUTE POSTHEMORRHAGIC ANEMIA (2) Syncope Code(s): R55 - SYNCOPE AND COLLAPSE Qualifiers: Syncope type: vasovagal syncope Qualified Code(s): R55 - Syncope and collapse (3) Atypical chest pain Code(s): R07.89 - OTHER CHEST PAIN (4) Coronary artery disease Code(s): I25.10 - ATHSCL HEART DISEASE OF [place] CORONARY ARTERY W/O ANG PCTRS Qualifiers: Coronary Disease-Associated Artery/Lesion type: [place] artery [place] vs. transplanted heart: [place] heart Associated angina: without angina Qualified Code(s): I25.10 - Atherosclerotic heart disease of [place] coronary artery without angina pectoris (5) Diabetes mellitus Code(s): E11.9 - TYPE 2 DIABETES MELLITUS WITHOUT COMPLICATIONS Qualifiers: Diabetes mellitus type: type 2 Diabetes mellitus complication status: without complication Diabetes mellitus termite renewal inspector insulin use: without termite renewal inspector use Qualified Code(s): E11.9 - Type 2 diabetes mellitus without complications (6) Diastolic dysfunction Code(s): I51.9 - HEART DISEASE, UNSPECIFIED (7) Hyperlipidemia Code(s): E78.5 - HYPERLIPIDEMIA, UNSPECIFIED Qualifiers: Hyperlipidemia type: pure hypercholesterolemia Qualified Code(s): E78.0 - Pure hypercholesterolemia (8) Hypertension Code(s): I10 - ESSENTIAL (PRIMARY) HYPERTENSION Qualifiers: Hypertension type: essential hypertension Qualified Code(s): I10 - Essential (primary) hypertension (9) Hypothyroidism Code(s): E03.9 - HYPOTHYROIDISM, UNSPECIFIED Qualifiers: Hypothyroidism type: unspecified Qualified Code(s): E03.9 - Hypothyroidism, unspecified (10) Paroxysmal atrial fibrillation Code(s): I48.0 - PAROXYSMAL ATRIAL FIBRILLATION (11) S/P Maze operation for atrial fibrillation Code(s): Z98.89 - OTHER SPECIFIED POSTPROCEDURAL STATES * DO NOT USE * Z86.79 - PERSONAL HISTORY OF OTHER DISEASES OF THE CIRCULATORY SYSTEM (12) S/P coronary artery bypass graft x 3 Code(s): Z95.1 - PRESENCE OF AORTOCORONARY BYPASS GRAFT (13) Status post coronary artery stent placement Code(s): Z95.5 - PRESENCE OF CORONARY ANGIOPLASTY IMPLANT AND GRAFT (14) Colonic mass Code(s): K63.9 - DISEASE OF INTESTINE, UNSPECIFIED (15) Status post right hemicolectomy Code(s): Z90.49 - ACQUIRED ABSENCE OF OTHER SPECIFIED PARTS OF DIGESTIVE TRACT Assessment/Plan 1. Anemia with history of hematochezia related to colonic adenocarcinoma s/p laparoscopic right hemicolectomy and liver biopsy stable CV-taylor 2. CAD post PCI/Stent/CABG angina pectoris - abnormal nuclear MPI 3. PAF post Cryo-Maze procedure, [id number] score of 4 on no A/C 4. Diastolic LV dysfunction with class 0 NYHA classification LV failure 5. HTN 6. DM 7. Hypercholesterolemia 8. Syncopal episode with prodromal symptoms most likely vasovagal etiology 9. Hypothyroidism PLAN: 1. Resume Sotalol, Lipitor and Losartan once oral intake re-established 2. Start NOAC once post-op hemostasis achieved, previously not on a/c due to hematochezia 3. Surgical post-op follow up, f/u pathology, analgesia as needed, OOB to chair 4. DVT and GI prophylaxis
--- NOTE | 2016-10-29 15:53 | PN ---
Progress Note, Physician - Current Medication List Current Medications: Active Medications Heparin Sodium (Porcine) (Heparin -) 5,000 unit SQ BID [facility] Last Admin: 10/29/16 09:37 Dose: 5,000 unit Hydromorphone HCl (Dilaudid Injection -) 2 mg IVPB Q6H PRN PRN Reason: PAIN Last Admin: 10/29/16 07:51 Dose: 2 mg Lactated Ringer's (Lactated Ringers Solution) 1,000 mls @ 125 mls/hr IV ASDIR [facility] Last Admin: 10/28/16 21:55 Dose: 125 mls/hr - Objective Vital Signs: Vital Signs Temperature 98.6 F 10/29/16 15:43 Pulse Rate 76 10/29/16 15:43 Respiratory Rate 16 10/29/16 15:43 Blood Pressure 177/99 10/29/16 15:43 O2 Sat by Pulse Oximetry (%) 89 L 10/29/16 10:00 Labs: CBC, BMP 10/28/16 06:10 10/28/16 06:10 INR, PTT INR 1.16 (0.82-1.09) H 10/27/16 06:30 Problem List - Problems (1) Colonic mass Code(s): K63.9 - DISEASE OF INTESTINE, UNSPECIFIED (2) Anemia associated with acute blood loss Code(s): D62 - ACUTE POSTHEMORRHAGIC ANEMIA (3) Obesity Code(s): E66.9 - OBESITY, UNSPECIFIED Qualifiers: Obesity type: due to excess calories Obesity severity: morbid Qualified Code(s): E66.01 - Morbid (severe) obesity due to excess calories (4) Coronary artery disease Code(s): I25.10 - ATHSCL HEART DISEASE OF [place] CORONARY ARTERY W/O ANG PCTRS Qualifiers: Coronary Disease-Associated Artery/Lesion type: [place] artery [place] vs. transplanted heart: [place] heart Associated angina: without angina Qualified Code(s): I25.10 - Atherosclerotic heart disease of [place] coronary artery without angina pectoris (5) Hypertension Code(s): I10 - ESSENTIAL (PRIMARY) HYPERTENSION Qualifiers: Hypertension type: essential hypertension Qualified Code(s): I10 - Essential (primary) hypertension (6) Thrombocytopenia Code(s): D69.6 - THROMBOCYTOPENIA, UNSPECIFIED Assessment/Plan Surgery: Patient is alert , oriented. Comfortable. Abdomen is soft, not tender. Passing flatus. NG tube draining large amounts of gastric secretion. Will clamp NG tube and measure residue.\ No calf tenderness.
[2016-10-29] MEDS: LACTATED RINGERS SOLUTION 1,000 ML IV SCH (21:14)
[2016-10-30] MEDS: HYDROmorphone HCL CARPU-JECT 2 MG/1 ML DISP.SYRIN IVPB PRN ×2 (01:56→21:32)
--- NOTE | 2016-10-30 09:22 | PN ---
Progress Note, Physician History of Present Illness: S/P Rt colectomy Still draining a lot through NGT - Current Medication List Current Medications: Active Medications Heparin Sodium (Porcine) (Heparin -) 5,000 unit SQ BID [facility] Last Admin: 10/29/16 21:06 Dose: 5,000 unit Hydromorphone HCl (Dilaudid Injection -) 2 mg IVPB Q6H PRN PRN Reason: PAIN Last Admin: 10/30/16 01:56 Dose: 2 mg Lactated Ringer's (Lactated Ringers Solution) 1,000 mls @ 125 mls/hr IV ASDIR [facility] Last Admin: 10/29/16 21:14 Dose: 125 mls/hr - Objective Vital Signs: Vital Signs Temperature 97.9 F 10/30/16 05:35 Pulse Rate 62 10/30/16 05:35 Respiratory Rate 18 10/30/16 05:35 Blood Pressure 130/58 10/30/16 05:35 O2 Sat by Pulse Oximetry (%) 96 10/29/16 21:00 Constitutional: Yes: No Distress Eyes: Yes: WNL HENT: Yes: WNL, Tonsillar Exudate Cardiovascular: Yes: WNL Respiratory: Yes: WNL Gastrointestinal: Yes: Hyperactive Bowel Sounds ...Rectal Exam: Yes: Deferred Genitourinary: Yes: WNL Edema: No Neurological: Yes: Alert Labs: CBC, BMP 10/28/16 06:10 10/28/16 06:10 INR, PTT INR 1.16 (0.82-1.09) H 10/27/16 06:30 Assessment/Plan Continue IV fluids
[2016-10-30] MEDS: HEPARIN NA (PORCINE) 5,000 UNITS/ML 1ML VIAL SQ SCH ×2 (09:52→21:32)
--- NOTE | 2016-10-30 12:09 | PN ---
GI Progress Note Subjective: GI NOte: Looks great postop. NG has been clamped overnight. NO nausea, pain or bloating. Pathology still pending. - Objective Vital Signs: Vital Signs Temperature 97.9 F 10/30/16 05:35 Pulse Rate 62 10/30/16 05:35 Respiratory Rate 18 10/30/16 05:35 Blood Pressure 130/58 10/30/16 05:35 O2 Sat by Pulse Oximetry (%) 96 10/29/16 21:00 CBC, [facility] 10/28/16 06:10 10/28/16 06:10 Constitutional: No Distress, Other (NG in place) Gastrointestinal Inspection: Yes: Scars (healing vertical midline incision) ...Auscultate: Yes: Hypoactive Bowel Sounds ...Palpate: Yes: Soft Labs: CBC, [facility] 10/28/16 06:10 10/28/16 06:10 INR, PTT INR 1.16 (0.82-1.09) H 10/27/16 06:30 Assessment/Plan S/P right hemicolectomy for hepatic flexure cancer. Await final path to determine whether or not adjuvant therapy is needed and for status of the liver. Anticipate removal of NG and initiation of clear liquids but will defer this to Dr Rubi. Discussed situation with daughter. Problem List - Problems (1) Anemia associated with acute blood loss Code(s): D62 - ACUTE POSTHEMORRHAGIC ANEMIA (2) Abdominal pain Code(s): R10.9 - UNSPECIFIED ABDOMINAL PAIN (3) Gout Code(s): M10.9 - GOUT, UNSPECIFIED
--- NOTE | 2016-10-30 15:25 | PATH ---
Surgical Pathology Report Patient Name: DANYA VERDUZCO [facility]. Rec. #: [id number] /Age/Gender: 1945 (Age: 71) / M Account: [id number] Location: 4 SO PEDS/ADOL Taken: 10/27/2016 Received: 10/27/2016 Reported: 10/30/2016 Physicians: Polina Hoffman M.D. Specimen(s) Received A: RIGHT HEMICOLECTOMY B: LIVER WEDGE BIOPSY Clinical History Colon carcinoma Intraoperative Consult Diagnosis Right hemicolectomy: Tumor is grossly identified. Margins are grossly free of tumor. Dr. Lombardi on 10/27/16. Final Diagnosis A. COLON, RIGHT, HEMICOLECTOMY: COLONIC ADENOCARCINOMA, MODERATELY DIFFERENTIATED (LOW GRADE). TUMOR SIZE: 2.7 CM. TUMOR EXTENT: CARCINOMA INVADES DEEP INTO THE MUSCULARIS PROPRIA (pT2). SURGICAL RESECTION MARGINS: ALL RESECTION MARGINS INCLUDING PROXIMAL AND DISTAL MUCOSAL AND RADIAL NEGATIVE FOR CARCINOMA; CLOSEST RESECTION MARGIN (RADIAL) IS 3.0 CM AWAY FROM CARCINOMA. VENOUS INVASION: SUSPICIOUS. LYMPHOVASCULAR INVASION: NOT DEFINITIVELY IDENTIFIED. PERINEURAL INVASION: NOT DEFINITIVELY IDENTIFIED. DISCONTINEOUS TUMOR DEPOSITS: NOT IDENTIFIED. TUMOR PERFORATION: NOT IDENTIFIED. ASSOCIATED TATTOO SITE AND THREE ADDITIONAL TATTO SITES IDENTIFIED. SURROUNDING COLON: TUBULAR ADENOMA x3. APPENDIX: PARTIAL FIBROUS OBLITERATION. SMALL BOWEL: WITHOUT SIGNIFICANT PATHOLOGIC CHANGE. TWENTY NINE LYMPH NODES NEGATIVE FOR METASTATIC CARCINOMA (0/29). PATHOLOGIC STAGING: PRIMARY TUMOR: pT2 LYMPH NODES: pN0 Comment: Refer to [id number] for the prior biopsy result and DNA Mismatch Repair protein expression analysis by IHC results. B. LIVER, WEDGE BIOPSY: CHRONIC HEPATITIS WITH PREDOMINANT PATTERN OF STEATOHEPATITIS, MODERATELY ACTIVE; STEATOSIS (~40-50%). PERIPORTAL, PERIVENULAR AND PERISINUSOIDAL FIBROSIS WITH FOCAL BRIDGING AND FOCAL EARLY NODULE FORMATION (FAVOR STAGE 3 OF 4; EVALUATION OF FIBROSIS IS LIMITED BY THE SUBCAPSULAR NATURE OF THE TISSUE). SEE COMMENT. Comment: The liver architecture is partially disrupted by focal estela-central and estela-portal fibrous bands. The portal tracts show patchy moderate inflammation comprised of lymphocytes, histiocytes and scattered eosinophils. No increase in plasma cells is seen. There is focal minima to mild interface activity. No significant bile duct injury is noted. Focal ductular proliferation is seen. No portal granulomas are identified. The lobules show patchy inflammation comprised of lymphocytes, histiocytes, scattered eosinophils and neutrophils. Scattered acidophil bodies are noted. No definitive Julisa hyalin is identified. No definitive portal granulomas identified. There is predominantly microvesicular steatosis, present in approximately 40-50% of the biopsy material. Trichrome stain highlights periportal, perivenular, and perisinusoidal fibrosis with focal estela-central and estela-portal bridging and focal early nodule formation. Iron stain shows no siderosis. Other overt findings of chronic otitis is predominant steatohepatitis pattern, moderately active and steatosis (40%). The subcapsular nature of the specimen limits evaluation of fibrosis; however, periportal, perivenular and perisinusoidal fibrosis with focal bridging and focal nodule formation are seen (favor stage 3 of 4). The etiology of steatohepatitis includes alcohol and non-alcohol induced liver injury, including drugs/toxins and metabolic conditions. Although not specific, portal inflammation with focal mild interface activity may also be seen in other etiologic factors of chronic hepatitis and fibrosis. Clinical and serological correlations, inluding viral studies and autoantibodies, are suggested. The case was discussed with Dr. Rubi on 10/30/16. Comments Colorectal carcinoma : Surgical Pathology Cancer Case Summary (Checklist) Based on AJCC/UICC TNM, 7th edition Specimen: terminal ileum, appendix, cecum, right colon Procedure: Right hemicolectomy Tumor Site: Hepatic flexure Tumor Size Greatest dimension: 2.7 cm Macroscopic Tumor Perforation _x_ Not identified Histologic Type: adenocarcinoma Histologic Grade _x_ Low-grade (well-differentiated to moderately differentiated) Microscopic Tumor Extension _x_ Tumor invades muscularis propria Margins Proximal Margin _x_ Uninvolved by invasive carcinoma Distal Margin _x_ Uninvolved by invasive carcinoma Circumferential (Radial) or Mesenteric Margin _x_ Uninvolved by invasive carcinoma If all margins uninvolved by invasive carcinoma: Distance of invasive carcinoma from closest margin: 3.0 cm Specify margin: radial Lymph-Vascular Invasion (small vessels) _x_ Not definitively identified Large vessel (venous) Invasion _x_ Focally suspicious Perineural Invasion _x_ Not definitively identified Tumor Deposits (discontinuous extramural extension) _x_ Not identified Pathologic Staging (pTNM) Primary Tumor: pT2 Regional Lymph Nodes: pN0 Number examined: 29 Number involved: 0 Distant Metastasis (pM): not applicable Electronically Signed Moses Lombardi M.D. Gross Description A. Received fresh, labeled "right hemicolectomy" is a 20 cm in length portion of ileum with an attached 34 cm in length portion of cecum and right colon. The specimen displays 2 stapled mucosal margins as well is abundant attached pericolonic adipose tissue. There is a 28.0 x 13.0 x 1.8 cm portion of mesentery attached to the distal aspect of the specimen. The serosa is simon-clarke and smooth. There is an 8 cm in length unremarkable appendix attached at the cecum. The mucosa displays a 2.7 x 2.1 cm simon, polypoid lesion in the right colon. The lesion is at 17.5 cm from the distal mucosal margin of resection. The mass appears to invade into the muscularis. No definite invasion into the pericolonic adipose tissue is identified. The mass is at 3 cm from the mesenteric margin of resection. There are 2 additional polyps present in the right colon averaging 0.3 cm in greatest dimension. The polyps appear confined to the mucosa. The polyps are at 5.5 and 6.5 cm proximal to the mass. There are 4 separate dark areas distal to the mass that appear to have submucosal tattoos. The probable tattoos are at 1.5, 4.5, 6.5 and 7 cm distal to the mass. The remaining mucosa is simon with normal folds. Sectioning of the pericolonic adipose tissue reveals multiple simon, irregular lymph nodes. An intraoperative gross examination is performed on the specimen. [employer] sections are submitted in 36 cassettes as follows: 1-proximal mucosal margin of resection; 2-distal mucosal margin of resection; 3-shave of mesenteric margin closest to mass; 4-appendix; 5-7-mass; 8-proximal mucosal polyps; 3-80-gjzgxidb tattoos sequentially submitted from proximal to distal; 13-uninvolved cecum; 14-uninvolved distal right colon; 15-uninvolved ileum; 16-30-one whole bisected lymph node each; 31-33-one whole trisected lymph node each; 73-81-jnpactgg whole possible lymph nodes. B. Received in formalin, labeled "liver biopsy" is a 1.3 x 1.1 x 0.4 cm simon, irregular portion of liver. The specimen is bisected and entirely submitted in one cassette. 10/27/2016 saudi10/27/2016
--- NOTE | 2016-10-30 15:26 | PN ---
Progress Note, Physician History of Present Illness: s/p laparoscopic assisted right hemicolectomy with ileotransverse anastomosis. Liver biopsy. Post-op pain adequately controlled, passing flatus. Denies chest pain or dyspnea. Episodes of PAF on telemetry. - Current Medication List Current Medications: Active Medications Heparin Sodium (Porcine) (Heparin -) 5,000 unit SQ BID [facility] Last Admin: 10/30/16 09:52 Dose: 5,000 unit Hydromorphone HCl (Dilaudid Injection -) 2 mg IVPB Q6H PRN PRN Reason: PAIN Last Admin: 10/30/16 01:56 Dose: 2 mg Lactated Ringer's (Lactated Ringers Solution) 1,000 mls @ 125 mls/hr IV ASDIR [facility] Last Admin: 10/29/16 21:14 Dose: 125 mls/hr - Objective Vital Signs: Vital Signs Temperature 98.0 F 10/30/16 14:00 Pulse Rate 76 10/30/16 14:00 Respiratory Rate 20 10/30/16 14:00 Blood Pressure 149/74 10/30/16 14:00 O2 Sat by Pulse Oximetry (%) 96 10/30/16 09:00 Constitutional: Yes: No Distress, Calm Neck: Yes: Supple Cardiovascular: Yes: Regular Rate and Rhythm Respiratory: Yes: Regular, Diminished Gastrointestinal: Yes: Soft, Abdomen, Obese, Hypoactive Bowel Sounds Edema: No Labs: CBC, BMP 10/28/16 06:10 10/28/16 06:10 INR, PTT INR 1.16 (0.82-1.09) H 10/27/16 06:30 Problem List - Problems (1) Anemia associated with acute blood loss Code(s): D62 - ACUTE POSTHEMORRHAGIC ANEMIA (2) Syncope Code(s): R55 - SYNCOPE AND COLLAPSE Qualifiers: Syncope type: vasovagal syncope Qualified Code(s): R55 - Syncope and collapse (3) Atypical chest pain Code(s): R07.89 - OTHER CHEST PAIN (4) Coronary artery disease Code(s): I25.10 - ATHSCL HEART DISEASE OF [place] CORONARY ARTERY W/O ANG PCTRS Qualifiers: Coronary Disease-Associated Artery/Lesion type: [place] artery [place] vs. transplanted heart: [place] heart Associated angina: without angina Qualified Code(s): I25.10 - Atherosclerotic heart disease of [place] coronary artery without angina pectoris (5) Diabetes mellitus Code(s): E11.9 - TYPE 2 DIABETES MELLITUS WITHOUT COMPLICATIONS Qualifiers: Diabetes mellitus type: type 2 Diabetes mellitus complication status: without complication Diabetes mellitus terminal make up operator insulin use: without fci use Qualified Code(s): E11.9 - Type 2 diabetes mellitus without complications (6) Diastolic dysfunction Code(s): I51.9 - HEART DISEASE, UNSPECIFIED (7) Hyperlipidemia Code(s): E78.5 - HYPERLIPIDEMIA, UNSPECIFIED Qualifiers: Hyperlipidemia type: pure hypercholesterolemia Qualified Code(s): E78.0 - Pure hypercholesterolemia (8) Hypertension Code(s): I10 - ESSENTIAL (PRIMARY) HYPERTENSION Qualifiers: Hypertension type: essential hypertension Qualified Code(s): I10 - Essential (primary) hypertension (9) Hypothyroidism Code(s): E03.9 - HYPOTHYROIDISM, UNSPECIFIED Qualifiers: Hypothyroidism type: unspecified Qualified Code(s): E03.9 - Hypothyroidism, unspecified (10) Paroxysmal atrial fibrillation Code(s): I48.0 - PAROXYSMAL ATRIAL FIBRILLATION (11) S/P Maze operation for atrial fibrillation Code(s): Z98.89 - OTHER SPECIFIED POSTPROCEDURAL STATES * DO NOT USE * Z86.79 - PERSONAL HISTORY OF OTHER DISEASES OF THE CIRCULATORY SYSTEM (12) S/P coronary artery bypass graft x 3 Code(s): Z95.1 - PRESENCE OF AORTOCORONARY BYPASS GRAFT (13) Status post coronary artery stent placement Code(s): Z95.5 - PRESENCE OF CORONARY ANGIOPLASTY IMPLANT AND GRAFT (14) Colonic mass Code(s): K63.9 - DISEASE OF INTESTINE, UNSPECIFIED (15) Status post right hemicolectomy Code(s): Z90.49 - ACQUIRED ABSENCE OF OTHER SPECIFIED PARTS OF DIGESTIVE TRACT Assessment/Plan 1. Anemia with history of hematochezia s/p laparoscopic right hemicolectomy for hepatic flexure cancer and liver biopsy stable CV-taylor 2. CAD post PCI/Stent/CABG angina pectoris - abnormal nuclear MPI 3. PAF post Cryo-Maze procedure, [id number] score of 4 on no A/C 4. Diastolic LV dysfunction with class 0 NYHA classification LV failure 5. HTN 6. DM 7. Hypercholesterolemia 8. Syncopal episode with prodromal symptoms most likely vasovagal etiology 9. Hypothyroidism PLAN: 1. Resume Sotalol, Lipitor and Losartan once oral intake re-established 2. Start NOAC once post-op hemostasis achieved, previously not on a/c due to hematochezia 3. Surgical post-op follow up, f/u pathology, analgesia as needed, OOB to chair 4. DVT and GI prophylaxis
--- NOTE | 2016-10-30 16:05 | PN ---
Progress Note (short form) - Note Progress Note: Patient seen and examined Complains of pain from NG in back of throat Last Vital Signs Temp Pulse Resp BP Pulse Ox 98.0 F 76 20 149/74 96 10/30/16 14:00 10/30/16 14:00 10/30/16 14:00 10/30/16 14:00 10/30/16 09:00 HEENT: VIVIANA, EOM Intact Oropharynx: No thrush, No mucositisNG tube Cor: RSR, No murmurs, No gallops Lungs: Clear to P&A Abd: Soft, Normal bowel sounds, No organomegaly Ext:No significant edema Skin: No rashes, Integument intact CBC, BMP 10/28/16 06:10 10/28/16 06:10 Current Medications Generic Name Dose Route Start Last Admin Trade Name Freq PRN Reason Stop Dose Admin Heparin Sodium (Porcine) 5,000 unit 10/28/16 10:00 10/30/16 09:52 Heparin - SQ 5,000 unit BID [facility] Administration Hydromorphone HCl 2 mg 10/28/16 11:49 10/30/16 01:56 Dilaudid Injection - IVPB 2 mg Q6H PRN Administration PAIN Lactated Ringer's 1,000 mls @ 125 mls/hr 10/27/16 12:00 10/29/16 21:14 Lactated Ringers Solution IV 125 mls/hr ASDIR [facility] Administration Impression: S/P laparoscopic colon resection Awaiting pathology. Problem List - Problems (1) Colonic mass Code(s): K63.9 - DISEASE OF INTESTINE, UNSPECIFIED (2) Thrombocytopenia Code(s): D69.6 - THROMBOCYTOPENIA, UNSPECIFIED (3) Rectal bleed Code(s): K62.5 - HEMORRHAGE OF ANUS AND RECTUM
--- NOTE | 2016-10-30 16:55 | PN ---
Progress Note, Physician - Current Medication List Current Medications: Active Medications Heparin Sodium (Porcine) (Heparin -) 5,000 unit SQ BID [facility] Last Admin: 10/30/16 09:52 Dose: 5,000 unit Hydromorphone HCl (Dilaudid Injection -) 2 mg IVPB Q6H PRN PRN Reason: PAIN Last Admin: 10/30/16 01:56 Dose: 2 mg Lactated Ringer's (Lactated Ringers Solution) 1,000 mls @ 125 mls/hr IV ASDIR [facility] Last Admin: 10/29/16 21:14 Dose: 125 mls/hr - Objective Vital Signs: Vital Signs Temperature 98.0 F 10/30/16 14:00 Pulse Rate 76 10/30/16 14:00 Respiratory Rate 20 10/30/16 14:00 Blood Pressure 149/74 10/30/16 14:00 O2 Sat by Pulse Oximetry (%) 96 10/30/16 09:00 Labs: CBC, BMP 10/28/16 06:10 10/28/16 06:10 INR, PTT INR 1.16 (0.82-1.09) H 10/27/16 06:30 Problem List - Problems (1) Colonic mass Code(s): K63.9 - DISEASE OF INTESTINE, UNSPECIFIED (2) Anemia associated with acute blood loss Code(s): D62 - ACUTE POSTHEMORRHAGIC ANEMIA (3) Obesity Code(s): E66.9 - OBESITY, UNSPECIFIED Qualifiers: Obesity type: due to excess calories Obesity severity: morbid Qualified Code(s): E66.01 - Morbid (severe) obesity due to excess calories (4) Coronary artery disease Code(s): I25.10 - ATHSCL HEART DISEASE OF [place] CORONARY ARTERY W/O ANG PCTRS Qualifiers: Coronary Disease-Associated Artery/Lesion type: [place] artery [place] vs. transplanted heart: [place] heart Associated angina: without angina Qualified Code(s): I25.10 - Atherosclerotic heart disease of [place] coronary artery without angina pectoris (5) Hypertension Code(s): I10 - ESSENTIAL (PRIMARY) HYPERTENSION Qualifiers: Hypertension type: essential hypertension Qualified Code(s): I10 - Essential (primary) hypertension (6) Thrombocytopenia Code(s): D69.6 - THROMBOCYTOPENIA, UNSPECIFIED Assessment/Plan Surgery: Patient is afebrile, wound is clean. Pathology T2,N0,M0 Remove NG tube, resume oral feeding. Patient is informed of findings. Liver biopsy suggestive of hepatocellular disease.
--- NOTE | 2016-10-30 17:02 | PN ---
Progress Note (short form) - Note Progress Note: Path- T2 lesion No evidence that there is benefit of chemotherapy in this setting. Discussed with patient and with Dr. Rubi. Serial monitoring with colonoscopy q year, CT q year and CEA and LFT's q 3 months. Problem List - Problems (1) Colonic mass Code(s): K63.9 - DISEASE OF INTESTINE, UNSPECIFIED (2) Thrombocytopenia Code(s): D69.6 - THROMBOCYTOPENIA, UNSPECIFIED (3) Rectal bleed Code(s): K62.5 - HEMORRHAGE OF ANUS AND RECTUM
[2016-10-30] MEDS: PANTOPRAZOLE 20 MG TABLET (FP) PO SCH (21:31)
[2016-10-30] MEDS: SOTALOL HCL 80 MG TABLET (FP) PO SCH (21:32)
[2016-10-30] MEDS: LACTATED RINGERS SOLUTION 1,000 ML IV SCH (21:35)
[2016-10-31] MEDS: LACTATED RINGERS SOLUTION 1,000 ML IV SCH (03:11)
[2016-10-31] MEDS ORDERED: ONDANSETRON 4 MG/2 ML VIAL IVPB ONE (04:00)
[2016-10-31 07:23] LABS: ALBUMIN 2.7 g/dl (3.4-5.0); ANION GAP 7 (8-16); BILIRUBIN,TOTAL 0.6 mg/dL (0.2-1.0); CALCIUM 8.3 mg/dL (8.5-10.1); CO2 27 mmol/L (21-32); GLUCOSE,RANDOM 124 mg/dL (74-106); SGOT/AST 17 U/L (15-37); SGPT/ALT 29 U/L (12-78); TOT PROT 5.7 g/dl (6.4-8.2)
[2016-10-31 07:24] LABS: ALK PHOS 53 U/L (45-117)
--- NOTE | 2016-10-31 08:28 | PN ---
Progress Note, Physician Chief Complaint: C/O nausea History of Present Illness: Advised flat plate abdomen - Current Medication List Current Medications: Active Medications Finasteride (Proscar -) 5 mg PO DAILY [facility] Heparin Sodium (Porcine) (Heparin -) 5,000 unit SQ BID [facility] Last Admin: 10/30/16 21:32 Dose: 5,000 unit Hydromorphone HCl (Dilaudid Injection -) 2 mg IVPB Q6H PRN PRN Reason: PAIN Last Admin: 10/30/16 21:32 Dose: 2 mg Lactated Ringer's (Lactated Ringers Solution) 1,000 mls @ 125 mls/hr IV ASDIR [facility] Last Admin: 10/31/16 03:11 Dose: 125 mls/hr Losartan Potassium (Cozaar -) 25 mg PO DAILY [facility] Pantoprazole Sodium (Protonix -) 20 mg PO BID [facility] Last Admin: 10/30/16 21:31 Dose: 20 mg Paroxetine HCl (Paxil -) 10 mg PO DAILY [facility] Sotalol HCl (Betapace -) 80 mg PO BID [facility] Last Admin: 10/30/16 21:32 Dose: 80 mg Tamsulosin HCl (Flomax -) 0.4 mg PO DAILY@0830 [facility] - Objective Vital Signs: Vital Signs Temperature 98.2 F 10/31/16 06:00 Pulse Rate 53 L 10/31/16 06:00 Respiratory Rate 20 10/31/16 06:00 Blood Pressure 116/58 10/31/16 06:00 O2 Sat by Pulse Oximetry (%) 95 10/30/16 21:00 Constitutional: Yes: Mild Distress Eyes: Yes: WNL HENT: Yes: WNL Neck: Yes: WNL Cardiovascular: Yes: WNL Respiratory: Yes: WNL Gastrointestinal: Yes: Hypoactive Bowel Sounds ...Rectal Exam: Yes: Deferred Genitourinary: Yes: WNL Extremities: Yes: WNL Edema: No Wound/Incision: Yes: Open to air Neurological: Yes: Alert Labs: CBC, BMP 10/31/16 06:00 INR, PTT INR 1.16 (0.82-1.09) H 10/27/16 06:30 Assessment/Plan Will evaluate Xray
[2016-10-31] MEDS: SOTALOL HCL 80 MG TABLET (FP) PO SCH ×2 (09:56→21:42)
[2016-10-31] MEDS: PARoxetine HCL 10 MG TABLET (FP) PO SCH (09:56)
[2016-10-31] MEDS: TAMSULOSIN HCL 0.4 MG CAP.ER.24H (FP) PO SCH (09:56)
[2016-10-31] MEDS: PANTOPRAZOLE 20 MG TABLET (FP) PO SCH ×2 (09:56→21:42)
[2016-10-31] MEDS: LOSARTAN POTASSIUM 25 MG TABLET PO SCH (09:56)
[2016-10-31] MEDS: FINASTERIDE 5 MG TABLET (FP) PO SCH (09:57)
[2016-10-31] MEDS: HEPARIN NA (PORCINE) 5,000 UNITS/ML 1ML VIAL SQ SCH ×2 (09:57→21:42)
[2016-10-31 13:36] LABS: MCH 21.2 pg (25.7-33.7); MCHC 30.1 g/dl (32.0-35.9); MEAN CELL VOLUME 70.4 fl (80-96); MEAN PLT VOLUME 9.7 fl (7.5-11.1); PLATELET COUNT 147 K/MM3 (134-434); RDW 16.3 % (11.9-15.9); WHITE BLOOD COUNT 7.3 K/mm3 (4.0-10.0)
--- NOTE | 2016-10-31 14:16 | PN ---
Progress Note, Physician Chief Complaint: Not in distress History of Present Illness: Patient was seen and examined. Awake and alert. Chart was reviewed Denies chest pain, SOB or palpitations - Current Medication List Current Medications: Active Medications Finasteride (Proscar -) 5 mg PO DAILY [facility] Last Admin: 10/31/16 09:57 Dose: 5 mg Heparin Sodium (Porcine) (Heparin -) 5,000 unit SQ BID [facility] Last Admin: 10/31/16 09:57 Dose: 5,000 unit Lactated Ringer's (Lactated Ringers Solution) 1,000 mls @ 125 mls/hr IV ASDIR [facility] Last Admin: 10/31/16 03:11 Dose: 125 mls/hr Losartan Potassium (Cozaar -) 25 mg PO DAILY [facility] Last Admin: 10/31/16 09:56 Dose: 25 mg Pantoprazole Sodium (Protonix -) 20 mg PO BID [facility] Last Admin: 10/31/16 09:56 Dose: 20 mg Paroxetine HCl (Paxil -) 10 mg PO DAILY [facility] Last Admin: 10/31/16 09:56 Dose: 10 mg Sotalol HCl (Betapace -) 80 mg PO BID [facility] Last Admin: 10/31/16 09:56 Dose: 80 mg Tamsulosin HCl (Flomax -) 0.4 mg PO DAILY@0830 [facility] Last Admin: 10/31/16 09:56 Dose: 0.4 mg - Objective Vital Signs: Vital Signs Temperature 97.8 F 10/31/16 10:00 Pulse Rate 68 10/31/16 10:00 Respiratory Rate 20 10/31/16 10:00 Blood Pressure 110/50 10/31/16 10:00 O2 Sat by Pulse Oximetry (%) 95 10/31/16 10:00 Neck: Yes: Supple Cardiovascular: Yes: Regular Rate and Rhythm, S1, S2 Respiratory: Yes: CTA Bilaterally Gastrointestinal: Yes: Soft. No: Tenderness Edema: No Additional Findings/Remarks: - Review of Systems Constitutional: no symptoms reported Respiratory: denies Cough or Sputum Production Cardiovascular: as noted above Gastrointestinal: denies Nausea, Vomiting, Diarrhea, Constipation or Abdominal Pain Genitourinary: no symptoms reported Musculoskeletal: no symptoms reported Labs: CBC, BMP 10/31/16 06:00 10/31/16 06:00 Problem List - Problems (1) Anemia associated with acute blood loss Code(s): D62 - ACUTE POSTHEMORRHAGIC ANEMIA (2) Colonic mass Code(s): K63.9 - DISEASE OF INTESTINE, UNSPECIFIED (3) Syncope Code(s): R55 - SYNCOPE AND COLLAPSE Qualifiers: Syncope type: vasovagal syncope Qualified Code(s): R55 - Syncope and collapse (4) Coronary artery disease Code(s): I25.10 - ATHSCL HEART DISEASE OF [place] CORONARY ARTERY W/O ANG PCTRS Qualifiers: Coronary Disease-Associated Artery/Lesion type: [place] artery [place] vs. transplanted heart: [place] heart Associated angina: without angina Qualified Code(s): I25.10 - Atherosclerotic heart disease of [place] coronary artery without angina pectoris (5) Diabetes mellitus Code(s): E11.9 - TYPE 2 DIABETES MELLITUS WITHOUT COMPLICATIONS Qualifiers: Diabetes mellitus type: type 2 Diabetes mellitus complication status: without complication Diabetes mellitus custodial insulin use: without terminal superintendent use Qualified Code(s): E11.9 - Type 2 diabetes mellitus without complications (6) Diastolic dysfunction Code(s): I51.9 - HEART DISEASE, UNSPECIFIED (7) Hyperlipidemia Code(s): E78.5 - HYPERLIPIDEMIA, UNSPECIFIED Qualifiers: Hyperlipidemia type: pure hypercholesterolemia Qualified Code(s): E78.0 - Pure hypercholesterolemia (8) Hypertension Code(s): I10 - ESSENTIAL (PRIMARY) HYPERTENSION Qualifiers: Hypertension type: essential hypertension Qualified Code(s): I10 - Essential (primary) hypertension (9) Paroxysmal atrial fibrillation Code(s): I48.0 - PAROXYSMAL ATRIAL FIBRILLATION (10) S/P Maze operation for atrial fibrillation Code(s): Z98.89 - OTHER SPECIFIED POSTPROCEDURAL STATES * DO NOT USE * Z86.79 - PERSONAL HISTORY OF OTHER DISEASES OF THE CIRCULATORY SYSTEM (11) S/P coronary artery bypass graft x 3 Code(s): Z95.1 - PRESENCE OF AORTOCORONARY BYPASS GRAFT (12) Status post coronary artery stent placement Code(s): Z95.5 - PRESENCE OF CORONARY ANGIOPLASTY IMPLANT AND GRAFT Assessment/Plan 1. 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 CAD post PCI/Stent/CABG angina pectoris - abnormal nuclear MPI 3. PAF post Cryo-Maze procedure, [id number] score of 4 on no A/C 4. Diastolic LV dysfunction with class 0 NYHA classification LV failure 5. HTN 6. DM 7. Hypercholesterolemia 8. Syncopal episode with prodromal symptoms most likely vasovagal etiology 9. Hypothyroidism PLAN: 1. Continue Sotalol and Losartan 2. Continue Lipitor 3. ASA has been held for surgery, but should be restarted when cleared 4. Surgery follow up Further plans are to follow James Killian MD
--- NOTE | 2016-10-31 15:38 | PN ---
Progress Note, Physician - Current Medication List Current Medications: Active Medications Finasteride (Proscar -) 5 mg PO DAILY [facility] Last Admin: 10/31/16 09:57 Dose: 5 mg Heparin Sodium (Porcine) (Heparin -) 5,000 unit SQ BID [facility] Last Admin: 10/31/16 09:57 Dose: 5,000 unit Lactated Ringer's (Lactated Ringers Solution) 1,000 mls @ 125 mls/hr IV ASDIR [facility] Last Admin: 10/31/16 03:11 Dose: 125 mls/hr Losartan Potassium (Cozaar -) 25 mg PO DAILY [facility] Last Admin: 10/31/16 09:56 Dose: 25 mg Pantoprazole Sodium (Protonix -) 20 mg PO BID [facility] Last Admin: 10/31/16 09:56 Dose: 20 mg Paroxetine HCl (Paxil -) 10 mg PO DAILY [facility] Last Admin: 10/31/16 09:56 Dose: 10 mg Sotalol HCl (Betapace -) 80 mg PO BID [facility] Last Admin: 10/31/16 09:56 Dose: 80 mg Tamsulosin HCl (Flomax -) 0.4 mg PO DAILY@0830 [facility] Last Admin: 10/31/16 09:56 Dose: 0.4 mg - Objective Vital Signs: Vital Signs Temperature 97.8 F 10/31/16 10:00 Pulse Rate 68 10/31/16 10:00 Respiratory Rate 20 10/31/16 10:00 Blood Pressure 110/50 10/31/16 10:00 O2 Sat by Pulse Oximetry (%) 95 10/31/16 10:00 Labs: CBC, BMP 10/31/16 06:00 10/31/16 06:00 INR, PTT INR 1.16 (0.82-1.09) H 10/27/16 06:30 Problem List - Problems (1) Colonic mass Code(s): K63.9 - DISEASE OF INTESTINE, UNSPECIFIED (2) Anemia associated with acute blood loss Code(s): D62 - ACUTE POSTHEMORRHAGIC ANEMIA (3) Obesity Code(s): E66.9 - OBESITY, UNSPECIFIED Qualifiers: Obesity type: due to excess calories Obesity severity: morbid Qualified Code(s): E66.01 - Morbid (severe) obesity due to excess calories (4) Coronary artery disease Code(s): I25.10 - ATHSCL HEART DISEASE OF [place] CORONARY ARTERY W/O ANG PCTRS Qualifiers: Coronary Disease-Associated Artery/Lesion type: [place] artery [place] vs. transplanted heart: [place] heart Associated angina: without angina Qualified Code(s): I25.10 - Atherosclerotic heart disease of [place] coronary artery without angina pectoris (5) Hypertension Code(s): I10 - ESSENTIAL (PRIMARY) HYPERTENSION Qualifiers: Hypertension type: essential hypertension Qualified Code(s): I10 - Essential (primary) hypertension (6) Thrombocytopenia Code(s): D69.6 - THROMBOCYTOPENIA, UNSPECIFIED Assessment/Plan Surgery: Patient is afebrile, was nauseous lest night, but feels better now. He has been passing flatus. Abdomen is soft, no distention. Wound is clean. Will resume feedimng. X-ray of abdomen, shows some dilated loops of small bowel, in left upper quadrant. ? Partial intestinal ilius. Will resume diet.
[2016-10-31] MEDS ORDERED: HYDROmorphone HCL CARPU-JECT 1 MG/1 ML DISP.SYRIN IVPB ONE (23:00)
[2016-11-01] MEDS: LACTATED RINGERS SOLUTION 1,000 ML IV SCH (00:57)
[2016-11-01 06:08] VITALS: BP 145/67; PULSE 51; TEMP 98.2
[2016-11-01] MEDS: PARoxetine HCL 10 MG TABLET (FP) PO SCH (09:19)
[2016-11-01] MEDS: TAMSULOSIN HCL 0.4 MG CAP.ER.24H (FP) PO SCH (09:19)
[2016-11-01] MEDS: SOTALOL HCL 80 MG TABLET (FP) PO SCH (09:19)
[2016-11-01] MEDS: FINASTERIDE 5 MG TABLET (FP) PO SCH (09:19)
[2016-11-01] MEDS: PANTOPRAZOLE 20 MG TABLET (FP) PO SCH (09:19)
[2016-11-01] MEDS: LOSARTAN POTASSIUM 25 MG TABLET PO SCH (09:19)
[2016-11-01] MEDS: HEPARIN NA (PORCINE) 5,000 UNITS/ML 1ML VIAL SQ SCH (09:20)
--- NOTE | 2016-11-01 10:30 | PN ---
Progress Note, Physician Chief Complaint: Not in distress History of Present Illness: Patient was seen and examined. Awake and alert. Chart was reviewed Denies chest pain, SOB or palpitations - Current Medication List Current Medications: Active Medications Finasteride (Proscar -) 5 mg PO DAILY [facility] Last Admin: 11/01/16 09:19 Dose: 5 mg Heparin Sodium (Porcine) (Heparin -) 5,000 unit SQ BID [facility] Last Admin: 11/01/16 09:20 Dose: 5,000 unit Lactated Ringer's (Lactated Ringers Solution) 1,000 mls @ 125 mls/hr IV ASDIR [facility] Last Admin: 11/01/16 00:57 Dose: 125 mls/hr Losartan Potassium (Cozaar -) 25 mg PO DAILY [facility] Last Admin: 11/01/16 09:19 Dose: 25 mg Pantoprazole Sodium (Protonix -) 20 mg PO BID [facility] Last Admin: 11/01/16 09:19 Dose: 20 mg Paroxetine HCl (Paxil -) 10 mg PO DAILY [facility] Last Admin: 11/01/16 09:19 Dose: 10 mg Sotalol HCl (Betapace -) 80 mg PO BID [facility] Last Admin: 11/01/16 09:19 Dose: 80 mg Tamsulosin HCl (Flomax -) 0.4 mg PO DAILY@0830 [facility] Last Admin: 11/01/16 09:19 Dose: 0.4 mg - Objective Vital Signs: Vital Signs Temperature 98.2 F 11/01/16 06:00 Pulse Rate 51 L 11/01/16 06:00 Respiratory Rate 18 11/01/16 06:00 Blood Pressure 145/67 11/01/16 06:00 O2 Sat by Pulse Oximetry (%) 95 10/31/16 22:00 Neck: Yes: Supple Cardiovascular: Yes: Regular Rate and Rhythm, S1, S2 Respiratory: Yes: CTA Bilaterally Gastrointestinal: Yes: Normal Bowel Sounds, Soft. No: Tenderness Edema: No Additional Findings/Remarks: - Review of Systems Constitutional: no symptoms reported Respiratory: denies Cough or Sputum Production Cardiovascular: as noted above Gastrointestinal: denies Nausea, Vomiting, Diarrhea, Constipation or Abdominal Pain Genitourinary: no symptoms reported Musculoskeletal: no symptoms reported Labs: CBC, BMP 10/31/16 06:00 10/31/16 06:00 Problem List - Problems (1) Anemia associated with acute blood loss Code(s): D62 - ACUTE POSTHEMORRHAGIC ANEMIA (2) Colonic mass Code(s): K63.9 - DISEASE OF INTESTINE, UNSPECIFIED (3) Syncope Code(s): R55 - SYNCOPE AND COLLAPSE Qualifiers: Syncope type: vasovagal syncope Qualified Code(s): R55 - Syncope and collapse (4) Coronary artery disease Code(s): I25.10 - ATHSCL HEART DISEASE OF [place] CORONARY ARTERY W/O ANG PCTRS Qualifiers: Coronary Disease-Associated Artery/Lesion type: [place] artery [place] vs. transplanted heart: [place] heart Associated angina: without angina Qualified Code(s): I25.10 - Atherosclerotic heart disease of [place] coronary artery without angina pectoris (5) Diabetes mellitus Code(s): E11.9 - TYPE 2 DIABETES MELLITUS WITHOUT COMPLICATIONS Qualifiers: Diabetes mellitus type: type 2 Diabetes mellitus complication status: without complication Diabetes mellitus usp insulin use: without intermodal dispatcher use Qualified Code(s): E11.9 - Type 2 diabetes mellitus without complications (6) Diastolic dysfunction Code(s): I51.9 - HEART DISEASE, UNSPECIFIED (7) Hyperlipidemia Code(s): E78.5 - HYPERLIPIDEMIA, UNSPECIFIED Qualifiers: Hyperlipidemia type: pure hypercholesterolemia Qualified Code(s): E78.0 - Pure hypercholesterolemia (8) Hypertension Code(s): I10 - ESSENTIAL (PRIMARY) HYPERTENSION Qualifiers: Hypertension type: essential hypertension Qualified Code(s): I10 - Essential (primary) hypertension (9) Paroxysmal atrial fibrillation Code(s): I48.0 - PAROXYSMAL ATRIAL FIBRILLATION (10) S/P Maze operation for atrial fibrillation Code(s): Z98.89 - OTHER SPECIFIED POSTPROCEDURAL STATES * DO NOT USE * Z86.79 - PERSONAL HISTORY OF OTHER DISEASES OF THE CIRCULATORY SYSTEM (11) S/P coronary artery bypass graft x 3 Code(s): Z95.1 - PRESENCE OF AORTOCORONARY BYPASS GRAFT (12) Status post coronary artery stent placement Code(s): Z95.5 - PRESENCE OF CORONARY ANGIOPLASTY IMPLANT AND GRAFT Assessment/Plan 1. 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 CAD post PCI/Stent/CABG angina pectoris - abnormal nuclear MPI 3. PAF post Cryo-Maze procedure, [id number] score of 4 on no A/C 4. Diastolic LV dysfunction with class 0 NYHA classification LV failure 5. HTN 6. DM 7. Hypercholesterolemia 8. Syncopal episode with prodromal symptoms most likely vasovagal etiology 9. Hypothyroidism PLAN: 1. Continue Sotalol and Losartan 2. Continue Lipitor 3. Restart ASA Discharge planning Further plans are to follow James Killian MD
--- NOTE | 2016-11-01 12:23 | DS ---
Physical Examination Vital Signs: Vital Signs Temperature 98.2 F 11/01/16 06:00 Pulse Rate 51 L 11/01/16 06:00 Respiratory Rate 18 11/01/16 10:00 Blood Pressure 145/67 11/01/16 06:00 O2 Sat by Pulse Oximetry (%) 95 11/01/16 10:00 Findings/Remarks: S/P Rt hemicolectomy, doing well Had BM Evaluated by oncology,advised no chemo or RT Case discussed with Dr Duque advised DC home Constitutional: Yes: No Distress Eyes: Yes: WNL HENT: Yes: WNL, Tonsillar Exudate Cardiovascular: Yes: WNL Respiratory: Yes: WNL Gastrointestinal: Yes: WNL ...Rectal Exam: Yes: Deferred Breast(s): Yes: WNL Wound/Incision: Yes: Open to air Neurological: Yes: Alert ...Motor Strength: WNL Psychiatric: Yes: Alert Labs: CBC, BMP 10/31/16 06:00 10/31/16 06:00 Discharge Summary Reason For Visit: HEMORRHAGE Current Active Problems Abdominal pain (Acute) Anemia associated with acute blood loss (Acute) Colonic mass (Acute) Gout (Acute) Obesity (Acute) Rectal bleed (Acute) Status post right hemicolectomy (Acute) Syncope (Acute) Thrombocytopenia (Acute) Condition: Stable - Instructions Diet, Activity, Other Instructions: Dr Duque's Discharge Instructions Dear Antoine, Post Operative Instructions Physical activity Resume your normal everyday activity as tolerated no heavy lifting or exercise until seen by your surgeon. You may walk unlimited shellie of and climb stairs. You may resume driving the car when you feel safe and comfortable behind the wheel. Wound care Your surgical judy will be removed in Dr. duque's office during your follow-up visit.. Diet There are no dietary restrictions. Eat healthy, high-fiber foods. Drink 6 to 8 glasses of liquid each day. This will assist in keeping your bowels are regular. Pain management You may take Tylenol or acetaminophen or Ibuprofen (for example, Motrin, Advil etc.) Any pain prescription medication ordered should be taken as prescribed for moderate to severe pain. Call Dr. Duque for any of the following: Severe pain not relieved by medication Fever of 101 or higher Excessive bleeding or drainage on dressing Inability to urinate Call the office for an appointment in seven days. Referrals: Julito Aragon MD [Primary Care Provider] - Disposition: HOME - Home Medications Comprehensive Discharge Medication List: Ambulatory Orders Glyburide/Metformin HCl [Glyburide-Metformin 5-500 mg] 2.5 each PO HS 09/23/13 Atorvastatin Ca [Lipitor] 20 mg PO HS #0 tablet 09/26/13 Allopurinol [Zyloprim -] 100 mg PO DAILY 06/03/14 Finasteride 5 mg PO DAILY 06/28/15 Tamsulosin HCl 0.4 mg PO DAILY 06/28/15 Levothyroxine [Synthroid -] 25 mcg PO DAILY 04/06/16 Ranitidine [Zantac -] 150 mg PO BID 04/06/16 Sotalol HCl [Betapace -] 80 mg PO BID 04/06/16 Aspirin [ASA -] 81 mg PO DAILY 10/18/16 Glipizide [Glipizide ER] 2.5 mg PO DAILY 10/18/16 Losartan Potassium [Cozaar] 25 mg PO DAILY 10/18/16 Paroxetine HCl 10 mg PO DAILY 10/18/16
== END 2016-11-01 14:35 | disposition home or self-care (01) | DRG 330 ==
LOC: JER 05:23 → JERBED 06:40 → J4W 15:20 → J6S 10-23 20:32 → J4S 10-27 14:51
PROVIDERS: ADMIT Internal Medicine; ATTEND Internal Medicine
PROC: 0DBK8ZZ Excision of Ascending Colon, Via Natural or Artificial Opening Endoscopic (ICD-10-PCS; 2016-10-21)
PROC: 0DBL8ZZ Excision of Transverse Colon, Via Natural or Artificial Opening Endoscopic (ICD-10-PCS; 2016-10-21)
PROC: 0DBH8ZZ Excision of Cecum, Via Natural or Artificial Opening Endoscopic (ICD-10-PCS; 2016-10-21)
PROC: 0DBF8ZX Excision of Right Large Intestine, Via Natural or Artificial Opening Endoscopic, Diagnostic (ICD-10-PCS; 2016-10-21)
PROC: 0DB98ZX Excision of Duodenum, Via Natural or Artificial Opening Endoscopic, Diagnostic (ICD-10-PCS; 2016-10-21)
PROC: 0DB68ZX Excision of Stomach, Via Natural or Artificial Opening Endoscopic, Diagnostic (ICD-10-PCS; 2016-10-21)
PROC: 0FB04ZX Excision of Liver, Percutaneous Endoscopic Approach, Diagnostic (ICD-10-PCS; 2016-10-27)
PROC: 0D1B4ZL Bypass Ileum to Transverse Colon, Percutaneous Endoscopic Approach (ICD-10-PCS; 2016-10-27)
PROC: 0DTF4ZZ Resection of Right Large Intestine, Percutaneous Endoscopic Approach (ICD-10-PCS; principal; 2016-10-27 08:00)
DX: C18.3 Malignant neoplasm of hepatic flexure (principal); D62 Acute posthemorrhagic anemia; I50.30 Unspecified diastolic (congestive) heart failure; I48.0 Paroxysmal atrial fibrillation; I25.118 Atherosclerotic heart disease of native coronary artery with other forms of angina pectoris; R10.9 Unspecified abdominal pain; E78.5 Hyperlipidemia, unspecified; D12.3 Benign neoplasm of transverse colon; E03.9 Hypothyroidism, unspecified; E11.9 Type 2 diabetes mellitus without complications; N40.0 Benign prostatic hyperplasia without lower urinary tract symptoms; M10.9 Gout, unspecified; F41.8 Other specified anxiety disorders; K21.9 Gastro-esophageal reflux disease without esophagitis; D69.6 Thrombocytopenia, unspecified; E66.8 Other obesity; G47.39 Other sleep apnea; R55 Syncope and collapse; K74.69 Other cirrhosis of liver; D73.1 Hypersplenism; K57.30 Diverticulosis of large intestine without perforation or abscess without bleeding; K44.9 Diaphragmatic hernia without obstruction or gangrene; I11.0 Hypertensive heart disease with heart failure; Z87.891 Personal history of nicotine dependence; Z68.36 Body mass index [BMI] 36.0-36.9, adult; Z71.3 Dietary counseling and surveillance; Z95.5 Presence of coronary angioplasty implant and graft; Z95.1 Presence of aortocoronary bypass graft
CPT/HCPCS: 36415; 70450-TC; 71010-TC; 71250-TC; 74000-TC; 74020-TC; 74170-TC; 78452-TC; 80048; 80053; 80061; 80076; 81003; 81015; 82105; 82172; 82247; 82378; 82465; 82550; 82728; 82947; 82977; 83010; 83036; 83516; 83540; 83550; 83721; 83883; 84443; 84450; 84460; 84478; 84484; 85025; 85027; 85610; 85730; 86038; 86704; 86706; 86708; 86850; 86900; 86901; 87086; 87340; 88305-TC; 88307-TC; 88309-TC; 88329; 93005; 93010; 93017; 93306-TC; 93971; 94760; 99285-25; A9502; J1245; J1644; Q9967

== ENCOUNTER 2017-01-18 04:26 | Emergency (ER) | payer OTHER, MEDICARE ==
[2017-01-18 04:46] VITALS: BMI 39.5
[2017-01-18] MEDS ORDERED: GLUCAGON 1 MG KIT IVPUSH ONE (04:51)
[2017-01-18] MEDS ORDERED: GlUCAGON HUMAN RECOMBINANT 1 MG/VIAL ONE (04:52)
[2017-01-18 05:00] LABS: BASOPHIL 1.1 % (0-2.0); EOSINOPHIL 4.9 % (0-4.5); MCH 23.8 pg (25.7-33.7); MCHC 31.6 g/dl (32.0-35.9); MEAN CELL VOLUME 75.2 fl (80-96); NEUTROPHILS 62.5 % (42.8-82.8); RDW 20.7 % (11.9-15.9); WHITE BLOOD COUNT 6.9 K/mm3 (4.0-10.0)
--- NOTE | 2017-01-18 05:19 | PDOC ---
History of Present Illness - General History Source: Patient, Family Exam Limitations: No Limitations - History of Present Illness Initial Comments: 01/18/17 05:19 The patient is a 71 year old male with significant past medical history of anemia with history of hematochezia related to colonic adenocarcinoma post op laparoscopic hemicolectomy (10/27/16), hypertension, hypercholesterolemia, diabetes, CAD s/p cardiac stent, s/p triple bypass surgery, paroxysmal Afib and fibroids who presents to the ED BIBA from home for diaphoresis and elevated blood pressure prior to arrival. Patient reports he woke up sweating few hours prior to arrival and went downstairs to check his blood pressure, when he noted it was elevated and felt his heart rate a little slow. He also reports SOB. Denies lightheadedness, chest pain, jaw pain, shoulder pain, arm pain, nausea, or vomiting. As per granddaughter, at bedside, patient has been under some stress as his is currently in the hospital. The patient denies fever, chills, cough, abdominal pain, and diarrhea. Allergies: NKDA Social History: No alcohol, tobacco, or drug use reported. Past Surgical History: s/p laparoscopic hemicolectomy (10/27/16), triple bypass heart surgery (2 years ago), colonoscopy, hernia repair (right inguinal), tonsillectomy PCP: Dr. Julito Aragon Enroute Controller: Dr. Hannah Muir <Lilly Salcedo - Last Filed: 01/18/17 05:45> <Tayler Fernandez - Last Filed: 01/18/17 06:52> - General Chief Complaint: Irregular Heart Beat Stated Complaint: SLOW HEART RATE Time Seen by Provider: 01/18/17 04:47 Past History <Lilly Salcedo - Last Filed: 01/18/17 05:45> - Past Medical History Anemia: No Asthma: No Cancer: No Cardiac Disorders: Yes (STENTS , A FIB; triple bypass sx in 11/25) CVA: No COPD: No CHF: No Dementia: No Diabetes: (NIDDM resolved) GI Disorders: Yes (REFLUX) Disorders: No HTN: Yes Hypercholesterolemia: Yes HIV: Yes (kidney stones) Liver Disease: No Seizures: No Thyroid Disease: No - Surgical History Abdominal Surgery: Yes (HERNIA SX REPAIRS) Appendectomy: No Cardiac Surgery: Yes (STENTS/tripple bypass 11/22/14) Cholecystectomy: No Orthopedic Surgery: Yes (ARTHROSCOPY KNEE;) - Immunization History Immunization Up to Date: Yes - Psycho/Social/Smoking Cessation Hx Anxiety: No Suicidal Ideation: No Smoking History: Smoker current status UNK Have you smoked in the past 12 months: No Information on smoking cessation initiated: No Hx Alcohol Use: No Drug/Substance Use Hx: No Substance Use Type: None Hx Substance Use Treatment: No <Tayler Fernandez - Last Filed: 01/18/17 06:52> - Past Medical History Allergies/Adverse Reactions: Allergies Allergy/AdvReac Type Severity Reaction Status Date / Time No Known Drug Allergies Allergy Verified 01/18/17 04:46 Home Medications: Ambulatory Orders Atorvastatin Ca [Lipitor] 20 mg PO HS #0 tablet 09/26/13 Allopurinol [Zyloprim -] 100 mg PO DAILY 06/03/14 Finasteride 5 mg PO DAILY 06/28/15 Tamsulosin HCl 0.4 mg PO DAILY 06/28/15 Levothyroxine [Synthroid -] 0.025 mcg PO DAILY 04/06/16 Ranitidine [Zantac -] 150 mg PO BID 04/06/16 Sotalol HCl [Betapace -] 80 mg PO BID 04/06/16 Aspirin [ASA -] 81 mg PO DAILY 10/18/16 Glipizide [Glipizide ER] 2.5 mg PO DAILY 10/18/16 Losartan Potassium [Cozaar] 25 mg PO DAILY 10/18/16 Paroxetine HCl 10 mg PO DAILY 10/18/16 Review of Systems - Review of Systems Able to Perform ROS?: Yes Comments:: 01/18/17 05:19 CONSTITUTIONAL: +diaphoresis Absent: fever, chills, generalized weakness, malaise, loss of appetite HEENT: Absent: rhinorrhea, nasal congestion, throat pain, throat swelling, difficulty swallowing, mouth swelling, ear pain, eye pain, visual Changes CARDIOVASCULAR: +elevated blood pressure, slow heart rate Absent: chest pain, syncope, palpitations, lightheadedness, peripheral edema RESPIRATORY: +shortness of breath Absent: cough, dyspnea with exertion, orthopnea, wheezing, stridor, hemoptysis GASTROINTESTINAL: Absent: abdominal pain, abdominal distension, nausea, vomiting, diarrhea, constipation, melena, hematochezia GENITOURINARY: Absent: dysuria, frequency, urgency, hesitancy, hematuria, flank pain, genital pain MUSCULOSKELETAL: Absent: myalgia, arthralgia, joint swelling SKIN: Absent: rash, itching, pallor NEUROLOGIC: Absent: headache, focal weakness or paresthesias, dizziness, unsteady gait, seizure, mental status changes, bladder or bowel incontinence <Lilly Salcedo - Last Filed: 01/18/17 05:45> *Physical Exam - Vital Signs Last Vital Signs Temp Pulse Resp BP Pulse Ox 97.7 F 41 L 19 163/86 99 01/18/17 04:39 01/18/17 04:39 01/18/17 04:39 01/18/17 04:39 01/18/17 04:39 - Physical Exam Comments: 01/18/17 05:19 GENERAL: Well developed, well nourished. Awake and alert. No acute distress. HEENT: Normocephalic, atraumatic. PERRLA, EOMI. No conjunctival pallor. Sclera are non- icteric. Moist mucous membranes. Oropharynx is clear. NECK: Supple. Full ROM. No JVD. Carotid pulses 2+ and symmetric, without bruits. No thyromegaly. No lymphadenopathy. CARDIOVASCULAR: Bradycardia. Regular rhythm. No murmurs, rubs, or gallops. Distal pulses are 2+ and symmetric. PULMONARY: No evidence of respiratory distress. Lungs clear to auscultation bilaterally. No wheezing, rales or rhonchi. ABDOMINAL: Soft. Non-tender. Non-distended. No rebound or guarding. One month old well healed ventral scar midline. Ventral abdominal hernia. Normoactive bowel sounds. MUSCULOSKELETAL Normal range of motion at all joints. No bony deformities or tenderness. No CVA tenderness. EXTREMITIES: No cyanosis. No clubbing. No edema. No calf tenderness. SKIN: Warm and dry. Normal capillary refill. No rashes. No jaundice. NEUROLOGICAL: Alert, awake, appropriate. Cranial nerves 2-12 intact. Moving all extremities. No gross focal neurological deficits. <Lilly Salcedo - Last Filed: 01/18/17 05:45> - Vital Signs Last Vital Signs Temp Pulse Resp BP Pulse Ox 97.7 F 41 L 19 163/86 99 01/18/17 04:39 01/18/17 04:39 01/18/17 04:39 01/18/17 04:39 01/18/17 04:39 <Tayler Fernandez - Last Filed: 01/18/17 06:52> ED Treatment Course - LABORATORY CBC & Chemistry Diagram: 01/18/17 04:48 01/18/17 04:48 - ADDITIONAL ORDERS Additional order review: 01/18/17 04:48 RBC 5.56 D MCV 75.2 L MCHC 31.6 L RDW 20.7 H D Neutrophils % 62.5 Lymphocytes % 22.1 Monocytes % 9.4 Eosinophils % 4.9 H Basophils % 1.1 <Lilly Salcedo - Last Filed: 01/18/17 05:45> - LABORATORY CBC & Chemistry Diagram: 01/18/17 04:48 01/18/17 04:48 - ADDITIONAL ORDERS Additional order review: 01/18/17 04:48 RBC 5.56 D MCV 75.2 L MCHC 31.6 L RDW 20.7 H D Neutrophils % 62.5 Lymphocytes % 22.1 Monocytes % 9.4 Eosinophils % 4.9 H Basophils % 1.1 - RADIOLOGY Radiology Studies Ordered: Category Date Time Status CHEST X-RAY PORTABLE* [RAD] Stat Radiology 01/18/17 04:50 Taken <Tayler Fernandez - Last Filed: 01/18/17 06:52> Medical Decision Making - Medical Decision Making 01/18/17 05:[address] Dustin Alicia who is covering for Dr. Julito Aragon (via answering service) at 5:45 and patient's case was discussed. <Lilly Salcedo - Last Filed: 01/18/17 05:45> - Medical Decision Making 01/18/17 05:51 Pt woke up sweating at 1:30AM. States his bed is soaking wet. He was nervous and cheked his BP and it was 180-200 systolic. In the ER systolic is 160s. Labs are normal here. Here in the ER, EKG is normal pattern for the patient, however he is bradycardic at 47. Pt's CXR is the same as old, and patient's exam is normal. His lungs are clear and his abd is soft. He is on sotalol, but the dose has not been altered. He was given 0.5mg of glucagon, no change to the HR. Pt is in no distress in the ER. I spoke to PMD Sushila, who wants to admit patient for obs, given his CAD and DM and recent hemicolectomy. Pt doesn't want to stay. We will await PMD Mahesh to come to the ER this AM and evaluate the patient for admission vs discharge. In the meantime, we will get a UA. 01/18/17 06:51 UA is normal. Day ER doc will disposition the patient with Dr. Julito Aragon. <Tayler Fernandez - Last Filed: 01/18/17 06:52> *DC/Admit/Observation/Transfer - Attestations Scribe Attestion: 01/18/17 05:20 Documentation prepared by Lilly Salcedo, acting as electromedical service engineer for Tayler Fernandez MD/DO. <Lilly Salcedo - Last Filed: 01/18/17 05:45> <Tayler Fernandez - Last Filed: 01/18/17 06:52> Diagnosis at time of Disposition: Bradycardia - Discharge Dispostion Condition at time of disposition: Guarded - Referrals Referrals: Julito Aragon MD [Primary Care Provider] -
[2017-01-18 05:21] LABS: INR 0.99 (0.82-1.09); PROTHROMBIN TIME (PATIENT) 10.9 SEC (9.98-11.88)
[2017-01-18 05:32] LABS: ALBUMIN 3.4 g/dl (3.4-5.0); ANION GAP 12 (8-16); BILIRUBIN,TOTAL 0.3 mg/dL (0.2-1.0); CO2 22 mmol/L (21-32); COCKROFT - GAULT 99.76; CREATININE 1.1 mg/dL (0.7-1.3); GLUCOSE,RANDOM 171 mg/dL (74-106); SGOT/AST 13 U/L (15-37); SGPT/ALT 20 U/L (12-78); TOT PROT 6.2 g/dl (6.4-8.2)
[2017-01-18 05:34] LABS: ALK PHOS 44 U/L (45-117); TROPONIN I < 0.02 ng/ml (0.00-0.05)
[2017-01-18 06:08] LABS: MEAN PLT VOLUME 9.1 fl (7.5-11.1); PLATELET COUNT 85 K/MM3 (134-434)
[2017-01-18 06:22] LABS: URINE APPEARANCE CLEAR; URINE BILIRUBIN NEGATIVE (NEGATIVE); URINE BLOOD NEGATIVE (NEGATIVE); URINE COLOR STRAW; URINE GLUCOSE (UA) NEGATIVE (NEGATIVE); URINE KETONE NEGATIVE (NEGATIVE); URINE LEUK ESTERASE NEGATIVE (NEGATIVE); URINE NITRITE NEGATIVE (NEGATIVE); URINE UROBILINOGEN NEGATIVE E.U./dl (0.2-1.0)
[2017-01-18 06:28] LABS: URINE PROTEIN 1+ (NEGATIVE)
[2017-01-18 06:30] LABS: URINE MUCUS RARE; URINE RBC <1 /hpf (0-3); URINE WBC <1 /hpf (3-5)
[2017-01-18 07:44] VITALS: PULSE 48; TEMP 98.1
[2017-01-18 09:33] LABS: TROPONIN I < 0.02 ng/ml (0.00-0.05)
--- NOTE | 2017-01-18 09:45 | PDOC ---
*Physical Exam - Vital Signs Last Vital Signs Temp Pulse Resp BP Pulse Ox 98.1 F 48 L 20 143/74 100 01/18/17 07:39 01/18/17 07:39 01/18/17 07:39 01/18/17 07:39 01/18/17 07:39 - Physical Exam Comments: 01/18/17 09:40 Heart rate 48-50, sinus Blood pressure stable Patient seated in stretcher, comfortable and conversant, no complaints Neurologically intact, cardiopulmonary exam is normal Heart Score/ECG Review #2 ECG reviewed & interpreted by me at: 07:37 General ECG Interpretation: Sinus Rhythm, Normal Rate (aurea at 48), Normal Intervals, No acute ischemic changes ED Treatment Course - LABORATORY CBC & Chemistry Diagram: 01/18/17 04:48 01/18/17 04:48 - ADDITIONAL ORDERS Additional order review: Laboratory Results 01/18/17 01/18/17 01/18/17 08:15 06:13 04:48 INR PTT (Actin FS) Sodium 140 Potassium 4.2 Chloride 106 Carbon Dioxide 22 Anion Gap 12 BUN 24 H D Creatinine 1.1 Creat Clearance w eGFR > 60 Random Glucose 171 H D Calcium 9.0 Total Bilirubin 0.3 D AST 13 L D ALT 20 D Alkaline Phosphatase 44 L Creatine Kinase 84 87 Troponin I < 0.02 < 0.02 Total Protein 6.2 L Albumin 3.4 D Urine Color Straw Urine Appearance Clear Urine pH 5.0 Ur Specific [place] 1.015 Urine Protein 1+ H Urine Glucose (UA) Negative Urine Ketones Negative Urine Blood Negative Urine Nitrite Negative Urine Bilirubin Negative Urine Urobilinogen Negative Ur Leukocyte Esterase Negative Urine RBC <1 Urine WBC <1 Urine Mucus Rare 01/18/17 01/18/17 04:48 04:48 INR 0.99 PTT (Actin FS) 38.8 H D Sodium Potassium Chloride Carbon Dioxide Anion Gap BUN Creatinine Creat Clearance w eGFR Random Glucose Calcium Total Bilirubin AST ALT Alkaline Phosphatase Creatine Kinase Troponin I Total Protein Albumin Urine Color Urine Appearance Urine pH Ur Specific [place] Urine Protein Urine Glucose (UA) Urine Ketones Urine Blood Urine Nitrite Urine Bilirubin Urine Urobilinogen Ur Leukocyte Esterase Urine RBC Urine WBC Urine Mucus 01/18/17 04:48 RBC 5.56 D MCV 75.2 L MCHC 31.6 L RDW 20.7 H D MPV 9.1 Neutrophils % 62.5 Lymphocytes % 22.1 Monocytes % 9.4 Eosinophils % 4.9 H Basophils % 1.1 - Medications Given in the ED: ED Medications Discontinued Medications Generic Name Dose Route Start Last Admin Trade Name Raj PRStanford Reason Stop Dose Admin Glucagon 1 mg 01/18/17 04:51 01/18/17 04:55 Glucagon - IVPUSH 01/18/17 04:52 1 mg ONCE ONE Administration Medical Decision Making - Medical Decision Making 01/18/17 09:41 Received signout on this 71-year-old male with history of heart disease who presented with diaphoresis that awoke him from sleep, otherwise no complaints of chest pain or lightheadedness. His blood pressure was normal throughout the night, his initial workup was also normal including troponin. Initial discussion /plan was for observation telemetry admission, the patient was refusing, so plan at signout was to consult with his primary physicians and dispo accordingly. A repeat EKG shows sinus bradycardia at 48. A repeat troponin is negative. Case discussed with Dr. Borjas, the patient's primary physician, who saw the patient in the emergency department and recommends discharge and outpatient follow-up. Reports this has happened in the past and has not required urgent intervention. Discussed with Dr. Lemus of cardiology, covering Dr. Killian who has seen the patient, who agrees that given the sinus bradycardia and normal blood pressure the patient can be discharged. Daughter at bedside, she and patient requesting discharge, understands strict return criteria. *DC/Admit/Observation/Transfer Diagnosis at time of Disposition: Bradycardia - Discharge Dispostion Disposition: HOME Condition at time of disposition: Improved - Referrals Referrals: Julito Aragon MD [Primary Care Provider] - - Patient Instructions Printed Discharge Instructions: DI for Bradycardia Additional Instructions: Activity as tolerated. Stay hydrated. 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 You should follow up with Dr. Aragon and your leather products supervisor as soon as possible regarding today's emergency department visit. Return to the emergency department for any new or concerning symptoms, particularly pain or pressure, lightheadedness or difficulty breathing, confusion or generalized weakness. - Post Discharge Activity
[2017-01-18 10:05] VITALS: BP 110/70
--- NOTE | 2017-01-18 13:30 | EKG ---
Test Reason : Blood Pressure : / mmHG Vent. Rate : 046 BPM Atrial Rate : 046 BPM P-R Int : 180 ms QRS Dur : 094 ms QT Int : 518 ms P-R-T Axes : 085 -12 030 degrees QTc Int : 453 ms SINUS BRADYCARDIA OTHERWISE NORMAL ECG WHEN COMPARED WITH ECG OF 27-OCT-2016 13:44, NO SIGNIFICANT CHANGE WAS FOUND Confirmed by EDWARD LEDBETTER MD ([id number]) on 01/18/2017 1:29:56 PM Referred By: Confirmed By:EDWARD LEDBETTER MD
--- NOTE | 2017-01-20 13:24 | EKG ---
Test Reason : Blood Pressure : / mmHG Vent. Rate : 048 BPM Atrial Rate : 048 BPM P-R Int : 178 ms QRS Dur : 090 ms QT Int : 504 ms P-R-T Axes : -13 -11 012 degrees QTc Int : 450 ms SINUS BRADYCARDIA OTHERWISE NORMAL ECG WHEN COMPARED WITH ECG OF 18-JAN-2017 04:39, NONSPECIFIC T WAVE ABNORMALITY NOW EVIDENT IN LATERAL LEADS Confirmed by EVER STONE MD ([id number]) on 01/20/2017 1:24:19 PM Referred By: Confirmed By:EVER STONE MD
== END 2017-01-18 10:07 | disposition home or self-care (01) ==
LOC: JER 04:26 → SUPCPDRO 04:26 → JER 10:07
PROC: 3E033GC Introduction of Other Therapeutic Substance into Peripheral Vein, Percutaneous Approach (ICD-10-PCS; principal; 2017-01-18)
DX: R00.1 Bradycardia, unspecified (principal); I10 Essential (primary) hypertension; E78.00 Pure hypercholesterolemia, unspecified; I25.10 Atherosclerotic heart disease of native coronary artery without angina pectoris; Z95.1 Presence of aortocoronary bypass graft; Z95.5 Presence of coronary angioplasty implant and graft; I48.0 Paroxysmal atrial fibrillation; Z79.01 Long term (current) use of anticoagulants; Z87.442 Personal history of urinary calculi
CPT/HCPCS: 36415; 71010-TC; 80053; 81003; 81015; 82550; 84484; 85025; 85610; 85730; 93005; 93010; 96374; 99284-25

== ENCOUNTER 2022-03-08 13:38 | Inpatient (IN) | payer MEDICARE, OTHER ==
[2022-03-08 15:31] LABS: BASO % 0.9 % (0-2.0); EOS % 4.2 % (0-4.5); HEMATOCRIT 35.6 % (35.4-49); HEMOGLOBIN 12.1 GM/dL (11.7-16.9); LYMPH % 22.9 % (8-40); MCH 26.5 pg (25.7-33.7); MCHC 34.1 g/dl (32.0-35.9); MEAN CELL VOLUME 77.8 fl (80-96); MEAN PLT VOLUME 7.8 fl (7.5-11.1); MONO % 9.8 % (3.8-10.2); NEUT % 62.2 % (42.8-82.8); PLATELET COUNT 106 10^3/uL (134-434); RBC 4.57 M/mm3 (4.00-5.60); RDW 14.5 % (11.9-15.9); WHITE BLOOD COUNT 4.4 K/mm3 (4.0-10.0)
[2022-03-08 15:39] LABS: INR 1.93 (0.83-1.09); PROTHROMBIN TIME (PATIENT) 22.4 SEC (9.7-13.0)
[2022-03-08 15:41] LABS: ACTIVATED PTT 44.6 SECONDS (25.2-36.5)
[2022-03-08 16:10] LABS: ALBUMIN 3.6 g/dl (3.4-5.0); BILIRUBIN,TOTAL 0.4 mg/dL (0.2-1); BLOOD UREA NITROGEN 34.4 mg/dL (7-18); N-TERMINAL BNP 510.1 pg/ml (5-450); TOT PROT 7.4 g/dl (6.4-8.2)
[2022-03-08] MEDS ORDERED: LACTATED RINGERS SOLUTION 1000 ML INFUS.BAG IV ONE (16:36)
[2022-03-08] MEDS ORDERED: ACETAMINOPHEN 325 MG TABLET (FP) PO PRN (17:20)
[2022-03-08] MEDS ORDERED: SODIUM CHLORIDE 1,000 ML IV SCH (17:30)
[2022-03-08] MEDS ORDERED: ATORVASTATIN CA 20 MG TABLET (FP) ONE (21:30)
[2022-03-08] MEDS ORDERED: HEPARIN NA (PORCINE) 5,000 UNITS/ML 1ML VIAL ONE (21:30)
[2022-03-08] MEDS: HEPARIN NA (PORCINE) 5,000 UNITS/ML 1ML VIAL SQ SCH (21:37)
[2022-03-08] MEDS ORDERED: SOTALOL HCL 80 MG TABLET (FP) PO SCH (22:00)
[2022-03-08] MEDS ORDERED: ATORVASTATIN CA 20 MG TABLET (FP) PO SCH (22:00)
[2022-03-08] MEDS: INSULIN (NOVOLOG) ASPART 100 UNITS/ML 10ML VIAL SQ SCH (23:00)
[2022-03-09] MEDS ORDERED: LEVOTHYROXINE NA 25 MCG TABLET (FP) ONE (06:18)
[2022-03-09] MEDS ORDERED: LOSARTAN POTASSIUM 25 MG TABLET PO SCH (07:00)
[2022-03-09] MEDS ORDERED: LEVOTHYROXINE NA 25 MCG TABLET (FP) PO SCH (07:00)
[2022-03-09] MEDS ORDERED: LOSARTAN POTASSIUM 50 MG TABLET ONE (07:26)
[2022-03-09] MEDS: INSULIN (NOVOLOG) ASPART 100 UNITS/ML 10ML VIAL SQ SCH ×3 (07:31→16:54)
[2022-03-09 07:56] LABS: HEMATOCRIT 35.1 % (35.4-49); HEMOGLOBIN 11.7 GM/dL (11.7-16.9); MCH 26.2 pg (25.7-33.7); MCHC 33.4 g/dl (32.0-35.9); MEAN CELL VOLUME 78.5 fl (80-96); MEAN PLT VOLUME 8.2 fl (7.5-11.1); PLATELET COUNT 96 10^3/uL (134-434); RBC 4.47 M/mm3 (4.00-5.60); RDW 14.7 % (11.9-15.9); WHITE BLOOD COUNT 4.2 K/mm3 (4.0-10.0)
[2022-03-09 08:01] LABS: CALCIUM 9.4 mg/dL (8.5-10.1)
[2022-03-09 08:02] LABS: BLOOD UREA NITROGEN 35.3 mg/dL (7-18)
[2022-03-09 08:05] LABS: CREATININE 2.8 mg/dL (0.55-1.3)
[2022-03-09] MEDS ORDERED: TAMSULOSIN HCL 0.4 MG CAP PO SCH (08:30)
[2022-03-09] MEDS ORDERED: TAMSULOSIN HCL 0.4 MG CAP ONE (08:42)
[2022-03-09] MEDS ORDERED: FAMOTIDINE 10 MG TABLET ONE (09:25)
[2022-03-09] MEDS ORDERED: PARoxetine HCL 10 MG TABLET ONE (09:25)
[2022-03-09] MEDS ORDERED: ASPIRIN 81 MG CHEWABLE TABLETS ONE (09:25)
[2022-03-09] MEDS ORDERED: HEPARIN NA (PORCINE) 5,000 UNITS/ML 1ML VIAL ONE (09:26)
[2022-03-09] MEDS: HEPARIN NA (PORCINE) 5,000 UNITS/ML 1ML VIAL SQ SCH (09:57)
[2022-03-09] MEDS ORDERED: PARoxetine HCL 10 MG TABLET PO SCH (10:00)
[2022-03-09] MEDS ORDERED: ALLOPURINOL 100 MG TABLET (FP) PO SCH (10:00)
[2022-03-09] MEDS ORDERED: FINASTERIDE 5 MG TABLET (FP) PO SCH (10:00)
[2022-03-09] MEDS ORDERED: ASPIRIN 81 MG CHEWABLE TABLETS PO SCH (10:00)
[2022-03-09] MEDS ORDERED: FAMOTIDINE 10 MG TABLET PO SCH (10:00)
[2022-03-09] MEDS ORDERED: SODIUM CHLORIDE 1,000 ML IV SCH ×2 (16:41→21:36)
[2022-03-09] MEDS ORDERED: ONDANSETRON 4 MG/2 ML VIAL IVPUSH PRN ×2 (17:20→21:36)
[2022-03-09 18:08] LABS: URINE UREA NITROGEN 623 mg/dL (350-1000)
[2022-03-09] MEDS ORDERED: ACETAMINOPHEN 325 MG TABLET (FP) PO PRN (21:36)
[2022-03-09] MEDS ORDERED: ATORVASTATIN CA 20 MG TABLET (FP) PO SCH (22:00)
[2022-03-09] MEDS: INSULIN SLIDING SCALE (NOVOLOG) 1 VIAL SQ SCH (22:45)
[2022-03-09 23:51] VITALS: BMI 31.8
[2022-03-10] MEDS: INSULIN SLIDING SCALE (NOVOLOG) 1 VIAL SQ SCH ×2 (06:24→12:28)
[2022-03-10] MEDS ORDERED: LEVOTHYROXINE NA 25 MCG TABLET (FP) PO SCH ×2 (07:00→09:30)
[2022-03-10] MEDS ORDERED: TAMSULOSIN HCL 0.4 MG CAP PO SCH (08:30)
[2022-03-10] MEDS ORDERED: FAMOTIDINE 10 MG TABLET PO SCH (10:00)
[2022-03-10] MEDS ORDERED: ASPIRIN 81 MG CHEWABLE TABLETS PO SCH (10:00)
[2022-03-10] MEDS ORDERED: PARoxetine HCL 10 MG TABLET PO SCH (10:00)
[2022-03-10] MEDS ORDERED: ALLOPURINOL 100 MG TABLET (FP) PO SCH (10:00)
[2022-03-10] MEDS ORDERED: AMIODARONE HCL 200 MG TABLET PO SCH ×2 (10:00)
[2022-03-10] MEDS ORDERED: FINASTERIDE 5 MG TABLET (FP) PO SCH (10:00)
[2022-03-10 10:42] LABS: HEMATOCRIT 32.9 % (35.4-49); HEMOGLOBIN 11.4 GM/dL (11.7-16.9); MCH 26.9 pg (25.7-33.7); MCHC 34.8 g/dl (32.0-35.9); MEAN CELL VOLUME 77.4 fl (80-96); MEAN PLT VOLUME 8.3 fl (7.5-11.1); PLATELET COUNT 97 10^3/uL (134-434); RBC 4.25 M/mm3 (4.00-5.60); RDW 14.6 % (11.9-15.9); WHITE BLOOD COUNT 4.1 K/mm3 (4.0-10.0)
[2022-03-10 11:12] LABS: CALCIUM 9.5 mg/dL (8.5-10.1)
[2022-03-10 11:13] LABS: ALBUMIN 3.5 g/dl (3.4-5.0); BLOOD UREA NITROGEN 34.7 mg/dL (7-18); MAGNESIUM 1.9 mg/dL (1.8-2.4)
[2022-03-10 11:16] LABS: CREATININE 2.4 mg/dL (0.55-1.3)
[2022-03-10 11:17] LABS: TOT PROT 7.1 g/dl (6.4-8.2)
[2022-03-10 11:18] LABS: BILIRUBIN,TOTAL 0.5 mg/dL (0.2-1)
[2022-03-10 14:33] VITALS: BP 152/90; PULSE 64; TEMP 98.2
[2022-03-10] MEDS ORDERED: RIVAROXABAN 15 MG TABLET PO SCH ×2 (18:00)
== END 2022-03-10 17:02 | disposition home or self-care (01) | DRG 683 ==
LOC: JER 13:38 → JERBED 16:38 → J6S 03-09 21:03
PROVIDERS: ADMIT Internal Medicine; ATTEND Internal Medicine
DX: N17.9 Acute kidney failure, unspecified (principal); I13.0 Hypertensive heart and chronic kidney disease with heart failure and stage 1 through stage 4 chronic kidney disease, or unspecified chronic kidney disease; I50.22 Chronic systolic (congestive) heart failure; I25.10 Atherosclerotic heart disease of native coronary artery without angina pectoris; K21.9 Gastro-esophageal reflux disease without esophagitis; I48.0 Paroxysmal atrial fibrillation; E78.5 Hyperlipidemia, unspecified; N40.0 Benign prostatic hyperplasia without lower urinary tract symptoms; M10.9 Gout, unspecified; G47.33 Obstructive sleep apnea (adult) (pediatric); K74.60 Unspecified cirrhosis of liver; F41.9 Anxiety disorder, unspecified; D64.9 Anemia, unspecified; E03.9 Hypothyroidism, unspecified; D69.6 Thrombocytopenia, unspecified; E11.22 Type 2 diabetes mellitus with diabetic chronic kidney disease; N18.30 Chronic kidney disease, stage 3 unspecified; Z95.0 Presence of cardiac pacemaker; Z95.5 Presence of coronary angioplasty implant and graft; Z95.1 Presence of aortocoronary bypass graft
CPT/HCPCS: 0241U-QW; 36415; 71046-TC-FY; 71250-TC; 76775-TC; 80048; 80053; 82570; 82962; 83735; 83880; 84156; 84300; 84443; 84484; 84540; 85025; 85027; 85610; 85730; 93005; 93010; 93306-TC; 99285-25; J1644